=== PATIENT | female | born 1980 | race Caucasian/White ===

== ENCOUNTER 2020-11-27 14:56 | Outpatient (REF) | payer BC, SELFPAY ==
--- NOTE | 2020-11-27 15:00 | MM_ITS ---
EXAMINATION: MM SCREENING DIGITAL BREAST TOMOSYNTHESIS, BILATERAL CLINICAL INFORMATION: Screening. Asymptomatic. No prior breast imaging. Age 40. No known family history breast cancer. The lifetime risk of breast cancer based on the Tyrer-Cuzick Model is 7%. COMPARISON: None (current study represents initial baseline exam). TECHNIQUE: Digital breast tomosynthesis is performed in both the craniocaudal and mediolateral oblique views along with computer-aided detection (CAD). Synthesized 2D images are generated from the tomosynthesis. FINDINGS: The breasts are heterogeneously dense, which may obscure small masses (ACR BI-RADS breast composition Category c). Breast tissue composition borders on average fibroglandular. There is a dermal lesion overlying the mid 11:00 left breast. There are no significant masses, abnormal calcifications, or other abnormalities. The axilla are unremarkable. MM/MM tomosynthesis screening BI IMPRESSION: No mammographic evidence of malignancy. ASSESSMENT: BI-RADS 2: Benign RECOMMENDATION: Routine annual mammography screening. This patient's information was entered into a reminder system with a target due date for their next mammogram.
== END 2020-11-27 14:57 | disposition home or self-care (01) ==
LOC: HO.MAMMO 14:56
PROVIDERS: PCP Internal Medicine; Visit Provider Internal Medicine
DX: Z12.31 Encounter for screening mammogram for malignant neoplasm of breast (principal)
CPT/HCPCS: 77063; 77067

== ENCOUNTER 2021-09-21 08:08 | Outpatient (REF) | payer BC, SELFPAY ==
[2021-09-21 11:25] LABS: MANUAL DIFF FLAG NO
[2021-09-21 11:33] LABS: Basophils Percent Auto 0.5 % (0-2); Eosinophils Absolute Auto 0.1 X10*3/uL (0.0-0.4); Eosinophils Percent Auto 1.9 % (0-4); Hematocrit 40.1 % (37.0-47.0); Hemoglobin 13.5 g/dl (12.0-16.0); Imm Gran Abs Auto 0.02 X10*3/uL (0.00-0.03); Imm Gran Pct Auto 0.3 % (0.0-0.4); Lymphocytes Absolute Auto 2.4 X10*3/uL (1.2-4.9); Lymphocytes Percent Auto 36.7 % (20-40); Mean Corpuscular HGB Conc 33.7 g/dl (31.0-35.0); Mean Corpuscular Hemoglobin 29.5 pg (27.0-33.0); Mean Corpuscular Volume 87.6 fL (80.0-98.0); Mean Platelet Volume 12.2 fL (9.4-12.3); Monocytes Absolute Auto 0.5 X10*3/uL (0.1-1.2); Neutrophils Absolute Auto 3.37 x10*3/uL (2.0-8.3); Neutrophils Percent Auto 52.6 % (45-73); Platelet Count 212 X10*3/uL (160-400); Red Blood Count 4.58 X10*6/uL (4.20-5.50); Red Cell Distribution Width 12.3 % (11.0-16.0); White Blood Count 6.4 X10*3/uL (4.8-10.8)
[2021-09-21 11:52] LABS: Ethanol < 10 mg/dL
[2021-09-21 12:08] LABS: Alanine Aminotransferase 28 U/L (0-31); Albumin Level 4.3 g/dL (3.5-5.0); Alkaline Phosphatase 47 U/L (39-117); Anion Gap 11 (12-20); Aspartate Amino Transferase 18 U/L (5-31); Bilirubin Total 0.5 mg/dL (0.0-1.0); Blood Urea Nitrogen 11 mg/dL (9-16); Carbon Dioxide 25 mmol/L (22-29); Chloride 104 mmol/L (96-108); Cholesterol 195 mg/dL; Estimated Glomerular Filt Rate > 60; Glucose Fasting 114 mg/dL (60-99); HDL Cholesterol 44 mg/dL; LDL Cholesterol Calculated 102 mg/dl; Potassium 4.3 mmol/L (3.3-5.1); Sodium 136 mmol/L (135-145); Total Protein 6.8 g/dL (6.5-8.0); Triglycerides 249 mg/dL
== END 2021-09-21 08:09 | disposition home or self-care (01) ==
LOC: HO.HMGCLDS 08:08
PROVIDERS: PCP Internal Medicine; Visit Provider Internal Medicine
DX: Z00.01 Encounter for general adult medical examination with abnormal findings (principal); E66.3 Overweight; K21.9 Gastro-esophageal reflux disease without esophagitis; F10.20 Alcohol dependence, uncomplicated
CPT/HCPCS: 36415; 80053; 80061; 82077; 85025

== ENCOUNTER 2021-11-15 10:29 | Outpatient (REF) | payer BC, SELFPAY | END 2021-11-15 10:30 | disposition home or self-care (01) | LOC: HO.HMGCLDS 10:29 | PROVIDERS: Visit Provider Internal Medicine | DX: Z20.822 Contact with and (suspected) exposure to COVID-19 (principal) | CPT/HCPCS: C9803; U0003; U0005 ==

== ENCOUNTER 2022-01-18 21:38 | Inpatient (IN) | payer BC, SELFPAY ==
--- NOTE | ~2022-01-18 | CT_ITS ---
EXAMINATION: CT ABDOMEN AND PELVIS WITH CONTRAST CLINICAL INFORMATION: Post perforated diverticulitis. Question abscess. COMPARISON: Previous CT scan of the abdomen and pelvis earlier this month TECHNIQUE: Multidetector volumetric images were obtained from the superior aspect of the liver through the pubic symphysis following administration 85 mL of Omnipaque 350 intravenous contrast. Sagittal and coronal reformatted images were obtained on the technologist's workstation. Oral contrast: No This CT examination was performed using dose optimization techniques as appropriate, variously including the following: *Automated exposure control *Adjustment of mA and/or kV according to patient size (this includes techniques or standardized protocols for targeted exams where dose is matched to indication/reason for exam; i.e. extremities or head) *Use of iterative reconstruction technique DLP: 435 mGy-cm FINDINGS: LUNG BASES: There are small bilateral pleural effusions and bilateral lower lobe atelectasis. LIVER, GALLBLADDER, AND BILIARY TREE: The liver is normal in size, shape, and attenuation. No focal hepatic lesion or biliary ductal dilatation is present. The gallbladder is unremarkable with no evidence of radiopaque gallstones, gallbladder wall thickening, or obvious pericholecystic inflammatory changes. PANCREAS: Unremarkable. SPLEEN: Unremarkable. ADRENAL GLANDS: Unremarkable. KIDNEYS AND URETERS: The kidneys are normal in size, shape, and attenuation. No hydronephrosis, hydroureter, or calculi seen. No perinephric stranding. BLADDER: Unremarkable. GASTROINTESTINAL TRACT: There are new postsurgical changes to the left colon with left lower quadrant colostomy. There is still wall thickening and edema of the cecum questionable for colitis. The appendix has been removed. Small and large bowel is otherwise unremarkable. No free air is seen. There is a small amount of extraperitoneal air seen in the pelvis. There is trace ascites, greatest in the left lower quadrant. ABDOMINAL WALL: There are postoperative changes to the midline abdominal wall. There is a left lower quadrant colostomy. There is a small amount of air seen in the subcutaneous fat surrounding the colostomy. LYMPH NODES: Normal. VASCULAR: Unremarkable. PELVIC VISCERA: There is an IUD in the uterus satisfactory position. There is a 3 cm enhancing lesion in the posterior uterine body probably representing a fibroid. There is a 2 cm left ovarian cyst. May be a small 1 cm right ovarian cyst. OSSEOUS STRUCTURES: Unremarkable. CT/CT abdomen pelvis w con IMPRESSION: New postsurgical changes to the colon and left lower quadrant colostomy. Persistent mild wall thickening and edema of the cecum questionable for colitis. The appendix has been removed. Trace ascites, greatest in the left lower quadrant. No abscess. Small amount of extraperitoneal air in the pelvis. IUD in the uterus and satisfactory lesion. 2 cm left ovarian cyst. Fleischner guidelines were followed.
--- NOTE | ~2022-01-18 | CT_ITS ---
EXAMINATION: CT ABDOMEN AND PELVIS WITH CONTRAST CLINICAL INFORMATION: Left lower quadrant pain COMPARISON: Ultrasound abdomen 08/20/2012 TECHNIQUE: Multidetector volumetric images were obtained from the superior aspect of the liver through the pubic symphysis following administration 85 mL of Omnipaque 350 intravenous contrast. Sagittal and coronal reformatted images were obtained on the technologist's workstation. Oral contrast: No This CT examination was performed using dose optimization techniques as appropriate, variously including the following: *Automated exposure control *Adjustment of mA and/or kV according to patient size (this includes techniques or standardized protocols for targeted exams where dose is matched to indication/reason for exam; i.e. extremities or head) *Use of iterative reconstruction technique DLP: 585 mGy-cm FINDINGS: LUNG BASES: The visualized lung bases are unremarkable. Some minimal basilar atelectasis is seen. LIVER, GALLBLADDER, AND BILIARY TREE: The liver is normal in size, shape, and attenuation. No focal hepatic lesion or biliary ductal dilatation is present. The gallbladder is unremarkable with no evidence of radiopaque gallstones, gallbladder wall thickening, or obvious pericholecystic inflammatory changes. PANCREAS: Unremarkable. SPLEEN: Unremarkable. ADRENAL GLANDS: Unremarkable. KIDNEYS AND URETERS: The kidneys are normal in size, shape, and attenuation. No hydronephrosis, hydroureter, or calculi seen. No perinephric stranding. BLADDER: Unremarkable. GASTROINTESTINAL TRACT: Free intraperitoneal air is present with multiple tiny air bubbles seen in the mesentery. There are number of abnormalities seen including an inflammatory process in the region of the cecum as well as in the region of the sigmoid both of which are quite close to one another. Differential diagnosis would include a ruptured cecal diverticulum with diverticulitis or possibly sigmoid diverticulum although the sigmoid changes may be secondary inflammation. Some secondary inflammation is also seen in some small bowel loops with some associated tethering. No drainable abscess is seen. No portal venous gas is present. No large volume ascites is seen. ABDOMINAL WALL: No significant hernia is appreciated. LYMPH NODES: Normal. VASCULAR: Unremarkable aside from dilated refluxing left ovarian vein with only a small number of pelvic varices.. PELVIC VISCERA: An anteverted uterus is present which contains an IUD in good position. Uterine fibroids may be present. An abnormal adnexal mass is not seen. A small amount of free intraperitoneal fluid is present.. OSSEOUS STRUCTURES: Unremarkable. CT/CT abdomen pelvis w con IMPRESSION: There is a ruptured viscus with free intraperitoneal air. The culprit probably is the cecum with a ruptured diverticulum. The appendix is normal. Inflammatory changes are also present around the sigmoid, but this could be secondarily involved. Some mild inflammatory changes also seen in some small bowel loops with some mild tethering. No focal drainable collection is seen. Incidental note made of probable uterine fibroids which could be confirmed with elective pelvic ultrasound when patient is stable. This critical result was discussed with Kellie ARSHAD at 12:20 AM on 01/19/2022 and it was ascertained that the content and urgency of the report was understood at the time of direct communication. Fleischner guidelines were followed.
--- NOTE | ~2022-01-18 | XR_ITS ---
EXAMINATION: XR CHEST CLINICAL INFORMATION: Right chest pain COMPARISON: 03/22/2016 TECHNIQUE: AP portable view of the chest was obtained. FINDINGS: Low lung volumes. There are increased markings at both lung bases. This could represent acute airspace disease. Blunting of both costophrenic angles suggest associated effusions. Pneumonia is a concern. No pneumothorax. The heart and mediastinum are grossly normal; low volumes distorts mediastinal structures. Pulmonary vasculature is normal in caliber without edema. Normal gas pattern. No acute osseous finding. XR/XR chest 1V IMPRESSION: Patchy airspace opacities at both lung bases with blunting of the costophrenic angles suggests acute airspace disease and small effusions.
--- NOTE | ~2022-01-18 | CT_ITS ---
EXAMINATION: CT ABDOMEN AND PELVIS WITHOUT CONTRAST CLINICAL INFORMATION: Follow-up perforated bowel. COMPARISON: None. TECHNIQUE: Multidetector volumetric imaging was performed from the superior aspect of the liver through the pubic symphysis. Sagittal and coronal reformatted images were obtained on the technologist's workstation. This CT examination was performed using dose optimization techniques as appropriate, variously including the following: *Automated exposure control *Adjustment of mA and/or kV according to patient size (this includes techniques or standardized protocols for targeted exams where dose is matched to indication/reason for exam; i.e. extremities or head) *Use of iterative reconstruction technique DLP: 486 mGy-cm FINDINGS: LUNG BASES: Heart size normal. There is bilateral posterior pleural reaction seen. LIVER, GALLBLADDER, AND BILIARY TREE: The liver is normal in size, shape, and attenuation. No focal hepatic lesion or biliary ductal dilatation is present. The gallbladder is unremarkable with no evidence of radiopaque gallstones, gallbladder wall thickening, or obvious pericholecystic inflammatory changes. PANCREAS: Unremarkable. SPLEEN: Unremarkable. ADRENAL GLANDS: Unremarkable. KIDNEYS AND URETERS: The kidneys are normal in size, shape, and attenuation. No hydronephrosis, hydroureter, or calculi seen. No perinephric stranding. BLADDER: Unremarkable. GASTROINTESTINAL TRACT: There is free intraperitoneal air, slightly less than previous exam. However, there is likely an abscess with air-fluid level in the right lower quadrant adjacent and inferior to the cecum. Even though the appendix is visualized in the mid and distal segment, the base is not visualized on the previous exam or on the present exam. Differential diagnosis includes perforation of the base of cecum, appendix or a cecal diverticulum. There is significant inflammation with secondary mural thickening and fat stranding involving the terminal ileum and the redundant sigmoid colon. ABDOMINAL WALL: No significant hernia is appreciated. LYMPH NODES: Small shotty mesenteric lymph nodes are seen. The finding nodule right mesenteric lymph node on image 51/3. VASCULAR: Unremarkable. PELVIC VISCERA: The uterus is anteverted with an IUD well located within the endometrial canal. There is no free fluid. OSSEOUS STRUCTURES: No aggressive lytic or sclerotic process seen. CT/CT abdomen pelvis wo con IMPRESSION: Known ruptured viscus with intraperitoneal free air slightly decreased in size compared to earliest study from 01/18/2022. Complex inflammatory changes in the right lower quadrant inferior to the cecum. Differential diagnosis includes ruptured cecal diverticulum, ruptured base of appendix or ruptured cecal/appendix mass. There are reactionary mural thickening involving the redundant sigmoid colon, terminal ileum with adjacent fat stranding. There is bilateral dependent posterior pleural thickening similar to previous study. Results were discussed with Dr. Jorge Marrero at 1:10 PM in person. Fleischner guidelines were followed.
[2022-01-18 21:49] VITALS: BP 121/94; PULSE 117; RESP 16; TEMP 38.8; O2SAT 94; BMI 27.4
[2022-01-18 22:15] LABS: Basophils Percent Auto 0.2 % (0-2); Eosinophils Percent Auto 0.1 % (0-4); Hematocrit 36.4 % (37.0-47.0); Hemoglobin 12.1 g/dl (12.0-16.0); Imm Gran Abs Auto 0.05 X10*3/uL (0.00-0.03); Imm Gran Pct Auto 0.4 % (0.0-0.4); Lymphocytes Absolute Auto 0.9 X10*3/uL (1.2-4.9); Lymphocytes Percent Auto 6.5 % (20-40); MANUAL DIFF FLAG SCAN; Mean Corpuscular HGB Conc 33.2 g/dl (31.0-35.0); Mean Corpuscular Hemoglobin 29.7 pg (27.0-33.0); Mean Corpuscular Volume 89.2 fL (80.0-98.0); Monocytes Absolute Auto 0.4 X10*3/uL (0.1-1.2); Monocytes Percent Auto 2.7 % (2-11); Neutrophils Absolute Auto 12.2 x10*3/uL (2.0-8.3); Neutrophils Percent Auto 90.1 % (45-73); Platelet Count 219 X10*3/uL (160-400); Red Blood Count 4.08 X10*6/uL (4.20-5.50); Red Cell Distribution Width 12.5 % (11.0-16.0); SCAN SMEAR FLAG 1; White Blood Count 13.5 X10*3/uL (4.8-10.8)
[2022-01-18 22:27] VITALS: BP 148/93; PULSE 121; RESP 18; TEMP 38.6; O2SAT 96
[2022-01-18 22:31] LABS: Anion Gap 15 (12-20); Blood Urea Nitrogen 9 mg/dL (9-16); Carbon Dioxide 23 mmol/L (22-29); Chloride 100 mmol/L (96-108); Creatinine Clr Calc Pharmacy 101.9; Estimated Glomerular Filt Rate > 60; Glucose Random 111 mg/dL (60-115); Potassium 3.7 mmol/L (3.3-5.1); Sodium 134 mmol/L (135-145)
[2022-01-18 22:35] LABS: SLIDE REVIEW VERIFIED
--- NOTE | 2022-01-18 22:52 | ED_ITS ---
HPI - Abdominal Pain General Chief Complaint: Abdominal Pain Stated Complaint: lower abd pain Time Seen by Provider: 01/18/22 22:40 Source: patient Mode of arrival: ambulatory Limitations: no limitations History of Present Illness HPI narrative: This is a 41-year-old female past medical history significant for alcoholism presenting to the emergency department with complaints of severe left lower quadrant and lower abdominal pain severe x1 day. Patient tells me that recently she was diagnosed with diverticulitis, she was seen at [facility] yesterday discharged home on oxycodone for pain. At this time patient tells me that her pain became severe, and on manageable even with p.o. oxycodone. Patient tells me that everything hurts, bumps on the road, touching it. She rates it a 10/10 pain she tells me it is worse in the left lower quadrant however it is all over her lower abdomen at this time. She also reports a fever of 102 at home. Here she is febrile. She appears to be very uncomfortable. She denies nausea, vomiting, chest pain, shortness of breath, diarrhea, constipation. MD elicited complaint: abdominal pain Pertinent past history: diverticulitis Onset (ago): day(s) (1) Pain Consistency: constant Location: none Severity: severe Pain scale (0-10): 10 Quality: stabbing and sharp Radiation: none Migration to: no migration Exacerbating factors: movement Relieving factors: nothing Associated symptoms: denies other symptoms Related Data Previous Rx's Medication Instructions Recorded lorazepam 0.5 mg tablet 0.5 mg PO DAILY PRN 2 Days #2 tab 09/27/21 pantoprazole 40 mg tablet,delayed 40 mg PO DAILY #90 tab 11/18/21 release Allergies Allergy/AdvReac Type Severity Reaction Status Date / Time No Known Allergies Allergy Unverified 09/17/21 12:04 [No Known Allergies*] Review of Systems Review of Systems Constitutional : No Weight loss, No Fever, No Chills ENT/Mouth :? No sore throat, No Rhinorrhea Eyes: No Swelling, No Redness Cardiovascular : No Chest Pain, No SOB, NoEdema Respiratory : No Cough, No Sputum, No Wheezing Gastrointestinal : No Nausea, No Vomiting, No Diarrhea, positive abdominal Pain, No Hematochezia, No Melena Genitourinary : No Dysuria, No Urinary Frequency, No Hematuria, No Urgency Musculoskeletal : No joint pain, No Myalgias, No Joint Swelling Skin : No Skin Lesions, No rash Neuro : No Weakness, No Numbness, No Dizziness, No Headache Psych : No Anxiety/Panic, No Depression All other systems reviewed and are negative. Yes all other systems are reviewed and are negative [facility] Past Medical History Attestation statement: The following information was validated with the patient. Source: old records reviewed and nursing notes reviewed Medical History Diverticulitis Surgical History No pertinent past surgical history Family History Family History Father HTN (hypertension) History of CVA (cerebrovascular accident) Mother No problems noted. Maternal Grandfather Myocardial infarction Paternal Grandfather Myocardial infarction Brother No problems noted. Sister No problems noted. Daughter No problems noted. Daughter No problems noted. Social History Social History Housing: House Patient Tobacco Use Status: Current everyday Tobacco user Cigarettes Per Day: 1 Advance Directives: No Patient : No Current occupational status: employed Physical Exam ED Vital Signs: Vital Signs - 24 hr 01/18/22 21:49 01/18/22 22:27 Temperature 101.8 F H 101.5 F H Pulse Rate 117 H 121 H Respiratory Rate 16 18 Blood Pressure 121/94 H 148/93 H Pulse Oximetry 94 96 BMI result Body Mass Index 27.4 Patient is noted to be febrile, tachycardic. Appearance: Alert.? Oriented X3.? No acute distress.? Patient appears very uncomfortable. Pain to abdomen when I kick stretcher. Head: Normocephalic, atraumatic, no step-offs or deformities Eyes: Pupils equal, round and reactive to light.? ENT: Pharynx normal.? Neck: Normal inspection.? Neck supple.? CVS: Rapid rate regular rhythm, likely sinus tachycardia. Pulses normal.? Respiratory: No respiratory distress.? Breath sounds normal.? Abdomen: Soft and + severe abdominal pain with palpation to left lower quadrant, and lower abdomen. Patient reports pain when I kick the stretcher concerning for peritonitis/acute abdomen Skin: Skin warm and dry.? Normal skin color.? Normal skin turgor.? Extremities: No lower extremity edema.? No calf ttp. 5/5 strength to bilateral upper and lower extremities Back: No midline tenderness, no C-spine tenderness, full range of motion, no CVA tenderness bilaterally. Neuro: Oriented X 3.? No motor deficit.? No sensory deficit. CN 2-12 intact Course Reevaluation(s) Reevaluation #1: Patient noted to have leukocytosis. No acute electrolyte abnormalities. UA pending. COVID pending. Time: 22:57 Reevaluation #2: Received a critical call from [facility]- CT abdomen free air in abdomen could be cecum/sigmoid likely cecum. Time: 00:25 Reevaluation #3: Spoke to Dr. Millan who will admit patient to surgery. Time: 00:38 MDM - Abdominal Pain MDM Narrative Medical decision making narrative: 1030 41 yo f presents w/ severe lower abdominal pain, has been present for we cover pain worse this morning. Was evaluated yesterday at [place] where she was told she had acute diverticulitis. Today she presents with fevers as well. Upon physical examination patient very uncomfortable, grimacing. She reports pain when acute the stretcher concerning for acute abdomen/peritonitis. Pain with palpation to left lower quadrant. An to all lower abdomen. Normoactive bowel sounds. Id rapid rate regular rhythm consistent with sinus tachycardia. Lungs clear. Patient noted to be febrile. And tachycardic. At this time sections suspected fluids, and antibiotics will be ordered prophylactically as well as blood cultures and a lactic. Plan is lab work, CT of the abdomen to rule out perforated diverticulum. Medical Records Attestation: I reviewed the patient's medical records. Lab Data Attestation: I reviewed the patient's lab results. Result diagrams: 01/18/22 22:00 01/18/22 22:00 Labs: Lab Results 01/18/22 01/18/22 01/18/22 Range/Units 22:00 22:00 22:43 WBC 13.5 H (4.8-10.8) X10*3/uL RBC 4.08 L (4.20-5.50) X10*6/uL Hgb 12.1 (12.0-16.0) g/dl Hct 36.4 L (37.0-47.0) % MCV 89.2 (80.0-98.0) fL MCH 29.7 (27.0-33.0) pg MCHC 33.2 (31.0-35.0) g/dl RDW 12.5 (11.0-16.0) % Plt Count 219 (160-400) X10*3/uL MPV 11.0 (9.4-12.3) fL Immature Gran % (Auto) 0.4 (0.0-0.4) % Neut % (Auto) 90.1 H (45-73) % Lymph % (Auto) 6.5 L (20-40) % [place] % (Auto) 2.7 (2-11) % Eos % (Auto) 0.1 (0-4) % Baso % (Auto) 0.2 (0-2) % Lymph # (Auto) 0.9 L (1.2-4.9) X10*3/uL [place] # (Auto) 0.4 (0.1-1.2) X10*3/uL Eos # (Auto) 0.0 (0.0-0.4) X10*3/uL Baso # (Auto) 0.0 (0.0-0.2) X10*3/uL Abs Immat Gran (auto) 0.05 H (0.00-0.03) X10*3/uL Absolute Neuts (auto) 12.2 H (2.0-8.3) x10*3/uL Absolute Nucleated RBC 0.000 (0.0-0.012) X10*3/uL Nucleated RBC % (auto) 0.0 (0.0-0.2) /100WBC Smear Tech's Comments VERIFIED Sodium 134 L (135-145) mmol/L Potassium 3.7 (3.3-5.1) mmol/L Chloride 100 (96-108) mmol/L Carbon Dioxide 23 (22-29) mmol/L Anion Gap 15 (12-20) BUN 9 (9-16) mg/dL Creatinine 0.65 (0.5-1.4) mg/dL Estim Creat Clear Calc 101.9 Estimated GFR > 60 Random Glucose 111 (60-115) mg/dL Lactic Acid (0.5-2.0) mmol/L Calcium 9.0 (8.4-10.2) mg/dL Lipase 9 (8-78) U/L Urine Color DK YELLOW Urine Appearance HAZY Urine pH 6.0 (5.0-8.0) Ur Specific [place] >= 1.030 H (1.005-1.025) Urine Protein 2+ H (NEG-TRACE) MG/DL Urine Glucose (UA) NEG (NEG) MG/DL Urine Ketones >=80 (NEG) MG/DL Urine Blood TRACE (NEG) Urine Nitrite NEG (NEG) Ur Leukocyte Esterase NEG (NEG) Urine RBC 10-14 H (0) /HPF Urine WBC 0 (0-4) /HPF Ur Squamous Epith Cells 3+ /LPF Urine Bacteria NONE /LPF Granular Casts 1-4 /LPF Urine Mucus 4+ /LPF Urine Test (NEGATIVE) COVID-19 ([facility]) (Negative) COVID-19 Clin Com 01/18/22 01/18/22 01/19/22 Range/Units 22:43 22:57 00:12 WBC (4.8-10.8) X10*3/uL RBC (4.20-5.50) X10*6/uL Hgb (12.0-16.0) g/dl Hct (37.0-47.0) % MCV (80.0-98.0) fL MCH (27.0-33.0) pg MCHC (31.0-35.0) g/dl RDW (11.0-16.0) % Plt Count (160-400) X10*3/uL MPV (9.4-12.3) fL Immature Gran % (Auto) (0.0-0.4) % Neut % (Auto) (45-73) % Lymph % (Auto) (20-40) % [place] % (Auto) (2-11) % Eos % (Auto) (0-4) % Baso % (Auto) (0-2) % Lymph # (Auto) (1.2-4.9) X10*3/uL [place] # (Auto) (0.1-1.2) X10*3/uL Eos # (Auto) (0.0-0.4) X10*3/uL Baso # (Auto) (0.0-0.2) X10*3/uL Abs Immat Gran (auto) (0.00-0.03) X10*3/uL Absolute Neuts (auto) (2.0-8.3) x10*3/uL Absolute Nucleated RBC (0.0-0.012) X10*3/uL Nucleated RBC % (auto) (0.0-0.2) /100WBC Smear Tech's Comments Sodium (135-145) mmol/L Potassium (3.3-5.1) mmol/L Chloride (96-108) mmol/L Carbon Dioxide (22-29) mmol/L Anion Gap (12-20) BUN (9-16) mg/dL Creatinine (0.5-1.4) mg/dL Estim Creat Clear Calc Estimated GFR Random Glucose (60-115) mg/dL Lactic Acid 1.0 (0.5-2.0) mmol/L Calcium (8.4-10.2) mg/dL Lipase (8-78) U/L Urine Color Urine Appearance Urine pH (5.0-8.0) Ur Specific [place] (1.005-1.025) Urine Protein (NEG-TRACE) MG/DL Urine Glucose (UA) (NEG) MG/DL Urine Ketones (NEG) MG/DL Urine Blood (NEG) Urine Nitrite (NEG) Ur Leukocyte Esterase (NEG) Urine RBC (0) /HPF Urine WBC (0-4) /HPF Ur Squamous Epith Cells /LPF Urine Bacteria /LPF Granular Casts /LPF Urine Mucus /LPF Urine Test NEGATIVE (NEGATIVE) COVID-19 ([facility]) Negative (Negative) COVID-19 Clin Com See Note Critical Care Time Critical Care Time Critical Care Time: Yes Total Critical Care Time: 35 Attestation: I attest to this time spent taking care of the patient obtaining history, physical exam reviewing labs, imaging speaking to surgery. Discharge Plan Discharge Clinical Impression: Acute abdomen Patient Disposition: Admitted As Inpatient Prescriptions: No Action lorazepam 0.5 mg tablet 0.5 mg PO DAILY PRN (Reason: anxiety) 2 Days Qty: 2 0RF pantoprazole 40 mg tablet,delayed release (DR/EC) 40 mg PO DAILY Qty: 90 0RF
[2022-01-18] MEDS: 0.9 % Sodium Chloride 1,000 ML 999 ML IV ×2 (22:54→23:45)
[2022-01-18] MEDS: Acetaminophen 325 MG TABLET 975 MG PO (23:01)
[2022-01-18] MEDS: ondansetron HCL 4 MG/2 ML VIAL IVPUSH (23:02)
[2022-01-18] MEDS: Morphine Sulfate 4 MG/ML CARTRIDGE IVPUSH (23:02)
[2022-01-18] MEDS: Piperacillin Sodium/Tazobactam 3.375 GM in 0.9 % Sodium Chloride 50 ML IV (23:02)
[2022-01-18 23:09] LABS: Appearance Urine HAZY; Color Urine DK YELLOW; Glucose Urine UA NEG (NEG); Leukocyte Esterase Urine NEG (NEG); Nitrite Urine NEG (NEG); Specific Gravity - Urine >= 1.030 (1.005-1.025); UACC Culture Trigger NO; Urine Blood TRACE (NEG); Urine Ketones >=80 MG/DL (NEG); Urine Protein 2+ MG/DL (NEG-TRACE)
[2022-01-18 23:11] LABS: UPreg QC Valid YES; Urine Pregnancy NEGATIVE (NEGATIVE)
[2022-01-18 23:14] LABS: Squamous Epithelial Cell Urine 3+ /LPF; WBC Urine 0 /HPF (0-4)
[2022-01-18 23:15] LABS: Mucus Urine 4+ /LPF
[2022-01-18 23:18] LABS: Lipase 9 U/L (8-78)
[2022-01-18] MEDS: LORazepam 2 MG/ML VIAL 1 MG IVPUSH (23:20)
[2022-01-18] MEDS: iohexoL 350 MG/ML 100 ML INFUS..BTL 85 ML IV (23:35)
[2022-01-19] VITALS (17 sets, daily range): BP systolic 106–176; BP diastolic 62–103; PULSE 82–100; RESP 14–18; TEMP 36.3–37.4; O2SAT 94–100; BMI 27.3
[2022-01-19 00:30] LABS: COVID-19 Test Negative (Negative)
--- NOTE | 2022-01-19 00:51 | PM.HPGS ---
History of Present Illness History of Present Illness Date of Service: 01/19/22 Chief complaint: Diverticulitis with microperforation Narrative: Abby Whatley is a 41 year old female presenting with complaints of severe abdominal pain in the left lower quadrant. She was previously evaluated at [facility] and diagnosed with diverticulitis, and discharged to home on pain meds. She presented today with increased abdominal pain mainly in the lower abdomen. Pain was associated with nausea without vomiting visible was loose stool. She also was febrile with chills. She denies a similar pain. She denies previous abdominal surgery. She has a history of acid reflux. In the emergency department, she was found to be tender throughout her abdomen, especially on the left lower quadrant. WBC was elevated and CT revealed bubbles of intraperitoneal air suggestive of a perforated colon, perhaps the cecum or sigmoid colon. She is admitted to the surgical service for further management. Review of Systems Constitutional: Constitutional: Reports chills, Reports fever(s), Denies headache(s) and Reports poor appetite ENT: Denies dizziness and Denies headache(s) Cardiovascular: Cardiovascular: Denies chest pain, Denies rapid heart rate, Denies palpitations and Denies slow heart rate Respiratory: Respiratory: Denies chest congestion, Denies cough, Denies pain on inspiration and Denies wheezing Gastrointestinal: Gastrointestinal: Reports abdominal pain, Reports bloating, Denies change in stool character, Denies constipation, Denies diarrhea, Denies nausea, Denies vomiting and Denies hematemesis Musculoskeletal: Musculoskeletal: Denies back pain, Denies arthralgias, Denies joint swelling and Denies numbness Integumentary/Breasts: Skin/Breast: Denies change in pigmentation, Denies erythema and Denies rash Neurologic: Denies dizziness, Denies headache(s) and Denies numbness Psychiatric: Psychiatric: Denies anxiety and Denies depression Endocrine: Endocrine: Denies palpitations Hematologic/Lymphatic: Hematologic/Lymphatic: Denies easy bleeding, Denies easy bruising and Denies lymphadenopathy Allergic/Immunologic: Allergic/Immunologic: Denies wheezing PMFSH Past Medical History Medical History (Updated 01/19/22 @ 14:26 by Jorge Marrero MD) Diverticulitis GERD (gastroesophageal reflux disease) Family History Family History Father HTN (hypertension) History of CVA (cerebrovascular accident) Mother No problems noted. Maternal Grandfather Myocardial infarction Paternal Grandfather Myocardial infarction Brother No problems noted. Sister No problems noted. Daughter No problems noted. Daughter No problems noted. Surgical History Surgical History No pertinent past surgical history Social History Social History Housing: House Patient Tobacco Use Status: Current everyday Tobacco user Tobacco use type: Cigarette Cigarettes Per Day: 6 Use of substances other than those prescribed or required for medical reasons: No Are you DNR?: No Advance Directives: No Patient : No Current occupational status: employed Meds Allergies Allergy/AdvReac Type Severity Reaction Status Date / Time No Known Allergies Allergy Verified 01/19/22 14:17 [No Known Allergies*] Active Medications: Current Medications Dextrose/Lactated Ringer's (D5lr) 1,000 mls @ 125 mls/hr IVCONT .Q8H KAVON Acetaminophen (Ofirmev) 1,000 mg in 100 mls @ 400 mls/hr IV Q6H KAVON Stop: 01/19/22 18:59 Piperacillin Sod/Tazobactam (Sod 3.375 gm/ Sodium Chloride) 50 mls @ 100 mls/hr IV Q6H KAVON Morphine Sulfate (Morphine Sulfate 4 Mg/Ml Cartridge) 4 mg IVPUSH Q2H PRN; Protocol PRN Reason: Pain, Severe (Pain Scale 7-10) Ondansetron HCl (Ondansetron Hcl 4 Mg/2 Ml Vial) 4 mg IVPUSH QID PRN PRN Reason: Nausea Pharmacy Consult (Consult Rx Perform Med Rec) 1 each MISCELLANE ONCE PRN PRN Reason: Consult order Zolpidem Tartrate (Zolpidem Tartrate 5 Mg Tablet) 5 mg PO BEDTIME PRN PRN Reason: Insomnia Physical Exam Vital Signs: Vital Signs: Last Vital Signs Temp 99.0 F 01/19/22 00:26 Pulse 100 01/19/22 00:26 Resp 16 01/19/22 00:26 BP 125/72 01/19/22 00:26 Pulse Ox 94 01/19/22 00:26 BMI result Body Mass Index 27.4 Const: General: cooperative and well developed Nutritional Appearance: well nourished Orientation/consciousness: patient oriented x3 HENMT: Head: Yes normocephalic and Yes atraumatic Ears: hearing grossly normal bilaterally Eyes: Sclerae: sclerae normal EOM: EOMs intact bilaterally Neck: Neck: Yes normal visual inspection Resp: Effort & Inspection: normal respiratory effort, no cough, no respiratory distress and no stridor Auscultation: clear to auscultation bilaterally Cardio: Jugular venous distension: no JVD GI: Palpation (GI): Soft to palpation, Tenderness to palpation present (GI) in the LLQ and in the RLQ, no guarding and not rigid Auscultation: normal bowel sounds Rectal Exam - Female: deferred Skin: General skin exam: no rashes or lesions noted and dry skin Rashes: no rashes Neuro: General: patient oriented x3 and no focal motor deficits Extrem: General: Yes full ROM and Yes no clubbing, cyanosis or edema Psych: Appearance: grossly normal Results Results Labs: Short CBC 01/18/22 Range/Units 22:00 WBC 13.5 H (4.8-10.8) X10*3/uL Hgb 12.1 (12.0-16.0) g/dl Hct 36.4 L (37.0-47.0) % Plt Count 219 (160-400) X10*3/uL BMP 01/18/22 22:00 Sodium 134 L Potassium 3.7 Chloride 100 Carbon Dioxide 23 BUN 9 Creatinine 0.65 Calcium 9.0 Urine 01/18/22 01/18/22 Range/Units 22:43 22:43 Urine Color DK YELLOW Urine Appearance HAZY Urine pH 6.0 (5.0-8.0) Ur Specific [place] >= 1.030 H (1.005-1.025) Urine Protein 2+ H (NEG-TRACE) MG/DL Urine Glucose (UA) NEG (NEG) MG/DL Urine Test NEGATIVE (NEGATIVE) Assessment and Plan (1) Acute appendicitis with appendiceal abscess: Status: Acute (2) Acute abdomen: Status: Acute Plan 41 year old female with possible perforation of the colon, ? sigmoid diverticulum verses cecum with bubbles of free intraperitoneal air. Patient admitted for IV antibiotics, IV hydration, Bowel rest. WBC this morning is improved with IV antibiotics but patient continues to have abdominal pain. A repeat CT of the abdomen and pelvis without contrast was performed this afternoon and findings are more suggestive of acute appendicitis rather than diverticulitis, probable perforated appendicitis. The findings on CT were reviewed with the patient. I recommended a laparoscopic or possible open appendectomy. After a discussion of the procedure, alternatives and risks, she consents to the procedure. She will be added on to the OR schedule for today. Quality Stroke Does the patient have a stroke diagnosis?: No VTE Prior VTE?: No VTE Risk Level:: Surgical - moderate VTE Device Contraindication: N/A - Device Ordered VTE Drug Contraindication: Treatment Not Indicated Procedures Date of Service Date of Service: 01/19/22
[2022-01-19 01:00] LABS: INTERNATIONAL NORM RATIO 1.4 (0.9-1.1); Prothrombin Time 15.7 SEC (9.9-13.0)
[2022-01-19] MEDS: Dextrose 5 % and Lactated Ring 1,000 ML 125 ML IVCONT ×3 (01:50→19:57)
[2022-01-19] MEDS: Morphine Sulfate 4 MG/ML CARTRIDGE IVPUSH ×4 (02:55→23:21)
--- NOTE | 2022-01-19 03:32 | PC.NURSE ---
Assumed care of pt Pt ambulatory from stretcher to bathroom and to hospital bed. Gait even and steady. Pt tolerated well Pt made aware of plan: NPO and surgery in AM. Pt and daughter verbalized understanding. Daughter (Garima Abad) would like to be called prior to surgery: [phone] Hubert took pt's belongings home Will continue to monitor
[2022-01-19] MEDS: Piperacillin Sodium/Tazobactam 3.375 GM in 0.9 % Sodium Chloride 50 ML IV ×3 (05:17→21:57)
[2022-01-19 07:11] LABS: MANUAL DIFF FLAG NO
[2022-01-19 07:20] LABS: Basophils Percent Auto 0.3 % (0-2); Eosinophils Percent Auto 0.3 % (0-4); Hematocrit 31.9 % (37.0-47.0); Hemoglobin 10.4 g/dl (12.0-16.0); Imm Gran Abs Auto 0.05 X10*3/uL (0.00-0.03); Imm Gran Pct Auto 0.5 % (0.0-0.4); Lymphocytes Absolute Auto 0.8 X10*3/uL (1.2-4.9); Lymphocytes Percent Auto 7.7 % (20-40); Mean Corpuscular HGB Conc 32.6 g/dl (31.0-35.0); Mean Corpuscular Hemoglobin 29.1 pg (27.0-33.0); Mean Corpuscular Volume 89.4 fL (80.0-98.0); Monocytes Absolute Auto 0.5 X10*3/uL (0.1-1.2); Monocytes Percent Auto 4.3 % (2-11); Neutrophils Absolute Auto 9.1 x10*3/uL (2.0-8.3); Neutrophils Percent Auto 86.9 % (45-73); Platelet Count 191 X10*3/uL (160-400); Red Blood Count 3.57 X10*6/uL (4.20-5.50); Red Cell Distribution Width 12.6 % (11.0-16.0); White Blood Count 10.5 X10*3/uL (4.8-10.8)
--- NOTE | 2022-01-19 07:29 | PHA.MEDREC ---
Pharmacy Consult ? Medication Reconciliation Pharmacy has completed the medication reconciliation. There are no remarkable issues for provider's attention. Eunice Mcdonnell, DeisyD
--- NOTE | 2022-01-19 07:36 | ECG_ITS ---
Test Reason : PRE OP Blood Pressure : / mmHG Vent. Rate : 100 BPM Atrial Rate : 100 BPM P-R Int : 166 ms QRS Dur : 088 ms QT Int : 342 ms P-R-T Axes : 054 -04 031 degrees QTc Int : 441 ms Normal sinus rhythm Normal ECG When compared with ECG of 22-MAY-2007 12:13, Questionable change in QRS axis Referred By: Manuel Jacobs Electronically Signed By:Rolando Zee
[2022-01-19 07:59] LABS: Anion Gap 10 (12-20); Blood Urea Nitrogen 6 mg/dL (9-16); Calcium 7.8 mg/dL (8.4-10.2); Carbon Dioxide 25 mmol/L (22-29); Chloride 105 mmol/L (96-108); Creatinine Clr Calc Pharmacy 105.1; Estimated Glomerular Filt Rate > 60; Glucose Random 124 mg/dL (60-115); Potassium 3.5 mmol/L (3.3-5.1); Sodium 136 mmol/L (135-145)
--- NOTE | 2022-01-19 08:07 | P.CDIC_ITS ---
CDI Concurrent Query Documentation Clarification: PHYSICIAN'S DOCUMENTATION REQUEST Date of Query: 01/19/22 0807 Patient Name: Abby Whatley Admit Date: 01/19/22 Dear Doctor, A review of the medical record indicates additional documentation may be needed. Please review below and update the documentation accordingly. Clinical Indicators: Risk Factors/Clinical Indicators/Treatments WBC 13.5 Temperature 101.8 HR 117 LA 1.0 On Piperacillin for Diverticulitis Please clarify which, if any, of the following is the most likely etiology of th e above symptoms and treatment rendered: * Sepsis * Systemic manifestations of infection, with 2 or more SIRS criteria which include: - Fever > 100.4F or hypothermia < 96.8 F - Leukocytosis - WBC > 12,000 or leukopenia, WBC < 4,000 or > 10% bands - Tachycardia > 90 beats/minute - Tachypnea - RR > 20 breaths/minute or PaCO2 < 32mmHg (Source: Merck Manual 2013) * Indicate the known or suspected organism * Indicate the known or suspected underlying infection, such as UTI, pneumonia, or cellulitis * Indicate if a suspected bacterial infection of unknown source * Indicate if associated with an implanted device such as a F/C, PICC line, orthopedic hardware, etc. * Localized infection only, without systemic illness - indicate the site/source, such as UTI, pneumonia, etc. * Other (please specify) * Unable to determine Use of terms such as suspected, likely, concern for, or probable (associated with a specific diagnosis that is being evaluated, monitored, or treated as if it exists) are acceptable and can be coded in the inpatient setting, when documented at the time of discharge. Thank you, Roxann Villarreal RN Extension: [phone] Please use your independent medical judgment in providing your response. THIS QUERY IS PART OF THE PERMANENT MEDICAL RECORD Provider Response: Sepsis Other Diagnosis: Sepsis due to perforated appendicitis suspected.
--- NOTE | 2022-01-19 08:13 | P.CDIC_ITS ---
CDI Concurrent Query Documentation Clarification: PHYSICIAN'S DOCUMENTATION REQUEST Date of Query: 01/19/22 0814 Patient Name: Abby Whatley Admit Date: 01/19/22 Dear Doctor, A review of the medical record indicates additional documentation may be needed. Please review below and update the documentation accordingly. Risk Factors/Clinical Indicators/Treatments CT Abdomen: There is a ruptured viscus with free intraperitoneal air.? Per ED note: concern for peritonitis Per H&P: Diverticulitis Based on the above, could you clarify in the Progress Notes the appropriate diagnosis, if significant, that supports the above abnormalities and additional evaluation, monitoring, and/or treatment rendered: * Acute Diverticulitis with perforation and peritonitis * Acute Diverticulitis with perforation * Acute Diverticulits * Other (please specify) * Unable to determine Use of terms such as suspected, likely, concern for, or probable (associated with a specific diagnosis that is being evaluated, monitored, or treated as if it exists) are acceptable and can be coded in the inpatient setting, when documented at the time of discharge. Thank you, Roxann Villarreal RN Extension: [phone] Please use your independent medical judgment in providing your response. THIS QUERY IS PART OF THE PERMANENT MEDICAL RECORD Provider Response: Sepsis Other Diagnosis: Appendicitis with perforation, possible abscess suspected
[2022-01-19] MEDS: ondansetron HCL 4 MG/2 ML VIAL IVPUSH (09:06)
--- NOTE | 2022-01-19 09:39 | PC.NURSE ---
Pt resting in hospital bed. C/o LLQ abdominal pain and nausea. Medicated per PRN orders. IVFs continued this AM. Pt updated on plan of care. Family at bedside. Belongings and call gardner within reach.
--- NOTE | 2022-01-19 15:06 | MHC.CM.PN ---
Attempted to meet with patient in regards to discharge planning. Patient currently in OR. Will attempt to meet again. Continue to monitor for d/c needs.
--- NOTE | 2022-01-19 15:46 | P.CONAN_ITS ---
HPI - Anesthesia Eval Consult details Narrative: 41 Laproscopic appendectomy Allergy induced Asthma , GERD . No inhalers for years [facility] [place] Active Problems Active Problems: All Active Problems (Updated 01/19/22 @ 14:26 by Jorge Marrero MD) Acute appendicitis with appendiceal abscess (Acute) Blepharitis of eyelid of right eye (Acute) Conjunctivitis (Acute) Contact dermatitis (Acute) Chronic GERD (Acute) Overweight (BMI 25.0-29.9) (Acute) Encounter for general adult medical examination with abnormal findings (Acute) Alcoholism (Acute) Acute abdomen (Acute) Diverticulitis (Acute) Past Medical History Medical History (Updated 01/19/22 @ 14:26 by Jorge Marrero MD) Diverticulitis GERD (gastroesophageal reflux disease) Family History Family History Father HTN (hypertension) History of CVA (cerebrovascular accident) Mother No problems noted. Maternal Grandfather Myocardial infarction Paternal Grandfather Myocardial infarction Brother No problems noted. Sister No problems noted. Daughter No problems noted. Daughter No problems noted. Family history of problems with anesthesia: No Surgical History Surgical History No pertinent past surgical history History of Problems with Anesthesia: No Social History Social History Housing: House Patient Tobacco Use Status: Current everyday Tobacco user Tobacco use type: Cigarette Cigarettes Per Day: 6 Use of substances other than those prescribed or required for medical reasons: No Are you DNR?: No Advance Directives: No Patient : No Current occupational status: employed Meds Allergies Allergy/AdvReac Type Severity Reaction Status Date / Time No Known Allergies Allergy Verified 01/19/22 14:17 [No Known Allergies*] Active Medications: Current Medications Dextrose/Lactated Ringer's (D5lr) 1,000 mls @ 125 mls/hr IVCONT .Q8H KAVON Last Admin: 01/19/22 09:02 Dose: 125 mls/hr Documented by: Acetaminophen (Ofirmev) 1,000 mg in 100 mls @ 400 mls/hr IV Q6H KAVON Stop: 01/19/22 18:59 Last Infusion: 01/19/22 13:14 Dose: Infused Documented by: Piperacillin Sod/Tazobactam (Sod 3.375 gm/ Sodium Chloride) 50 mls @ 100 mls/hr IV Q6H KAVON Last Infusion: 01/19/22 11:38 Dose: Infused Documented by: Morphine Sulfate (Morphine Sulfate 4 Mg/Ml Cartridge) 4 mg IVPUSH Q2H PRN; Protocol PRN Reason: Pain, Severe (Pain Scale 7-10) Last Admin: 01/19/22 13:30 Dose: 4 mg Documented by: Ondansetron HCl (Ondansetron Hcl 4 Mg/2 Ml Vial) 4 mg IVPUSH QID PRN PRN Reason: Nausea Last Admin: 01/19/22 09:06 Dose: 4 mg Documented by: Pharmacy Consult (Consult Rx Perform Med Rec) 1 each MISCELLANE ONCE PRN PRN Reason: Consult order Zolpidem Tartrate (Zolpidem Tartrate 5 Mg Tablet) 5 mg PO BEDTIME PRN PRN Reason: Insomnia Exam Exam Date and Time: January 19, 2022 154 Height,Weight and Vital Signs: Height 5 ft 2 in Weight 68.039 kg Last Vital Signs Temp 98.4 F 01/19/22 14:12 Pulse 91 01/19/22 14:12 Resp 16 01/19/22 14:12 BP 146/96 H 01/19/22 14:12 Pulse Ox 94 01/19/22 14:12 Pertinent Lab Results Pertinent Lab Results: Laboratory Tests 01/18/22 01/18/22 01/18/22 22:00 22:00 22:43 WBC 13.5 H RBC 4.08 L Hgb 12.1 Hct 36.4 L MCV 89.2 MCH 29.7 MCHC 33.2 RDW 12.5 Plt Count 219 MPV 11.0 Immature Gran % (Auto) 0.4 Neut % (Auto) 90.1 H Lymph % (Auto) 6.5 L [place] % (Auto) 2.7 Eos % (Auto) 0.1 Baso % (Auto) 0.2 Lymph # (Auto) 0.9 L [place] # (Auto) 0.4 Eos # (Auto) 0.0 Baso # (Auto) 0.0 Abs Immat Gran (auto) 0.05 H Absolute Neuts (auto) 12.2 H Absolute Nucleated RBC 0.000 Nucleated RBC % (auto) 0.0 Smear Tech's Comments VERIFIED PT INR Sodium 134 L Potassium 3.7 Chloride 100 Carbon Dioxide 23 Anion Gap 15 BUN 9 Creatinine 0.65 Estim Creat Clear Calc 101.9 Estimated GFR > 60 Random Glucose 111 Lactic Acid Calcium 9.0 Lipase 9 Urine Color DK YELLOW Urine Appearance HAZY Urine pH 6.0 Ur Specific [place] >= 1.030 H Urine Protein 2+ H Urine Glucose (UA) NEG Urine Ketones >=80 Urine Blood TRACE Urine Nitrite NEG Ur Leukocyte Esterase NEG Urine RBC 10-14 H Urine WBC 0 Ur Squamous Epith Cells 3+ Urine Bacteria NONE Granular Casts 1-4 Urine Mucus 4+ Urine Test COVID-19 (JUANCHO) COVID-19 Domain Surgical Com Blood Type Antibody Screen 01/18/22 01/18/22 01/19/22 22:43 22:57 00:12 WBC RBC Hgb Hct MCV MCH MCHC RDW Plt Count MPV Immature Gran % (Auto) Neut % (Auto) Lymph % (Auto) [place] % (Auto) Eos % (Auto) Baso % (Auto) Lymph # (Auto) [place] # (Auto) Eos # (Auto) Baso # (Auto) Abs Immat Gran (auto) Absolute Neuts (auto) Absolute Nucleated RBC Nucleated RBC % (auto) Smear Tech's Comments PT INR Sodium Potassium Chloride Carbon Dioxide Anion Gap BUN Creatinine Estim Creat Clear Calc Estimated GFR Random Glucose Lactic Acid 1.0 Calcium Lipase Urine Color Urine Appearance Urine pH Ur Specific [place] Urine Protein Urine Glucose (UA) Urine Ketones Urine Blood Urine Nitrite Ur Leukocyte Esterase Urine RBC Urine WBC Ur Squamous Epith Cells Urine Bacteria Granular Casts Urine Mucus Urine Test NEGATIVE COVID-19 (JUANCHO) Negative COVID-19 Isai See Note Blood Type Antibody Screen 01/19/22 01/19/22 01/19/22 00:49 00:49 07:07 WBC 10.5 RBC 3.57 L Hgb 10.4 L Hct 31.9 L MCV 89.4 MCH 29.1 MCHC 32.6 RDW 12.6 Plt Count 191 MPV 11.0 Immature Gran % (Auto) 0.5 H Neut % (Auto) 86.9 H Lymph % (Auto) 7.7 L [place] % (Auto) 4.3 Eos % (Auto) 0.3 Baso % (Auto) 0.3 Lymph # (Auto) 0.8 L [place] # (Auto) 0.5 Eos # (Auto) 0.0 Baso # (Auto) 0.0 Abs Immat Gran (auto) 0.05 H Absolute Neuts (auto) 9.1 H Absolute Nucleated RBC 0.000 Nucleated RBC % (auto) 0.0 Smear Tech's Comments PT 15.7 H INR 1.4 H Sodium Potassium Chloride Carbon Dioxide Anion Gap BUN Creatinine Estim Creat Clear Calc Estimated GFR Random Glucose Lactic Acid Calcium Lipase Urine Color Urine Appearance Urine pH Ur Specific [place] Urine Protein Urine Glucose (UA) Urine Ketones Urine Blood Urine Nitrite Ur Leukocyte Esterase Urine RBC Urine WBC Ur Squamous Epith Cells Urine Bacteria Granular Casts Urine Mucus Urine Test COVID-19 ([facility]UANCHO) COVID-19 Domain Surgical Com Blood Type B Positive Antibody Screen NEGATIVE 01/19/22 07:07 WBC RBC Hgb Hct MCV MCH MCHC RDW Plt Count MPV Immature Gran % (Auto) Neut % (Auto) Lymph % (Auto) [place] % (Auto) Eos % (Auto) Baso % (Auto) Lymph # (Auto) [place] # (Auto) Eos # (Auto) Baso # (Auto) Abs Immat Gran (auto) Absolute Neuts (auto) Absolute Nucleated RBC Nucleated RBC % (auto) Smear Tech's Comments PT INR Sodium 136 Potassium 3.5 Chloride 105 Carbon Dioxide 25 Anion Gap 10 L BUN 6 L Creatinine 0.63 Estim Creat Clear Calc 105.1 Estimated GFR > 60 Random Glucose 124 H Lactic Acid Calcium 7.8 L D Lipase Urine Color Urine Appearance Urine pH Ur Specific [place] Urine Protein Urine Glucose (UA) Urine Ketones Urine Blood Urine Nitrite Ur Leukocyte Esterase Urine RBC Urine WBC Ur Squamous Epith Cells Urine Bacteria Granular Casts Urine Mucus Urine Test COVID-19 (JUANCHO) COVID-19 Domain Surgical Com Blood Type Antibody Screen Airway Mallampati Class: III TM Dist: >3cm Neck ROM: Full Loose/Missing/Broken Teeth: Yes Heart: rrr Lungs: bl breath sounds Assessment and Plan Assessment Anesthesia Assessment: Anesthesia Plan Discussed Final Anesthetic Review Family History of Problems with Anesthesia: No History of Problems with Anesthesia: No NPO: Yes ASA Class: II and Emergency Final Preanesthetic Review: Meds/Allgs Chart Reviewed, Consent Obtained/Reviewed and Anes Risks/Benef Reviewed Patient Risk: High Procedure Risk: High Anesthetic Plan Anesthetic Plan: GA Disposition: Inp. Admit - Sandy Bed
--- NOTE | 2022-01-19 18:21 | P.OP_ITS ---
Operative Note Operative Note Date of Service: 01/19/22 Narrative: Preoperative diagnosis:Acute perforated appendicitis with abscess Postoperative diagnosis: Perforated sigmoid diverticulitis with abscess Procedure: Laparoscopic appendectomy, Zafar's Procedure, Drainage of abdominal abscess Surgeon: Jorge Marrero MD Bobbin Inspector: Patrick Gale MD Anesthesia: General ET Indications for procedure: 41 year old female patient with a 4 day history of abdominal pain begining in the lower abdomen and increasing in severity, becoming more diffuse yesterday evening. She was previously diagnosed with diverticulitis at an outside hospital and started on oral antibiotics. On p resentation she was found to have an elevated WBC and with CT noting free air. A repeat CT today raised the suspicious of a perforated appendicitis. She presents for a laparoscopic or possible open appendectomy Operative findings: Large abdominal abscess with multiple interloop fluid collections and peritonitis. Normal appearing appendix. Evidence of a perforated sigmoid diverticulitis with leak of fecal material. Specimen: Appendix, sigmoid colon, peritoneal wound cultures Estimated blood loss: 25 mls Complications: none Procedure details:The patient was brought to the OR and placed in a supine position. After administering general anesthesia the patient's abdomen was prepped with ChloraPrep and draped in a sterile fashion. A surgical time-out was called and the consent confirmed. Patient received preoperative antibiotics and Venodyne boots were in place. Local anesthesia consisting of 0.5% Sensorcaine was infiltrated in a periumbilical location. A 5 mm incision was then made below the umbilicus. A Veress needle was then inserted while elevating the abdominal cavity with towel clips. After a positive drop test the abdomen was insufflated to a pressure of 15 mmHg. A 5 mm trocar was then inserted under direct vision in the abdomen explored. A 2nd 5 mm trocars placed in the lower midline. A 3rd 12 mm trocar was then placed in the left lower quadrant. The patient was then placed in a Trendelenburg position and rotated to the left. The cecum was identified with a significant amount of fluid, abscess, inflammatory peel and evidence of peritonitis. Multiple loops of small bowel were adherent to the cecum. These were freed with gentle dissection. The cecum was then rotated medially and the appendix identified along the right sidewall. This was mobilized using LigaSure. The mesoappendix was divided using the LigaSure. The appendix was then stapled using an Endo-MICHELA 30 mm purple reload. The appendix appeared normal without evidence of perforation or inflammation. The remainder abdomen was then explored using the endoscope. Multiple fluid collections were drained between loops of bowel. Adherent loops of bowel were freed throughout the abd omen. The descending colon sigmoid colon were then examined carefully. Increased inflammation was noted in a small segment of sigmoid colon adjacent to the uterus. These were freed from its adherence and a small perforation identified consistent with perforated sigmoid diverticulitis. Fecal material was noted adjacent to these loops of bowel. Decision was made to convert to an open procedure. A lower midline incision was then made with the scalpel carried down through subcutaneous tissue through linea alba into the peritoneum. A Bookwalter retractor was then placed in the abdomen explored. The sigmoid colon was examined further and obvious perforation identified. There was a segment of markedly inflamed sigmoid colon adjacent to this perforation. The decision was made to proceed to a Zana's procedure. The proximal sigmoid colon was divided using a a MICHELA stapler by Dr. Gale. I then used the LigaSure was then used to dissect the mesentery below the sigmoid colon to include the area of perforation. This was continued down to a more normal appearing distal sigmoid colon. A 2nd firing of the MICHELA stapler was then used to divide this loop of bowel again by Dr. Gale.. This was sent to pathology for further examination. A circular incision was then made in the left lower quadrant in preparation for colostomy. This was carried out through subcutaneous tissue down to fascia. A cruciate incision was then made in fascia in the peritoneum entered. The loop of proximal sigmoid colon was then mobilized along the white line of Toldt and some of the mesentery divided to improve flexibility. This was then brought up through the colostomy site using Reji retractor. The colostomy was then opened using electrocautery and matured using interrupted 2 0 Polysorb sutures. The abdomen was then thoroughly irrigated with saline solution a total of 2 L of saline solution was then used and suctioned clean. Fascia was then closed at the midline incision using a running 1 Maxon suture. Subcutaneous tissue and dermis were then reapproximated using interrupted 3-0 Polysorb sutures. Skin was then closed using skin nazia. Sterile dressings and ostomy appliance were then applied. The patient tolerated the procedure well. Sponge, instrument, and needle counts reported as correct. The patient was transferred to PACU in stable condition.
[2022-01-20] MEDS: Dextrose 5 % and Lactated Ring 1,000 ML 125 ML IVCONT ×3 (03:19→23:43)
[2022-01-20 04:00] VITALS: BP 155/98; PULSE 82; RESP 17; TEMP 36.3; O2SAT 95
[2022-01-20] MEDS: oxyCODONE HCl Immed Release 5 MG TABLET PO ×4 (04:42→21:01)
[2022-01-20] MEDS: Omeprazole 20 MG CAPSULE.DR PO (04:43)
[2022-01-20] MEDS: Piperacillin Sodium/Tazobactam 3.375 GM in 0.9 % Sodium Chloride 50 ML IV ×4 (04:43→23:39)
--- NOTE | 2022-01-20 06:40 | PC.NURSE ---
Midline incision note to be leaking and dripping serosang blood and saturated the dressing, changed it with sterile gauze dressing and no saturation noted after, also noted some bloody discharge into the colostomy in small amount, VS remain stable and pt denies any lightheadedness, abd is tender but not distended.
[2022-01-20 06:54] LABS: Anion Gap 11 (12-20); Blood Urea Nitrogen 5 mg/dL (9-16); Carbon Dioxide 28 mmol/L (22-29); Chloride 103 mmol/L (96-108); Creatinine Clr Calc Pharmacy 103.4; Estimated Glomerular Filt Rate > 60; Glucose Random 161 mg/dL (60-115); Potassium 3.8 mmol/L (3.3-5.1); Sodium 138 mmol/L (135-145)
[2022-01-20 07:15] LABS: Calcium 8.4 mg/dL (8.4-10.2)
--- NOTE | 2022-01-20 07:56 | PM.PNGS ---
Subjective Subjective Date of Service: 01/20/22 Interval history: Feels sore this morning- states she wants to try to avoid narcotics. Denies nausea, tolerating liquids. No flatus. Ambulating to bathroom without difficulty. Wondering about timeline and restrictions from surgery. Physical Exam Vital Signs: Vital Signs: Last Vital Signs Temp 97.3 F 01/20/22 04:00 Pulse 82 01/20/22 04:00 Resp 17 01/20/22 04:00 BP 155/98 H 01/20/22 04:00 Pulse Ox 95 01/20/22 04:00 BMI result Body Mass Index 27.3 Const: General: no acute distress and alert Orientation/consciousness: patient oriented x3 Resp: Effort & Inspection: normal respiratory effort GI: Other: ostomy beefy red, no output in appliance Inspection: No distended and Yes incision (dressing c/d/i) Palpation (GI): Soft to palpation, Tenderness to palpation present (GI) (incisional), no guarding and not rigid Skin: General skin exam: no rashes or lesions noted Neuro: General: patient oriented x3 Extrem: General: Yes no clubbing, cyanosis or edema Objective Data Active Medications Albuterol Sulfate (Albuterol Sulfate (0.083%) 2.5 Mg/3 Ml Vial.Neb) 2.5 mg INHALE ONCE PRN PRN Reason: Wheezing Fentanyl (Fentanyl Citrate/Pf 100 Mcg/2 Ml Vial) 25 mcg IVPUSH Q5M PRN; Protocol PRN Reason: Pain, Moderate (Pain Scale 4-6 Hydromorphone HCl (Hydromorphone Hcl 0.5 Mg/0.5 Ml Syringe) 0.25 mg IVPUSH Q5M PRN; Protocol PRN Reason: Pain, Severe (Pain Scale 7-10) Dextrose/Lactated Ringer's (D5lr) 1,000 mls @ 125 mls/hr IVCONT .Q8H [facility] Last Admin: 01/20/22 03:19 Dose: 125 mls/hr Documented by: DEMETRA Acetaminophen (Ofirmev) 1,000 mg in 100 mls @ 400 mls/hr IV Q6H [facility] Stop: 01/20/22 18:59 Last Infusion: 01/20/22 06:46 Dose: 0 mls/hr Documented by: DEMETRA Piperacillin Sod/Tazobactam (Sod 3.375 gm/ Sodium Chloride) 50 mls @ 100 mls/hr IV Q6H [facility] Last Infusion: 01/20/22 05:21 Dose: 0 mls/hr Documented by: DEMETRA Morphine Sulfate (Morphine Sulfate 4 Mg/Ml Cartridge) 4 mg IVPUSH Q2H PRN; Protocol PRN Reason: Pain, Severe (Pain Scale 7-10) Last Admin: 01/19/22 23:21 Dose: 4 mg Documented by: DEMETRA Omeprazole (Omeprazole 20 Mg Capsule.Dr) 20 mg PO DAILY@0630 [facility] Last Admin: 01/20/22 04:43 Dose: 20 mg Documented by: DEMETRA Ondansetron HCl (Ondansetron Hcl 4 Mg/2 Ml Vial) 4 mg IVPUSH QID PRN PRN Reason: Nausea Last Admin: 01/19/22 09:06 Dose: 4 mg Documented by: LISA Oxycodone HCl (Oxycodone Hcl Immed Release 5 Mg Tablet) 5 mg PO Q4H PRN PRN Reason: Pain, Moderate (Pain Scale 4-6 Last Admin: 01/20/22 04:42 Dose: 5 mg Documented by: DEMETRA Pharmacy Consult (Consult Rx Perform Med Rec) 1 each MISCELLANE ONCE PRN PRN Reason: Consult order Zolpidem Tartrate (Zolpidem Tartrate 5 Mg Tablet) 5 mg PO BEDTIME PRN PRN Reason: Insomnia Labs CBC & Chem 7: 01/19/22 07:07 01/20/22 06:07 Labs: Laboratory Results - last 24 hr 01/19/22 01/20/22 07:07 06:07 Anion Gap 10 L 11 L Estim Creat Clear Calc 105.1 103.4 Estimated GFR > 60 > 60 Random Glucose 124 H 161 H Calcium 7.8 L D 8.4 D Microbiology Microbiology Results: Microbiology 01/18/22 22:57 Blood Culture - Preliminary Blood - Venous No growth after 24 hours. 01/18/22 22:57 Blood Culture - Preliminary Blood - Venous No growth after 24 hours. Procedures Date of Service Date of Service: 01/20/22 Progress Note: A&P Assessment and plan (1) Diverticulitis of intestine with perforation and abscess: Status: Acute (2) Status post Ileana's procedure: Status: Acute Plan 41 year old female admitted with acute abdomen with concern for possible perforated appendicitis versus diverticulitis. POD #1 s/p ileana procedure, drainage of intraabdominal abscess, laparoscopic appendectomy. Found to have large abdominal abscess with multiple interloop fluid collections and peritonitis, normal appearing appendix, evidence of a perforated sigmoid diverticulitis with leak of fecal material.? Doing fairly well post op, comfortable and tolerating liquids. VSS. Abd exam benign with appropriate post op tenderness. Ostomy viable appearing. Cont IV zosyn for perforated diverticulitis with abscess. Cont clear liquids for now, gentle IVF. Await return GI function- may develop ileus given peritonitis. Begin colostomy education. Encouraged OOB/ambulation and IS use. Fall Risk Details Current Medications: Current Medications Albuterol Sulfate (Albuterol Sulfate (0.083%) 2.5 Mg/3 Ml Vial.Neb) 2.5 mg INHALE ONCE PRN PRN Reason: Wheezing Fentanyl (Fentanyl Citrate/Pf 100 Mcg/2 Ml Vial) 25 mcg IVPUSH Q5M PRN; Protocol PRN Reason: Pain, Moderate (Pain Scale 4-6 Hydromorphone HCl (Hydromorphone Hcl 0.5 Mg/0.5 Ml Syringe) 0.25 mg IVPUSH Q5M PRN; Protocol PRN Reason: Pain, Severe (Pain Scale 7-10) Dextrose/Lactated Ringer's (D5lr) 1,000 mls @ 125 mls/hr IVCONT .Q8H [facility] Last Admin: 01/20/22 03:19 Dose: 125 mls/hr Documented by: Acetaminophen (Ofirmev) 1,000 mg in 100 mls @ 400 mls/hr IV Q6H [facility] Stop: 01/20/22 18:59 Last Infusion: 01/20/22 06:46 Dose: Infused Documented by: Piperacillin Sod/Tazobactam (Sod 3.375 gm/ Sodium Chloride) 50 mls @ 100 mls/hr IV Q6H [facility] Last Infusion: 01/20/22 05:21 Dose: Infused Documented by: Morphine Sulfate (Morphine Sulfate 4 Mg/Ml Cartridge) 4 mg IVPUSH Q2H PRN; Protocol PRN Reason: Pain, Severe (Pain Scale 7-10) Last Admin: 01/19/22 23:21 Dose: 4 mg Documented by: Omeprazole (Omeprazole 20 Mg Capsule.Dr) 20 mg PO DAILY@0630 [facility] Last Admin: 01/20/22 04:43 Dose: 20 mg Documented by: Ondansetron HCl (Ondansetron Hcl 4 Mg/2 Ml Vial) 4 mg IVPUSH QID PRN PRN Reason: Nausea Last Admin: 01/19/22 09:06 Dose: 4 mg Documented by: Oxycodone HCl (Oxycodone Hcl Immed Release 5 Mg Tablet) 5 mg PO Q4H PRN PRN Reason: Pain, Moderate (Pain Scale 4-6 Last Admin: 01/20/22 04:42 Dose: 5 mg Documented by: Pharmacy Consult (Consult Rx Perform Med Rec) 1 each MISCELLANE ONCE PRN PRN Reason: Consult order Zolpidem Tartrate (Zolpidem Tartrate 5 Mg Tablet) 5 mg PO BEDTIME PRN PRN Reason: Insomnia Time Spent With Patient Time: Total time spent is greater than 50% in coordination of care (as documented) at patient's floor/unit and/or counseling patient: Time with patient: 15 - 24 minutes Quality Stroke Does the patient have a stroke diagnosis?: No VTE Prior VTE?: No VTE Risk Level:: Surgical - moderate VTE Device Contraindication: N/A - Device Ordered VTE Drug Contraindication: Treatment Not Indicated
[2022-01-20 08:00] VITALS: BP 149/91; PULSE 82; RESP 18; TEMP 36.7; O2SAT 94
--- NOTE | 2022-01-20 09:54 | MHC.CM.PN ---
PATIENT IS FULLY INDEPENDENT WITH ALL ADLS. NO DME OR VNA SERVICES. SHE HAS BEEN VACCINATED X 3WITH MODERNA SERIES FOR COVID-19 SHE IS UNABLE TO RECALL THE DATES. SHE REPORTS NOT WANTING ANY SERVICES AT TIME OF DISCHARGE. FRIEND (IN ROOM) WILL PROVIDE TRANSPORT HOME. CASE MANAGEMENT FOLLOWING
[2022-01-20] MEDS: Morphine Sulfate 4 MG/ML CARTRIDGE IVPUSH (11:55)
[2022-01-20 11:59] VITALS: BP 157/95; PULSE 85; RESP 18; TEMP 37; O2SAT 92
--- NOTE | 2022-01-20 12:28 | HO.POSTANES ---
Post Anesthesia Evaluation Post Anesthesia Evaluation Vital Signs: Vital Signs Temp Pulse Resp BP Pulse Ox 01/20/22 11:59 98.6 F 85 18 157/95 H 92 01/20/22 08:00 98.0 F 82 18 149/91 H 94 01/20/22 04:00 97.3 F 82 17 155/98 H 95 Anesthesia: General Endotracheal-GETA Mental Status: Awake Pain Control: Satisfactory (some mild pain) Nausea/Vomiting: None Hydration: Adequate Anesthesia-Related Issues: No Anes. Related Issues
[2022-01-20 15:33] VITALS: BP 166/90; PULSE 78; RESP 18; TEMP 36.8; O2SAT 92
[2022-01-20 18:21] VITALS: O2SAT 98
[2022-01-20 20:00] VITALS: BP 149/72; PULSE 82; RESP 18; TEMP 37.1; O2SAT 99
[2022-01-20] MEDS: Zolpidem Tartrate 5 MG TABLET PO (21:01)
[2022-01-21] VITALS: BP 160/80; PULSE 77; RESP 14; TEMP 36.6; O2SAT 95
[2022-01-21] MEDS: oxyCODONE HCl Immed Release 5 MG TABLET PO (02:19)
[2022-01-21 04:00] VITALS: BP 154/88; PULSE 76; RESP 14; TEMP 36.6; O2SAT 93
[2022-01-21] MEDS: Piperacillin Sodium/Tazobactam 3.375 GM in 0.9 % Sodium Chloride 50 ML IV ×4 (04:19→22:38)
[2022-01-21] MEDS: Omeprazole 20 MG CAPSULE.DR PO (06:07)
[2022-01-21] MEDS: Morphine Sulfate 4 MG/ML CARTRIDGE IVPUSH ×3 (06:09→19:49)
[2022-01-21 07:03] VITALS: BP 133/85; PULSE 90; RESP 18; TEMP 36.1; O2SAT 94
--- NOTE | 2022-01-21 07:50 | P.PNGS_ITS ---
Subjective Subjective Date of Service: 01/21/22 <Liliya Ortiz PA-C - Last Filed: 01/21/22 07:55> 01/21/22 <Jorge Marrero MD - Last Filed: 01/21/22 08:24> Interval history: Very uncomfortable overnight and this morning- c/o intermittent crampy RLQ pain, severe. Unrelieved by medication. No flatus or ostomy output. <Liilya Ortiz PA-C - Last Filed: 01/21/22 07:55> Physical Exam Vital Signs: Vital Signs: Last Vital Signs Temp 97 F 01/21/22 07:03 Pulse 90 01/21/22 07:03 Resp 18 01/21/22 07:03 BP 133/85 01/21/22 07:03 Pulse Ox 94 01/21/22 07:03 BMI result Body Mass Index 27.3 <Liliya Ortiz PA-C - Last Filed: 01/21/22 07:55> Const: General: alert and other (in pain, uncomfortable) <Liliya Ortiz PA-C - Last Filed: 01/21/22 07:55> Orientation/consciousness: patient oriented x3 <Liliya Ortiz PA-C - Last Filed: 01/21/22 07:55> Eyes: Sclerae: sclerae normal <Liliya Ortiz PA-C - Last Filed: 01/21/22 07:55> Resp: Effort & Inspection: normal respiratory effort <Liliya Ortiz PA-C - Last Filed: 01/21/22 07:55> GI: Other: ostomy pink, no flatus or output <Liliya Ortiz PA-C - Last Filed: 01/21/22 07:55> Inspection: Yes distended and Yes incision (clean) <KOLTON Alcala Last Filed: 01/21/22 07:55> Palpation (GI): Soft to palpation, Tenderness to palpation present (GI) (diffuse, RLQ>L side), no guarding and not rigid <KOLTON Alcala Last Filed: 01/21/22 07:55> Percussion: Yes tympanic to percussion <KOLTON Alcala Last Filed: 01/21/22 07:55> Auscultation: normal bowel sounds <KOLTON Alcala Last Filed: 01/21/22 07:55> Skin: General skin exam: no rashes or lesions noted <KOLTON Alcala Last Filed: 01/21/22 07:55> Neuro: General: patient oriented x3 <KOLTON Alcala Last Filed: 01/21/22 07:55> Extrem: General: Yes no clubbing, cyanosis or edema <KOLTON Alcala Last Filed: 01/21/22 07:55> Objective Data Active Medications Dextrose/Lactated Ringer's (D5lr) 1,000 mls @ 80 mls/hr IVCONT .[id number] [facility] Last Admin: 01/20/22 23:43 Dose: 125 mls/hr Documented by: LIANET Piperacillin Sod/Tazobactam (Sod 3.375 gm/ Sodium Chloride) 50 mls @ 100 mls/hr IV Q6H [facility] Last Infusion: 01/21/22 05:12 Dose: 0 mls/hr Documented by: LIANET Morphine Sulfate (Morphine Sulfate 4 Mg/Ml Cartridge) 4 mg IVPUSH Q2H PRN; Protocol PRN Reason: Pain, Severe (Pain Scale 7-10) Last Admin: 01/21/22 06:09 Dose: 4 mg Documented by: LIANET Omeprazole (Omeprazole 20 Mg Capsule.) 20 mg PO DAILY@0630 [facility] Last Admin: 01/21/22 06:07 Dose: 20 mg Documented by: LIANET Ondansetron HCl (Ondansetron Hcl 4 Mg/2 Ml Vial) 4 mg IVPUSH QID PRN PRN Reason: Nausea Last Admin: 01/19/22 09:06 Dose: 4 mg Documented by: LISA Oxycodone HCl (Oxycodone Hcl Immed Release 5 Mg Tablet) 5 mg PO Q4H PRN PRN Reason: Pain, Moderate (Pain Scale 4-6 Last Admin: 01/21/22 02:19 Dose: 5 mg Documented by: LIANET Pharmacy Consult (Consult Rx Perform Med Rec) 1 each MISCELLANE ONCE PRN PRN Reason: Consult order Zolpidem Tartrate (Zolpidem Tartrate 5 Mg Tablet) 5 mg PO BEDTIME PRN PRN Reason: Insomnia Last Admin: 01/20/22 21:01 Dose: 5 mg Documented by: LIANET <Liliya Ortiz PA-C - Last Filed: 01/21/22 07:55> Labs CBC & Chem 7: : 01/19/22 07:07 01/20/22 06:07 <Liliya Ortiz PA-C - Last Filed: 01/21/22 07:55> Microbiology Microbiology Results: Microbiology 01/18/22 22:57 Blood Culture - Preliminary Blood - Venous No growth after 48 hours. 01/18/22 22:57 Blood Culture - Preliminary Blood - Venous No growth after 48 hours. 01/19/22 Unknown Gram Stain - Final Peritoneal Fluid Routine Culture - Preliminary Culture in progress. <Liliya Ortiz PA-C - Last Filed: 01/21/22 07:55> Procedures Date of Service Date of Service: 01/21/22 <Liliya Ortiz PA-C - Last Filed: 01/21/22 07:55> Progress Note: A&P Assessment and plan (1) Status post Ileana's procedure: Status: Acute <Liliya Ortiz PA-C - Last Filed: 01/21/22 07:55> (2) Diverticulitis of intestine with perforation and abscess: Status: Acute <Liliya Ortiz PA-C - Last Filed: 01/21/22 07:55> Plan 41 year old female admitted with acute abdomen with concern for possible perforated appendicitis versus diverticulitis. POD #2 s/p ileana procedure, drainage of intraabdominal abscess, laparoscopic appendectomy. Found to have large abdominal abscess with multiple interloop fluid collections and peritonitis, normal appearing appendix, evidence of a perforated sigmoid diverticulitis with leak of fecal material. Having difficulty with pain this morning. Concern for recurrent abscess. Will obtain CT abd/pelvis with contrast. NPO. Cont IV, IV zosyn. Further plan dependent on results. Await return of GI fxn. <Liliya Ortiz PA-C - Last Filed: 01/21/22 07:55> 41 year old female admitted with acute abdomen with concern for possible perforated appendicitis versus diverticulitis. POD #2 s/p ileana procedure, drainage of intraabdominal abscess, laparoscopic appendectomy. Found to have large abdominal abscess with multiple interloop fluid collections and peritonitis, normal appearing appendix, evidence of a perforated sigmoid diverticulitis with leak of fecal material. Having difficulty with pain this morning. Concern for recurrent abscess. Will obtain CT abd/pelvis with contrast. NPO. Cont IV, IV zosyn. Further plan dependent on results. Await return of GI fxn. Patient looked great last night but this morning is reporting increased abdominal pain in the right lower quadrant. No flatus or BM yet. Afebrile, normal HR and BP. Wounds are clean and intact. No erythema. Agree with above: major concern is for a recurrent abscess after H[place]hey 3-[address] abdomen and pelvis requested. Patient expressed understanding and agrees with the plan. <Jorge Marrero MD - Last Filed: 01/21/22 08:24> Fall Risk Details Current Medications: Current Medications Dextrose/Lactated Ringer's (D5lr) 1,000 mls @ 80 mls/hr IVCONT .[id number] [facility] Last Admin: 01/20/22 23:43 Dose: 125 mls/hr Documented by: Piperacillin Sod/Tazobactam (Sod 3.375 gm/ Sodium Chloride) 50 mls @ 100 mls/hr IV Q6H [facility] Last Infusion: 01/21/22 05:12 Dose: Infused Documented by: Morphine Sulfate (Morphine Sulfate 4 Mg/Ml Cartridge) 4 mg IVPUSH Q2H PRN; Protocol PRN Reason: Pain, Severe (Pain Scale 7-10) Last Admin: 01/21/22 06:09 Dose: 4 mg Documented by: Omeprazole (Omeprazole 20 Mg Zayra.) 20 mg PO DAILY@0630 [facility] Last Admin: 01/21/22 06:07 Dose: 20 mg Documented by: Ondansetron HCl (Ondansetron Hcl 4 Mg/2 Ml Vial) 4 mg IVPUSH QID PRN PRN Reason: Nausea Last Admin: 01/19/22 09:06 Dose: 4 mg Documented by: Oxycodone HCl (Oxycodone Hcl Immed Release 5 Mg Tablet) 5 mg PO Q4H PRN PRN Reason: Pain, Moderate (Pain Scale 4-6 Last Admin: 01/21/22 02:19 Dose: 5 mg Documented by: Pharmacy Consult (Consult Rx Perform Med Rec) 1 each MISCELLANE ONCE PRN PRN Reason: Consult order Zolpidem Tartrate (Zolpidem Tartrate 5 Mg Tablet) 5 mg PO BEDTIME PRN PRN Reason: Insomnia Last Admin: 01/20/22 21:01 Dose: 5 mg Documented by: <Liliya Ortiz PA-C - Last Filed: 01/21/22 07:55> Time Spent With Patient Time: Total time spent is greater than 50% in coordination of care (as documented) at patient's floor/unit and/or counseling patient: <Liliya Ortiz PA-C - Last Filed: 01/21/22 07:55> Time with patient: 15 - 24 minutes <Liliya Ortiz PA-C - Last Filed: 01/21/22 07:55> Quality Stroke Does the patient have a stroke diagnosis?: No <Liliya Ortiz PA-C - Last Filed: 01/21/22 07:55> VTE Prior VTE?: No <Liliya Ortiz PA-C - Last Filed: 01/21/22 07:55> VTE Risk Level:: Surgical - moderate <KOLTON Alcala Last Filed: 01/21/22 07:55> VTE Device Contraindication: N/A - Device Ordered <Liliya Ortiz PA-C - Last Filed: 01/21/22 07:55> VTE Drug Contraindication: Treatment Not Indicated <Liliya Ortiz PA-C - Last Filed: 01/21/22 07:55>
[2022-01-21] MEDS: Dextrose 5 % and Lactated Ring 1,000 ML 125 ML IVCONT ×2 (08:59→20:40)
[2022-01-21 11:09] VITALS: BP 170/90; PULSE 79; RESP 19; TEMP 36.1; O2SAT 96
--- NOTE | 2022-01-21 14:12 | MHC.CM.PN ---
Addendum entered by Renetta Whitney 01/21/22 16:16: DISCHARGE PLn vna for nrusing new ostomy teaching , post op assessment and medication reconcilation iniated to [facility] jad carmichael and shelly gusmana )PATIENT HAS BLUE CROSS PPO ) Original Note: NURSE SENIOR ADMINISTRATOR SUPPORT NOTE ELECTRONIC MEDICAL RECORD REVIEWED ALONG WITH CASE DISCSUSSED WITH STAFF NURSE. PER DOCUMENTATION (S/./P HARTMANS PROCEDURE, DRAINAGE OF INTRABSOMINAL ABSCESS, LAPSAROSCOPIC APPENDECTOMY , FOUND TO HAVE LARGE ABD ABSCESS WITH ,ULTIPKLE LOOP FLUIDS COLLECTIONS NAD PERTITONITIS PEROFRATYED SIGMOID DIVERTICULTIS AND LEAKING OF FECAL MATERIAL). PLAN PRESENLTY NPO IV FLUIDS , IV ANALGEICS AND IV ABX PATIENT WILL NEED VNA AT DISCHARGE AND AWAIT RESULTS OF CULTURES CARE MABER TO CONTINUE TO FOLLOW
[2022-01-21] MEDS: Diatrizoate Meglumine, Sodium 120 ML SOLUTION PO (14:23)
[2022-01-21] MEDS: iohexoL 350 MG/ML 100 ML INFUS..BTL IV (14:24)
[2022-01-21 15:30] VITALS: BP 151/92; PULSE 80; RESP 18; TEMP 37.3; O2SAT 95
[2022-01-21 19:34] VITALS: BP 166/95; PULSE 72; RESP 18; TEMP 36.6; O2SAT 96
[2022-01-22] VITALS (7 sets, daily range): BP systolic 140–172; BP diastolic 81–95; PULSE 63–100; RESP 14–18; TEMP 36.1–37.1; O2SAT 95–99
[2022-01-22] MEDS: Piperacillin Sodium/Tazobactam 3.375 GM in 0.9 % Sodium Chloride 50 ML IV ×4 (04:30→22:13)
[2022-01-22] MEDS: Dextrose 5 % and Lactated Ring 1,000 ML 125 ML IVCONT ×2 (04:43→14:58)
[2022-01-22] MEDS: Omeprazole 20 MG CAPSULE.DR PO (05:21)
[2022-01-22 05:31] LABS: MANUAL DIFF FLAG NO
[2022-01-22 05:47] LABS: Basophils Percent Auto 0.4 % (0-2); Eosinophils Absolute Auto 0.2 X10*3/uL (0.0-0.4); Eosinophils Percent Auto 2.1 % (0-4); Hematocrit 32.9 % (37.0-47.0); Hemoglobin 10.8 g/dl (12.0-16.0); Imm Gran Abs Auto 0.06 X10*3/uL (0.00-0.03); Imm Gran Pct Auto 0.7 % (0.0-0.4); Lymphocytes Absolute Auto 1.4 X10*3/uL (1.2-4.9); Lymphocytes Percent Auto 16.9 % (20-40); Mean Corpuscular HGB Conc 32.8 g/dl (31.0-35.0); Mean Corpuscular Hemoglobin 29.1 pg (27.0-33.0); Mean Corpuscular Volume 88.7 fL (80.0-98.0); Mean Platelet Volume 10.4 fL (9.4-12.3); Monocytes Absolute Auto 0.7 X10*3/uL (0.1-1.2); Neutrophils Absolute Auto 6.1 x10*3/uL (2.0-8.3); Neutrophils Percent Auto 71.9 % (45-73); Platelet Count 296 X10*3/uL (160-400); Red Blood Count 3.71 X10*6/uL (4.20-5.50); Red Cell Distribution Width 12.4 % (11.0-16.0); White Blood Count 8.5 X10*3/uL (4.8-10.8)
[2022-01-22 06:01] LABS: Anion Gap 11 (12-20); Blood Urea Nitrogen 4 mg/dL (9-16); Calcium 8.6 mg/dL (8.4-10.2); Carbon Dioxide 31 mmol/L (22-29); Chloride 101 mmol/L (96-108); Creatinine Clr Calc Pharmacy 103.4; Estimated Glomerular Filt Rate > 60; Glucose Fasting 110 mg/dL (60-99); Potassium 3.5 mmol/L (3.3-5.1); Sodium 139 mmol/L (135-145)
--- NOTE | 2022-01-22 10:56 | P.PNGS_ITS ---
Subjective Subjective Date of Service: 01/22/22 Interval history: feels better today although still sore had episodes of SOB - says she uses Proair at home for this stoma has been functioning has been ambulating says she has not had oral intake because of repeat CT Physical Exam Vital Signs: Vital Signs: Last Vital Signs Temp 98.8 F 01/22/22 07:47 Pulse 63 01/22/22 07:47 Resp 18 01/22/22 07:47 BP 172/95 H 01/22/22 07:47 Pulse Ox 96 01/22/22 07:47 BMI result Body Mass Index 27.3 Const: General: comfortable and no acute distress Resp: Effort & Inspection: normal respiratory effort Cardio: Rate: regular rate GI: Other: soft, colostomy functioning well, viable, incision clean, not infected Objective Data Active Medications Albuterol Sulfate (Albuterol Sulfate 90 Mcg 8 Gm Inhaler) 2 puff INHALE Q6H PRN PRN Reason: Shortness of Breath Dextrose/Lactated Ringer's (D5lr) 1,000 mls @ 80 mls/hr IVCONT .[id number] [facility] Last Admin: 01/22/22 04:43 Dose: 125 mls/hr Documented by: DEREK Piperacillin Sod/Tazobactam (Sod 3.375 gm/ Sodium Chloride) 50 mls @ 100 mls/hr IV Q6H [facility] Last Infusion: 01/22/22 05:17 Dose: 0 mls/hr Documented by: DEREK Acetaminophen (Ofirmev) 1,000 mg in 100 mls @ 400 mls/hr IV Q6H [facility] Last Infusion: 01/22/22 09:36 Dose: 0 mls/hr Documented by: SELENE Morphine Sulfate (Morphine Sulfate 4 Mg/Ml Cartridge) 4 mg IVPUSH Q2H PRN; Protocol PRN Reason: Pain, Severe (Pain Scale 7-10) Last Admin: 01/21/22 19:49 Dose: 4 mg Documented by: DEREK Omeprazole (Omeprazole 20 Mg Capsule.) 20 mg PO DAILY@0630 [facility] Last Admin: 01/22/22 05:21 Dose: 20 mg Documented by: DEREK Ondansetron HCl (Ondansetron Hcl 4 Mg/2 Ml Vial) 4 mg IVPUSH QID PRN PRN Reason: Nausea Last Admin: 01/19/22 09:06 Dose: 4 mg Documented by: LISA Oxycodone HCl (Oxycodone Hcl Immed Release 5 Mg Tablet) 5 mg PO Q4H PRN PRN Reason: Pain, Moderate (Pain Scale 4-6 Last Admin: 01/21/22 02:19 Dose: 5 mg Documented by: LIANET Pharmacy Consult (Consult Rx Perform Med Rec) 1 each MISCELLANE ONCE PRN PRN Reason: Consult order Zolpidem Tartrate (Zolpidem Tartrate 5 Mg Tablet) 5 mg PO BEDTIME PRN PRN Reason: Insomnia Last Admin: 01/20/22 21:01 Dose: 5 mg Documented by: LIANET Labs CBC & Chem 7: 01/22/22 05:18 01/22/22 05:18 Labs: Laboratory Results - last 24 hr 01/22/22 01/22/22 05:18 05:18 MCV 88.7 MCH 29.1 MCHC 32.8 RDW 12.4 Plt Count 296 D MPV 10.4 Immature Gran % (Auto) 0.7 H Neut % (Auto) 71.9 Lymph % (Auto) 16.[address] [place] % (Auto) 8.0 Eos % (Auto) 2.1 Baso % (Auto) 0.4 Lymph # (Auto) 1.4 [place] # (Auto) 0.7 Eos # (Auto) 0.2 Baso # (Auto) 0.0 Abs Immat Gran (auto) 0.06 H Absolute Neuts (auto) 6.1 Absolute Nucleated RBC 0.000 Nucleated RBC % (auto) 0.0 Anion Gap 11 L Estim Creat Clear Calc 103.4 Estimated GFR > 60 Fasting Glucose 110 H Calcium 8.6 Microbiology Microbiology Results: Microbiology 01/19/22 Unknown Gram Stain - Final Peritoneal Fluid Routine Culture - Final Escherichia coli Procedures Date of Service Date of Service: 01/22/22 Progress Note: A&P Assessment and plan (1) Status post Zana's procedure: Status: Acute Assessment and Plan: repeat CT done yesterday - no abscess stoma functioning - will start on diet restart ProAir from home encouraged ambulation pain mgt labs ok this morning Fall Risk Details Current Medications: Current Medications Albuterol Sulfate (Albuterol Sulfate 90 Mcg 8 Gm Inhaler) 2 puff INHALE Q6H PRN PRN Reason: Shortness of Breath Dextrose/Lactated Ringer's (D5lr) 1,000 mls @ 80 mls/hr IVCONT .[id number] [facility] Last Admin: 01/22/22 04:43 Dose: 125 mls/hr Documented by: Piperacillin Sod/Tazobactam (Sod 3.375 gm/ Sodium Chloride) 50 mls @ 100 mls/hr IV Q6H [facility] Last Infusion: 01/22/22 05:17 Dose: Infused Documented by: Acetaminophen (Ofirmev) 1,000 mg in 100 mls @ 400 mls/hr IV Q6H [facility] Last Infusion: 01/22/22 09:36 Dose: Infused Documented by: Morphine Sulfate (Morphine Sulfate 4 Mg/Ml Cartridge) 4 mg IVPUSH Q2H PRN; Protocol PRN Reason: Pain, Severe (Pain Scale 7-10) Last Admin: 01/21/22 19:49 Dose: 4 mg Documented by: Omeprazole (Omeprazole 20 Mg Capsule.) 20 mg PO DAILY@0630 [facility] Last Admin: 01/22/22 05:21 Dose: 20 mg Documented by: Ondansetron HCl (Ondansetron Hcl 4 Mg/2 Ml Vial) 4 mg IVPUSH QID PRN PRN Reason: Nausea Last Admin: 01/19/22 09:06 Dose: 4 mg Documented by: Oxycodone HCl (Oxycodone Hcl Immed Release 5 Mg Tablet) 5 mg PO Q4H PRN PRN Reason: Pain, Moderate (Pain Scale 4-6 Last Admin: 01/21/22 02:19 Dose: 5 mg Documented by: Pharmacy Consult (Consult Rx Perform Med Rec) 1 each MISCELLANE ONCE PRN PRN Reason: Consult order Zolpidem Tartrate (Zolpidem Tartrate 5 Mg Tablet) 5 mg PO BEDTIME PRN PRN Reason: Insomnia Last Admin: 01/20/22 21:01 Dose: 5 mg Documented by: Time Spent With Patient Time: Total time spent is greater than 50% in coordination of care (as documented) at patient's floor/unit and/or counseling patient: Time with patient: 15 - 24 minutes Quality Stroke Does the patient have a stroke diagnosis?: No VTE Prior VTE?: No VTE Risk Level:: Surgical - moderate VTE Device Contraindication: N/A - Device Ordered VTE Drug Contraindication: Treatment Not Indicated
[2022-01-22] MEDS: Albuterol Sulfate 90 MCG 8 GM INHALER 2 PUFF INHALE (11:51)
[2022-01-22] MEDS: Morphine Sulfate 4 MG/ML CARTRIDGE IVPUSH (15:16)
[2022-01-22] MEDS: Zolpidem Tartrate 5 MG TABLET PO (22:19)
[2022-01-23] VITALS: BP 135/60; PULSE 65; RESP 18; TEMP 36.2; O2SAT 96
[2022-01-23] MEDS: Morphine Sulfate 4 MG/ML CARTRIDGE IVPUSH ×3 (02:15→21:23)
--- NOTE | 2022-01-23 02:30 | PC.NURSE ---
pt c/0 7/10 right upper back/side pain with deep breathing.[id number]% on RA.lungs are dim.states started 1/2 hr ago.medicated with morphine 4mg. notified.
[2022-01-23 04:00] VITALS: BP 140/55; PULSE 65; RESP 18; TEMP 36.2; O2SAT 95
[2022-01-23] MEDS: Piperacillin Sodium/Tazobactam 3.375 GM in 0.9 % Sodium Chloride 50 ML IV ×4 (05:05→21:20)
[2022-01-23] MEDS: Omeprazole 20 MG CAPSULE.DR PO (05:05)
[2022-01-23] MEDS: Dextrose 5 % and Lactated Ring 1,000 ML 125 ML IVCONT (05:06)
[2022-01-23 08:00] VITALS: BP 172/94; PULSE 64; RESP 18; TEMP 36.6; O2SAT 95
--- NOTE | 2022-01-23 09:34 | P.PNGS_ITS ---
Subjective Subjective Date of Service: 01/23/22 Interval history: c/o sharp pain on posterior right chest with deep inspiration says she is unable to be in a comfortable position with this good PO intake stoma functioning no fever Physical Exam Vital Signs: Vital Signs: Last Vital Signs Temp 97.9 F 01/23/22 08:00 Pulse 64 01/23/22 08:00 Resp 18 01/23/22 08:00 BP 172/94 H 01/23/22 08:00 Pulse Ox 95 01/23/22 08:00 BMI result Body Mass Index 27.3 Const: General: comfortable and no acute distress Resp: Auscultation: clear to auscultation bilaterally Cardio: Rate: regular rate Rhythm: regular rhythm GI: Other: incisions healing well, dry, nazia intact, stoma looks health, good output Palpation (GI): Soft to palpation, not firm and no guarding Objective Data Active Medications Albuterol Sulfate (Albuterol Sulfate 90 Mcg 8 Gm Inhaler) 2 puff INHALE Q6H PRN PRN Reason: Shortness of Breath Last Admin: 01/22/22 11:51 Dose: 2 puff Documented by: LISA Dextrose/Lactated Ringer's (D5lr) 1,000 mls @ 80 mls/hr IVCONT .[id number] [facility] Last Admin: 01/23/22 05:06 Dose: 125 mls/hr Documented by: DEREK Piperacillin Sod/Tazobactam (Sod 3.375 gm/ Sodium Chloride) 50 mls @ 100 mls/hr IV Q6H [facility] Last Infusion: 01/23/22 05:54 Dose: 0 mls/hr Documented by: DEREK Acetaminophen (Ofirmev) 1,000 mg in 100 mls @ 400 mls/hr IV Q6H [facility] Last Infusion: 01/23/22 09:01 Dose: 0 mls/hr Documented by: SELENE Morphine Sulfate (Morphine Sulfate 4 Mg/Ml Cartridge) 4 mg IVPUSH Q2H PRN; Protocol PRN Reason: Pain, Severe (Pain Scale 7-10) Last Admin: 01/23/22 05:50 Dose: 4 mg Documented by: DEREK Omeprazole (Omeprazole 20 Mg Zayra.) 20 mg PO DAILY@0630 [facility] Last Admin: 01/23/22 05:05 Dose: 20 mg Documented by: DEREK Ondansetron HCl (Ondansetron Hcl 4 Mg/2 Ml Vial) 4 mg IVPUSH QID PRN PRN Reason: Nausea Last Admin: 01/19/22 09:06 Dose: 4 mg Documented by: LISA Oxycodone HCl (Oxycodone Hcl Immed Release 5 Mg Tablet) 5 mg PO Q4H PRN PRN Reason: Pain, Moderate (Pain Scale 4-6 Last Admin: 01/21/22 02:19 Dose: 5 mg Documented by: LIANET Pharmacy Consult (Consult Rx Perform Med Rec) 1 each MISCELLANE ONCE PRN PRN Reason: Consult order Zolpidem Tartrate (Zolpidem Tartrate 5 Mg Tablet) 5 mg PO BEDTIME PRN PRN Reason: Insomnia Last Admin: 01/22/22 22:19 Dose: 5 mg Documented by: DEREK Labs CBC & Chem 7: 01/22/22 05:18 01/22/22 05:18 Microbiology Microbiology Results: Microbiology 01/19/22 Unknown Gram Stain - Final Peritoneal Fluid Routine Culture - Final Escherichia coli Procedures Date of Service Date of Service: 01/23/22 Progress Note: A&P Assessment and plan (1) Status post Zana's procedure: Status: Acute Assessment and Plan: her only complaint now is pain on right side of posterior chest sounds more of pleuritic pain - CXR ordered says morphine not helping much with posterior chest pain - Toradol added otherwise seems to have good GI function dc IVF encouraged to ambulate more incentive spirometry clinically looks well Fall Risk Details Current Medications: Current Medications Albuterol Sulfate (Albuterol Sulfate 90 Mcg 8 Gm Inhaler) 2 puff INHALE Q6H PRN PRN Reason: Shortness of Breath Last Admin: 01/22/22 11:51 Dose: 2 puff Documented by: Dextrose/Lactated Ringer's (D5lr) 1,000 mls @ 80 mls/hr IVCONT .[id number] [facility] Last Admin: 01/23/22 05:06 Dose: 125 mls/hr Documented by: Piperacillin Sod/Tazobactam (Sod 3.375 gm/ Sodium Chloride) 50 mls @ 100 mls/hr IV Q6H [facility] Last Infusion: 01/23/22 05:54 Dose: Infused Documented by: Acetaminophen (Ofirmev) 1,000 mg in 100 mls @ 400 mls/hr IV Q6H [facility] Last Infusion: 01/23/22 09:01 Dose: Infused Documented by: Morphine Sulfate (Morphine Sulfate 4 Mg/Ml Cartridge) 4 mg IVPUSH Q2H PRN; Protocol PRN Reason: Pain, Severe (Pain Scale 7-10) Last Admin: 01/23/22 05:50 Dose: 4 mg Documented by: Omeprazole (Omeprazole 20 Mg Capsule.Dr) 20 mg PO DAILY@0630 [facility] Last Admin: 01/23/22 05:05 Dose: 20 mg Documented by: Ondansetron HCl (Ondansetron Hcl 4 Mg/2 Ml Vial) 4 mg IVPUSH QID PRN PRN Reason: Nausea Last Admin: 01/19/22 09:06 Dose: 4 mg Documented by: Oxycodone HCl (Oxycodone Hcl Immed Release 5 Mg Tablet) 5 mg PO Q4H PRN PRN Reason: Pain, Moderate (Pain Scale 4-6 Last Admin: 01/21/22 02:19 Dose: 5 mg Documented by: Pharmacy Consult (Consult Rx Perform Med Rec) 1 each MISCELLANE ONCE PRN PRN Reason: Consult order Zolpidem Tartrate (Zolpidem Tartrate 5 Mg Tablet) 5 mg PO BEDTIME PRN PRN Reason: Insomnia Last Admin: 01/22/22 22:19 Dose: 5 mg Documented by: Time Spent With Patient Time: Total time spent is greater than 50% in coordination of care (as documented) at patient's floor/unit and/or counseling patient: Time with patient: 15 - 24 minutes Quality Stroke Does the patient have a stroke diagnosis?: No VTE Prior VTE?: No VTE Risk Level:: Surgical - moderate VTE Device Contraindication: N/A - Device Ordered VTE Drug Contraindication: Treatment Not Indicated
[2022-01-23 11:51] VITALS: BP 132/67; PULSE 58; RESP 18; TEMP 36.8; O2SAT 95
--- NOTE | 2022-01-23 15:04 | MHC.CM.PN ---
Addendum entered by Renetta Whitney 01/24/22 09:38: clinically acce[ptd by [facility] for nrusing , they requested that at time of dischagre patient be sent home with 4-5 ostomy bags and related supplies (as with her speccifc ins contracts t will take a little trino sunshine for ordering and delivery of them ) this information was relayed to the staff nurse assighned to patient , if she for any reason should run out to also as back up call the [facility] office Addendum entered by Arianna Swain 01/23/22 15:07: VNA REFERRALS UPDATED Original Note: NO PLAN FOR DISCHARGE TODAY. CHEST XRAY ORDERED. POSSIBLE RETURN HOME MONDAY CURRENTLY STILL WITH RIGHT SIDED POSTERIOR PAIN
[2022-01-23 16:00] VITALS: BP 141/67; PULSE 64; RESP 18; TEMP 36.3; O2SAT 95
[2022-01-23 20:00] VITALS: BP 185/89; PULSE 74; RESP 18; TEMP 36.4; O2SAT 98
[2022-01-23] MEDS: Zolpidem Tartrate 5 MG TABLET PO (21:23)
[2022-01-24] VITALS: BP 141/81; PULSE 65; RESP 17; TEMP 37.2; O2SAT 95
[2022-01-24] MEDS: Ketorolac Tromethamine 30 MG/ML VIAL IVPUSH (01:48)
[2022-01-24 03:56] VITALS: BP 152/77; PULSE 68; RESP 17; TEMP 36.3; O2SAT 96
[2022-01-24] MEDS: Piperacillin Sodium/Tazobactam 3.375 GM in 0.9 % Sodium Chloride 50 ML IV (05:11)
[2022-01-24] MEDS: Omeprazole 20 MG CAPSULE.DR PO (05:12)
[2022-01-24 07:02] VITALS: BP 170/80; PULSE 67; RESP 18; TEMP 36.1; O2SAT 96
--- NOTE | 2022-01-24 07:23 | W.MHC.F2F ---
Service Date Service Date: 01/24/22 Encounter Date of encounter: 01/24/22 Encounter: Abdominal wound check Reasons for Services Signs and symptoms assessed: Wound/ostomy care following colostomy Reason for retirement: wound care Homebound: Leaving the home is medically contraindicated at this time without the asist of a device and/or another person due th the listed conditions above and below. 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 The patient is under my care, and I have initiated the establishment of the plan of care. The patient will be followed by a physician who will periodically review the plan of care.
[2022-01-24 07:45] VITALS: BP 148/90
--- NOTE | 2022-01-24 08:32 | PM.PNGS ---
Subjective Subjective Date of Service: 01/24/22 Interval history: Feels great this morning. Wants to go home. Emptying ostomy appliance on own. Tolerating solid diet. OOB and ambulating. Pain is minimal and well controlled. Physical Exam Vital Signs: Vital Signs: Last Vital Signs Temp 97 F 01/24/22 07:02 Pulse 67 01/24/22 07:02 Resp 18 01/24/22 07:02 BP 148/90 H 01/24/22 07:45 Pulse Ox 96 01/24/22 07:02 BMI result Body Mass Index 27.3 Const: General: comfortable, no acute distress and alert Orientation/consciousness: patient oriented x3 Resp: Effort & Inspection: normal respiratory effort GI: Other: ostomy pink, liquid stool in appliance Inspection: Yes incision (clean) Palpation (GI): Soft to palpation, Tenderness to palpation present (GI) (minimal, incisional), no guarding and not rigid Skin: General skin exam: no rashes or lesions noted Neuro: General: patient oriented x3 Extrem: General: Yes no clubbing, cyanosis or edema Objective Data Active Medications Albuterol Sulfate (Albuterol Sulfate 90 Mcg 8 Gm Inhaler) 2 puff INHALE Q6H PRN PRN Reason: Shortness of Breath Last Admin: 01/22/22 11:51 Dose: 2 puff Documented by: LISA Piperacillin Sod/Tazobactam (Sod 3.375 gm/ Sodium Chloride) 50 mls @ 100 mls/hr IV Q6H [facility] Last Infusion: 01/24/22 05:49 Dose: 0 mls/hr Documented by: TRAVIS Acetaminophen ([facility]) 1,000 mg in 100 mls @ 400 mls/hr IV Q6H [facility] Last Admin: 01/24/22 07:48 Dose: Not Given Documented by: COTEMA Non-Admin Reason: patient refused, no pain Ketorolac Tromethamine (Ketorolac Tromethamine 30 Mg/Ml Vial) 30 mg IVPUSH Q6H PRN PRN Reason: Pain, Severe (Pain Scale 7-10) Last Admin: 01/24/22 01:48 Dose: 30 mg Documented by: TRAVIS Omeprazole (Omeprazole 20 Mg Capsule.) 20 mg PO DAILY@0630 [facility] Last Admin: 01/24/22 05:12 Dose: 20 mg Documented by: TRAVIS Ondansetron HCl (Ondansetron Hcl 4 Mg/2 Ml Vial) 4 mg IVPUSH QID PRN PRN Reason: Nausea Last Admin: 01/19/22 09:06 Dose: 4 mg Documented by: LISA Oxycodone HCl (Oxycodone Hcl Immed Release 5 Mg Tablet) 5 mg PO Q4H PRN PRN Reason: Pain, Moderate (Pain Scale 4-6 Last Admin: 01/21/22 02:19 Dose: 5 mg Documented by: LIANET Pharmacy Consult (Consult Rx Perform Med Rec) 1 each MISCELLANE ONCE PRN PRN Reason: Consult order Labs CBC & Chem 7: 01/22/22 05:18 01/22/22 05:18 Microbiology Microbiology Results: Microbiology 01/18/22 22:57 Blood Culture - Final Blood - Venous No growth after 5 days. 01/18/22 22:57 Blood Culture - Final Blood - Venous No growth after 5 days. Procedures Date of Service Date of Service: 01/24/22 Progress Note: A&P Assessment and plan (1) Status post Ileana's procedure: Status: Acute (2) Diverticulitis of intestine with perforation and abscess: Status: Acute Plan 41 year old female s/p ileana procedure for perforated diverticulitis. Doing well post op. Tolerating solid diet, pain well controlled. Ostomy functioning well and patient participating in care. VSS. Abd exam benign- soft, minimal tenderness, incision clean and ostomy viable appearing. She feels ready for discharge. D/c to home today with VNA services and on PO course of abx. F/u in 1 week in office. Fall Risk Details Current Medications: Current Medications Albuterol Sulfate (Albuterol Sulfate 90 Mcg 8 Gm Inhaler) 2 puff INHALE Q6H PRN PRN Reason: Shortness of Breath Last Admin: 01/22/22 11:51 Dose: 2 puff Documented by: Piperacillin Sod/Tazobactam (Sod 3.375 gm/ Sodium Chloride) 50 mls @ 100 mls/hr IV Q6H [facility] Last Infusion: 01/24/22 05:49 Dose: Infused Documented by: Acetaminophen (Ofirmev) 1,000 mg in 100 mls @ 400 mls/hr IV Q6H [facility] Last Admin: 01/24/22 07:48 Dose: Not Given Documented by: Ketorolac Tromethamine (Ketorolac Tromethamine 30 Mg/Ml Vial) 30 mg IVPUSH Q6H PRN PRN Reason: Pain, Severe (Pain Scale 7-10) Last Admin: 01/24/22 01:48 Dose: 30 mg Documented by: Omeprazole (Omeprazole 20 Mg Capsule.Dr) 20 mg PO DAILY@0630 [facility] Last Admin: 01/24/22 05:12 Dose: 20 mg Documented by: Ondansetron HCl (Ondansetron Hcl 4 Mg/2 Ml Vial) 4 mg IVPUSH QID PRN PRN Reason: Nausea Last Admin: 01/19/22 09:06 Dose: 4 mg Documented by: Oxycodone HCl (Oxycodone Hcl Immed Release 5 Mg Tablet) 5 mg PO Q4H PRN PRN Reason: Pain, Moderate (Pain Scale 4-6 Last Admin: 01/21/22 02:19 Dose: 5 mg Documented by: Pharmacy Consult (Consult Rx Perform Med Rec) 1 each MISCELLANE ONCE PRN PRN Reason: Consult order Time Spent With Patient Time: Total time spent is greater than 50% in coordination of care (as documented) at patient's floor/unit and/or counseling patient: Time with patient: 15 - 24 minutes Quality Stroke Does the patient have a stroke diagnosis?: No VTE Prior VTE?: No VTE Risk Level:: Surgical - moderate VTE Device Contraindication: N/A - Device Ordered VTE Drug Contraindication: Treatment Not Indicated
--- NOTE | 2022-01-24 12:01 | P.DS_ITS ---
DS: Providers Provider Date of Service: 01/24/22 Date of admission: 01/19/22 00:45 Primary care physician: Kate Ramos MD Attending physician on admission: Jorge Marrero DS: Diagnosis Discharge Diagnosis (1) Status post Ileana's procedure: Status: Acute (2) Diverticulitis of intestine with perforation and abscess: Status: Acute DS: Summary Hospital Course Hospital Course: BRIEF HPI: Abby Whatley is a 41 year old female presenting with complaints of severe abdominal pain in the left lower quadrant. She was previously evaluated at [facility] and diagnosed with diverticulitis, and discharged to home on pain meds. She presented today with increased abdominal pain mainly in the lower abdomen. Pain was associated with nausea without vomiting visible was loose stool. She also was febrile with chills. She denies a similar pain. She denies previous abdominal surgery. She has a history of acid reflux. In the emergency department, she was found to be tender throughout her abdomen, especially on the left lower quadrant. WBC was elevated and CT revealed bubbles of intraperitoneal air suggestive of a perforated colon, perhaps the cecum or sigmoid colon. HOSPITAL COURSE: She was admitted to the surgical service for further management including IV antibiotics, IV hydration, bowel rest. Her repeat leukocytosis actually improved with IV antibiotics but she continued to have abdominal pain. A repeat CT of the abdomen and pelvis without contrast was performed which was suggestive of acute appendicitis, possible perforated appendicitis. The findings on CT were reviewed with the patient. I recommended a laparoscopic or possible open appendectomy. After a discussion of the procedure, alternatives and risks, she consents to the procedure. She was added on to the OR schedule for that day. On 01/19/2022, a laparoscopic appendectomy, ileana's procedure, drainage of intraabdominal abscess was performed by Dr. Marrero without complication. A large abdominal abscess with multiple interloop fluid collections and peritonitis, a normal appearing appendix, and evidence of a perforated sigmoid diverticulitis with leak of fecal material was found intraoperatively. The patient tolerated the procedure well and was admitted for observation. The patient had a slow but uncomplicated recovery course and remained inpatient for a prolonged course of IV zosyn given the intraabdominal abscess / perforated diverticulitis. She was doing fairly well on POD #1. Her zarate catheter was removed. She was tolerating clear liquids and this was continued as she had no evidence of GI function yet. Her pain was adequately controlled. She developed sharp, intermittent RLQ pain the following day and there was concern for recurrent abscess. CT scan was obtained which revealed post operative changes but no evidence of abscess. She felt improved the following day. Her colostomy began to have flatus and stool output. She was advanced to a solid diet. She did develop SOB post op which improved some what with her pro air but she then developed upper back pain. CXR was obtained which showed no acute pathology. The pain/SOB improved with ambulation and IS use. On the day of discharge, the patient was tolerating a solid diet, her pain was controlled with PO analgesics and her ostomy was functioning well and she had a clean incision. Colostomy education was performed. She completed a 6 day course of IV zosyn. She was discharged to home on 01/24/22 in stable condition on a PO course of augmentin with VNA services for colostomy care. She is to follow up in the office with Dr. Marrero in 1 week. Status at Discharge Functional status at discharge: independent ambulation Overall status at discharge: patient is progressing back to baseline Time Spent with Patient Time attestation: Total time spent providing and/or coordinating discharge services: Discharge coordination time: Greater than 30 minutes Quality: Stroke Does the patient have a stroke diagnosis?: No Physical Exam Vital Signs: Vital Signs: Last Vital Signs Temp 97 F 01/24/22 07:02 Pulse 67 01/24/22 07:02 Resp 18 01/24/22 07:02 BP 148/90 H 01/24/22 07:45 Pulse Ox 96 01/24/22 07:02 BMI result Body Mass Index 27.3 Const: General: comfortable, no acute distress and alert Orientation/consciousness: patient oriented x3 Resp: Effort & Inspection: normal respiratory effort GI: Other: ostomy pink, stool in appliance Inspection: No distended and Yes incision (clean) Palpation (GI): Soft to palpation, Tenderness to palpation present (GI) (mild, incisional), no guarding and not rigid Percussion: Yes normal to percussion Skin: General skin exam: no rashes or lesions noted Neuro: General: patient oriented x3 Extrem: General: Yes no clubbing, cyanosis or edema DS: Data Data Completed and Pending Completed studies during hospitalization [Text1]: 01/19/22 16:36 Surgical [PTH] Routine A. Vermiform appendix, appendectomy: Acute appendicitis. B. Colon, sigmoid, segmental resection: Diverticular-associated segmental colitis with abscess formation; serosal fibrinopurulent material/adhesions. Discharge Plan Discharge Patient Disposition: Home Health Service Discharge Diagnosis: Perforated Sigmoid Diverticulitis, [place] 4 Referrals: Mary MADRID [Outside] - 1 Day (referral for the visiting nurses for post surgical assessment , pain assessment new ostomy teaching , and sign symptom management , medication reconclation pcp dr kate sy patient o call for post hospital discharge surgeron patient to follow up per dischagre instructions transportation patient to self arrange ) Kate Ramos MD [Primary Care Provider] - 1 Week Discharge Medications: New amoxicillin-pot clavulanate [Augmentin] 500-125 mg tablet 1 tab PO Q8H Qty: 21 0RF oxycodone-acetaminophen [Endocet] 5-325 mg tablet 1 tab PO Q6H PRN (Reason: pain (scale score 7-10)) Qty: 14 0RF Continued pantoprazole 40 mg tablet,delayed release (DR/EC) 40 mg PO DAILY Qty: 90 0RF Discharge Orders: Discharge Order (Routine); Ordered 01/24/22 Ordered By: Jorge Marrero Diet: advance to usual diet Activity on Discharge: No heavy lifting Stand Alone Forms: Patient Portal Discharge page, Work/School Release Activity Restrictions/Additional Instructions: If the incision area is tender, you may apply an ice pack for short intervals (No more than 20 minutes on, followed by at least 20 minutes off). Do not apply heat. Do not use creams, lotions, or topical antibiotics unless instructed to do so by your surgeon. These can cause infection or allergic reaction. Ok to shower. You have nazia closing your incision and these will be removed approximately 10-14 days after surgery. NO HEAVY LIFTING (>10lbs). Follow up in office. ([phone]) COLOPLAST #[id number] CHANGE Q3-4 DAYS AND PRN Call Your Doctor If: -Your temperature exceeds 101.5? F -You experience excessive pain or swelling -You have an unexpected reaction to medication -You have excessive bleeding -You experience continued vomiting/nausea -Your incision begins to separate -Your incision shows signs of infection such as increased redness, swelling, excessive pain, drainage (light blood or clear fluid is normal) or heat Care Plan Goals: Return to normal diet and activity, closure of colostomy Health Concerns: Perforated sigmoid diverticulitis with fecal peritonitis Plan of Treatment: s/p Zafar's procedure Assessment: Perforated sigmoid diiverticulitis with fecal peritonitis Discharge Date/Time: 01/24/22 10:45
== END 2022-01-24 10:45 | disposition home health service (06) | DRG 710 ==
LOC: HO.ED 01-19 00:41 → HO.EDOVER 01-19 01:01 → HO.S3 01-19 18:08
PROVIDERS: Physician Assistant; Physician Assistant Surgical; Admitting Provider Surgery; Emergency Provider Internal Medicine; PCP Internal Medicine; Visit Provider Surgery
PROC: 0DTJ4ZZ Resection of Appendix, Percutaneous Endoscopic Approach (ICD-10-PCS; CPT 44970; principal; 2022-01-19 14:00)
DX: A41.9 Sepsis, unspecified organism (principal); Z20.822 Contact with and (suspected) exposure to COVID-19; Z79.899 Other long term (current) drug therapy
CPT/HCPCS: 36415; 71045; 74176; 74177; 80048; 81001; 81025; 83605; 83690; 85025; 85610; 86850; 86900; 86901; 87040; 87071; 87077; 87186; 87205; 87635; 88304; 88307; 93005; 94640; 96361; 96365; 96375; 99024; 99284; 99291; J0131; J1170; J1885; J2060; J2250; J2270; J2405; J2543; J2550; J3010; Q9967

== ENCOUNTER → 2022-02-03 09:52 | Outpatient (BNVA) | payer BC, SELFPAY | PROVIDERS: PCP Internal Medicine; Referring Provider Internal Medicine; Visit Provider Surgery | DX: K57.80 Diverticulitis of intestine, part unspecified, with perforation and abscess without bleeding (principal); F17.210 Nicotine dependence, cigarettes, uncomplicated; Z93.3 Colostomy status; Z48.815 Encounter for surgical aftercare following surgery on the digestive system | CPT/HCPCS: 99212 ==

== ENCOUNTER 2022-03-21 06:07 | Inpatient (IN) | payer BC, SELFPAY ==
[2022-03-11 10:20] VITALS: BMI 27.2
--- NOTE | 2022-03-18 08:19 | HO.ANESPROP2 ---
Documented by User: Patria Bauer NP 03/18/22 08:20 HPI - Anesthesia Eval Consult details Narrative: 41yo F for Colostomy Closure s/p ostomy 01/2022 (perforated divertic) with GA-ETT 7 PMFSH Active Problems Active Problems: All Active Problems (Updated 03/11/22 @ 09:47 by Renetta Hassan, RN) Blepharitis of eyelid of right eye (Acute) Conjunctivitis (Acute) Contact dermatitis (Acute) Chronic GERD (Acute) Overweight (BMI 25.0-29.9) (Acute) Encounter for general adult medical examination with abnormal findings (Acute) Alcoholism (Acute) Diverticulitis of intestine with perforation and abscess (Acute) Status post Zana's procedure (Acute) Diverticulitis (Acute) Past Medical History Medical History (Updated 03/11/22 @ 09:47 by Renetta Hassan RN) Acute abdomen Allergy-induced asthma Diverticulitis GERD (gastroesophageal reflux disease) Family History Family History Father HTN (hypertension) History of CVA (cerebrovascular accident) Mother No problems noted. Maternal Grandfather Myocardial infarction Paternal Grandfather Myocardial infarction Brother No problems noted. Sister No problems noted. Daughter No problems noted. Daughter No problems noted. Family history of problems with anesthesia: No Surgical History Surgical History (Updated 03/11/22 @ 09:39 by Renetta Hassan RN) History of appendectomy Hx of esophagogastroduodenoscopy History of Problems with Anesthesia: No Social History Social History Household Members: Spouse and Family Household Members Other:: Mother and children Housing: House Are you a primary out of school hours care worker to a significant other at home: No Do you presently have visiting nurse or other home services: Yes (Mary WALKERA- since Sx 01/2022) Patient Tobacco Use Status: Former Tobacco user Quit Date: 01/19/22 Tobacco use type: Cigarette Cigarette Packs Per Day: 0.25 Cigarettes Per Day: 5.0 Years Smoked: 25 Smoked in Last 30 Days: No Patient Interested in Nicotine Replacement: No Use of substances other than those prescribed or required for medical reasons: No Have you been hit, kicked, punched, or otherwise hurt by someone within the past year? If so, by whom?: No Are you DNR?: No Advance Directives: No Advance Directives Information Provided: Yes (Mailed w/ pre-op instructions) Advance Directives on File: No Recently lost weight without trying: No Eating poorly because of decreased appetite: No Nutrition Risks: No Nutritional Risk Patient : No FDLMP: 02/19/22 : No service: No Current occupational status: employed Meds Allergies Allergy/AdvReac Type Severity Reaction Status Date / Time No Known Allergies Allergy Verified 03/11/22 09:39 [No Known Allergies*] Home Medications Medication Instructions Recorded Confirmed Last Taken Type albuterol sulfate 90 mcg/actuation 2 puff INHALATION Q6H PRN 03/11/22 03/11/22 Unknown History aerosol inhaler (ProAir HFA) Exam Exam Date and Time: March 18, 202219 Height,Weight and Vital Signs: Height 5 ft 2 in Weight 67.585 kg Pertinent Lab Results Pertinent Lab Results: Laboratory Tests 01/22/22 01/22/22 05:18 05:18 WBC 8.5 Hgb 10.8 L Hct 32.9 L Plt Count 296 D Sodium 139 Potassium 3.5 Chloride 101 Carbon Dioxide 31 H BUN 4 L Creatinine 0.64 Narrative Narrative: EKG 01/2022 Vent. Rate : 100 BPM ? ? Atrial Rate : 100 BPM ?? P-R Int : 166 ms? QRS Dur : 088 ms ? ? QT Int : 342 ms ? ? ? P-R-T Axes : 054 -04 031 degrees ?? QTc Int : 441 ms ? Normal sinus rhythm Normal ECG When compared with ECG of 22-MAY-2007 12:13, Questionable change in QRS axis Assessment and Plan Assessment Anesthesia Assessment: Chart Reviewed Final Anesthetic Review Family History of Problems with Anesthesia: No History of Problems with Anesthesia: No Documented by User: Rush Hines MD 03/21/22 06:53 [facility] Past Medical History Medical History (Updated 03/11/22 @ 09:47 by Renetta Hassan RN) Acute abdomen Allergy-induced asthma Diverticulitis GERD (gastroesophageal reflux disease) Family History Family History Father HTN (hypertension) History of CVA (cerebrovascular accident) Mother No problems noted. Maternal Grandfather Myocardial infarction Paternal Grandfather Myocardial infarction Brother No problems noted. Sister No problems noted. Daughter No problems noted. Daughter No problems noted. Surgical History Surgical History (Updated 03/11/22 @ 09:39 by Renetta Hassan RN) History of appendectomy Hx of esophagogastroduodenoscopy Social History Social History Household Members: Spouse and Family Household Members Other:: Mother and children Housing: House Are you a primary out of school hours care worker to a significant other at home: No Do you presently have visiting nurse or other home services: Yes (Mary MADRID- since Sx 01/2022) Patient Tobacco Use Status: Former Tobacco user Quit Date: 01/19/22 Tobacco use type: Cigarette Cigarette Packs Per Day: 0.25 Cigarettes Per Day: 5.0 Years Smoked: 25 Smoked in Last 30 Days: No Patient Interested in Nicotine Replacement: No Use of substances other than those prescribed or required for medical reasons: No Have you been hit, kicked, punched, or otherwise hurt by someone within the past year? If so, by whom?: No Are you DNR?: No Advance Directives: No Advance Directives Information Provided: Yes (Mailed w/ pre-op instructions) Advance Directives on File: No Recently lost weight without trying: No Eating poorly because of decreased appetite: No Nutrition Risks: No Nutritional Risk Patient : No FDLMP: 02/19/22 : No service: No Current occupational status: employed Meds Allergies Allergy/AdvReac Type Severity Reaction Status Date / Time No Known Allergies Allergy Verified 03/11/22 09:39 [No Known Allergies*] Home Medications Medication Instructions Recorded Confirmed Last Taken Type albuterol sulfate 90 mcg/actuation 2 puff INHALATION Q6H PRN 03/11/22 03/11/22 Unknown History aerosol inhaler (ProAir HFA) Exam Airway Mallampati Class: II TM Dist: >3cm Neck ROM: Full Loose/Missing/Broken Teeth: No Heart: rrr+[id number] Lungs: cta b/l Assessment and Plan Assessment Anesthesia Assessment: Anesthesia Plan Discussed Final Anesthetic Review NPO: Yes ASA Class: II Final Preanesthetic Review: No Changes in Pt Med Stat, Meds/Allgs Chart Reviewed, Consent Obtained/Reviewed and Anes Risks/Benef Reviewed Patient Risk: Intermediate Procedure Risk: Intermediate Assessment/Block/Sedation in SS: Assess/Block/Sedation-SS Anesthetic Plan Anesthetic Plan: GA and Agree w/ Assess. and Plan Disposition: Standard PACU
[2022-03-21] VITALS (18 sets, daily range): BP systolic 120–173; BP diastolic 60–103; PULSE 65–100; RESP 12–18; TEMP 36.1–36.9; O2SAT 95–100
[2022-03-21 06:32] LABS: UPreg QC Valid YES; Urine Pregnancy NEGATIVE (NEGATIVE)
[2022-03-21] MEDS: Lactated Ringers 1,000 ML 100 ML IVCONT (06:39)
[2022-03-21 06:48] LABS: COVID-19 Test Negative (Negative)
--- NOTE | 2022-03-21 07:25 | MHC.SHP ---
Pre-Procedural Eval Section A Date of Service: 03/21/22 The patient is an INPATIENT: No Changes since office visit: Yes Patient answered all questions; No Cold of Flu in the past 2 weeks, No New Medical Problems and No Changes in Medication The History & Physical has been completed within 30 days and I have reviewed it.: No Section B Chief Complaint: Closure of colostomy, diverticulitis Details of Present Illness: Perforated sigmoid diverticulitis, s/p Zafar's procedure, returning for closure of colostomy Relevant Family History (Specify if Yes): No Relevant Social History: None Present Medications: see Short Stay Collaborative assessment Medical History: Significant History (diverticulitis) History of Previous Operations: Relevant previous surgery/procedure and date(s) (02/03/2022 Zafar's ) Allergies: Allergies Allergy/AdvReac Type Severity Reaction Status Date / Time No Known Allergies Allergy Verified 03/11/22 09:39 [No Known Allergies*] Review of Systems Sugical H&P ROS: Negative: Constitution, Cardiovascular, Respiratory, Neurological, Psychiatric, Hem-Onc, Allergic/Immunologic, Gastrointestinal, Genitourinary, Musculoskeletal, Integumentary, Endocrine and Eyes/Ears/Nose/Throat Exam Surgical H&P Exam: Normal: HEENT, Normal: Heart, Normal: Lungs, Normal: Extremities, Normal: Abdomen, Normal: Skin and Normal: Neurological Plan Diagnosis/Plan: Unchanged I have reviewed the history and physical and performed a pertinent physical examination on my patient. No changes have occurred unless specified.
--- NOTE | 2022-03-21 10:24 | W.PM.OPN ---
Operative Note Operative Note Date of Service: 03/21/22 Narrative: Preoperative diagnosis: Perforated sigmoid diverticulitis, Zana's procedure Postoperative diagnosis: Same Procedure: Reversal of colostomy Surgeon: Jorge Marrero MD Access Services Assistant: Liliya Ortiz PA-C Anesthesia: General endotracheal Indications for procedure: 41-year-old female patient with a previous history of perforated sigmoid diverticulitis status post sigmoid resection and Zana procedure returning today for reversal of colostomy. Operative findings: Descending colostomy in the left lower quadrant. No evidence of abscess or ongoing diverticulitis. Specimen: Colostomy, rectal stump, EEA donuts Estimated blood loss: 20 mL Complications: None Procedure details: Patient was brought in the OR and placed in a supine position. After administering general anesthesia she was placed in a lithotomy position. The abdomen was prepped with ChloraPrep and perineum prepped with Betadine. Sterile drapes were then applied. A surgical time-out was called and consent confirmed. Patient received preoperative antibiotics and Venodyne boots were in place. Local anesthesia consisting of 0.25% Sensorcaine was infiltrated in the midline over her previous lower midline incision. This was carried out through subcutaneous tissue through linea alba into the peritoneum. Some minor adhesions were taken down with Metzenbaum scissors wall inventory control assistant elevated the abdominal cavity retractors. Attention was then directed to colostomy. An elliptical incision was made around the colostomy. She noted a colostomy was previously closed using a running locked Prolene suture. Incision was carried out through subcutaneous tissue and around the descending colon into the peritoneum. When entire colostomy but was mobilized past peritoneum was brought into abdominal cavity and brought out through the midline incision. Attention was then directed to the rectal stump which was identified by the previously marked Prolene sutures. This was then mobilized circumferentially down to the peritoneal reflection. A curved MICHELA stapler was then used to divide the rectal stump at the peritoneal reflection. Descending colon was then dissected of its mesentery below the colostomy bud. A pursestring clamp was then applied and a pursestring of prolene suture with a Riaz needle applied. Descending colon was then dilated the EEA sizers. A 28 mm EEA stapler was then obtained. The anvil was placed in the descending colon and the pursestring tied. Attention was then directed to the rectum. EEA sizers were then used to dilate the anal sphincter. A 28 mm stapler was then inserted and directed to the rectal stump. The spike was then passed posteriorly into the rectal wall. The anvil was then connected and the stapler fired. Interrupted 3-0 Surgilon sutures were then applied to reinforce the anastomosis. This was done in a Lembert fashion. The fired stapler was then removed and 2 complete donuts identified. The anastomosis was then tested by filling the pelvis with saline solution and air insufflated into the rectum. No leak could be identified. Abdomen was then thoroughly irrigated with saline solution and suctioned dry. The colostomy incision was also irrigated and suctioned dry. Fascia was closed in the midline using a 0 looped PDS suture. Subcutaneous tissue and dermis were then reapproximated using interrupted 3-0 Polysorb sutures. Skin was closed using skin nazia. The colostomy incision was then closed using interrupted 0 Polysorb suture in the rectus muscle followed by a running 0 Polysorb suture in the anterior rectus sheath. Subcutaneous tissue and dermis were then reapproximated using interrupted 3-0 Polysorb sutures. Skin was closed using skin nazia. Sterile dressings were then applied to both incisions. The patient tolerated the procedure well. Sponge, instrument, and needle counts reported as correct. The patient was transferred to PACU in stable condition.
[2022-03-21] MEDS: ondansetron HCL 4 MG/2 ML VIAL IVPUSH (10:43)
[2022-03-21] MEDS: HYDROmorphone HCl 0.5 MG/0.5 ML SYRINGE IVPUSH ×3 (10:43→13:20)
[2022-03-21] MEDS: Dextrose 5 % and Lactated Ring 1,000 ML 125 ML IVCONT (14:59)
[2022-03-21] MEDS: 0.9 % Sodium Chloride Flush 3 ML SYRINGE IVFLUSH ×2 (15:01→21:47)
[2022-03-21] MEDS: oxyCODONE HCl Immed Release 5 MG TABLET PO (20:04)
[2022-03-22 03:18] VITALS: BP 138/65; PULSE 67; RESP 16; TEMP 36.6; O2SAT 96
[2022-03-22] MEDS: Dextrose 5 % and Lactated Ring 1,000 ML 125 ML IVCONT ×2 (05:41→14:05)
[2022-03-22 06:20] LABS: MANUAL DIFF FLAG NO
[2022-03-22 06:29] LABS: Basophils Percent Auto 0.3 % (0-2); Eosinophils Percent Auto 0.2 % (0-4); Hematocrit 35.5 % (37.0-47.0); Hemoglobin 11.9 g/dl (12.0-16.0); Imm Gran Abs Auto 0.03 X10*3/uL (0.00-0.03); Imm Gran Pct Auto 0.3 % (0.0-0.4); Lymphocytes Absolute Auto 2.1 X10*3/uL (1.2-4.9); Mean Corpuscular HGB Conc 33.5 g/dl (31.0-35.0); Mean Corpuscular Hemoglobin 28.8 pg (27.0-33.0); Mean Platelet Volume 11.5 fL (9.4-12.3); Monocytes Absolute Auto 0.8 X10*3/uL (0.1-1.2); Monocytes Percent Auto 7.3 % (2-11); Neutrophils Absolute Auto 8.5 x10*3/uL (2.0-8.3); Neutrophils Percent Auto 73.9 % (45-73); Platelet Count 283 X10*3/uL (160-400); Red Blood Count 4.13 X10*6/uL (4.20-5.50); Red Cell Distribution Width 13.2 % (11.0-16.0); White Blood Count 11.5 X10*3/uL (4.8-10.8)
[2022-03-22 06:52] LABS: Anion Gap 11 (12-20); Blood Urea Nitrogen 6 mg/dL (9-16); Calcium 8.5 mg/dL (8.4-10.2); Carbon Dioxide 25 mmol/L (22-29); Chloride 104 mmol/L (96-108); Creatinine Clr Calc Pharmacy 101.6; Estimated Glomerular Filt Rate > 60; Glucose Random 118 mg/dL (60-115); Potassium 4.1 mmol/L (3.3-5.1); Sodium 136 mmol/L (135-145)
[2022-03-22 07:31] VITALS: BP 157/90; PULSE 84; RESP 18; TEMP 37.3; O2SAT 98
--- NOTE | 2022-03-22 07:52 | P.PNGS_ITS ---
Subjective Subjective Date of Service: 03/22/22 Patient reports: no new complaints, pain is less, tolerating liquids well, no flatus and no bowel movement Physical Exam Vital Signs: Vital Signs: Last Vital Signs Temp 99.2 F 03/22/22 07:31 Pulse 84 03/22/22 07:31 Resp 18 03/22/22 07:31 BP 157/90 H 03/22/22 07:31 Pulse Ox 98 03/22/22 07:31 BMI result Body Mass Index 27.2 Const: General: cooperative, comfortable and no acute distress Nutritional Appearance: well nourished Orientation/consciousness: patient oriented x3 Limitations: no limitations Resp: Effort & Inspection: normal respiratory effort and no audible wheezes GI: Inspection: Yes normal to inspection Palpation (GI): Soft to palpation, nontender, no guarding and not rigid Percussion: Yes normal to percussion Skin: Other: Warm, dry, no rash Neuro: General: patient oriented x3 Extrem: Other: No pedal edema Objective Data Active Medications Albuterol Sulfate (Albuterol Sulfate 90 Mcg 8 Gm Inhaler) 2 puff INHALE Q6H PRN PRN Reason: Wheezing Enoxaparin Sodium (Enoxaparin Sodium 40 Mg/0.4 Ml Syringe) 40 mg SUBCUT Q24H [facility] Acetaminophen (Ofirmev) 1,000 mg in 100 mls @ 400 mls/hr IV Q6H [facility] Last Infusion: 03/22/22 05:45 Dose: 0 mls/hr Documented by: LIANET Dextrose/Lactated Ringer's ([id number]) 1,000 mls @ 125 mls/hr IVCONT .Q8H [facility] Last Admin: 03/22/22 05:41 Dose: 125 mls/hr Documented by: LIANET Morphine Sulfate (Morphine Sulfate 2 Mg/Ml Cartridge) 4 mg IVPUSH Q3H PRN; Protocol PRN Reason: Pain, Severe (Pain Scale 7-10) Omeprazole (Omeprazole 20 Mg Capsule.Dr) 20 mg PO DAILY [facility] Ondansetron HCl (Ondansetron Hcl 4 Mg/2 Ml Vial) 4 mg IVPUSH Q8H PRN PRN Reason: Nausea Oxycodone HCl (Oxycodone Hcl Immed Release 5 Mg Tablet) 5 mg PO Q4H PRN PRN Reason: Pain, Moderate (Pain Scale 4-6 Last Admin: 03/21/22 20:04 Dose: 5 mg Documented by: LIANET Pharmacy Consult (Consult Rx Perform Med Rec) 1 each MISCELLANE ONCE PRN PRN Reason: Consult order Sodium Chloride (0.9 % Sodium Chloride Flush 3 Ml Syringe) 3 ml IVFLUSH QSHIFT KAVON Last Admin: 03/22/22 07:00 Dose: Not Given Documented by: COTEMA Non-Admin Reason: IV Running Zolpidem Tartrate (Zolpidem Tartrate 5 Mg Tablet) 5 mg PO BEDTIME PRN PRN Reason: Insomnia Labs CBC & Chem 7: 03/22/22 05:23 03/22/22 05:23 Labs: Laboratory Results - last 24 hr 03/22/22 03/22/22 05:23 05:23 MCV 86.0 MCH 28.8 MCHC 33.5 RDW 13.2 Plt Count 283 MPV 11.5 Immature Gran % (Auto) 0.3 Neut % (Auto) 73.9 H Lymph % (Auto) 18.0 L Thurston % (Auto) 7.3 Eos % (Auto) 0.2 Baso % (Auto) 0.3 Lymph # (Auto) 2.1 Thurston # (Auto) 0.8 Eos # (Auto) 0.0 Baso # (Auto) 0.0 Abs Immat Gran (auto) 0.03 Absolute Neuts (auto) 8.5 H Absolute Nucleated RBC 0.000 Nucleated RBC % (auto) 0.0 Anion Gap 11 L Estim Creat Clear Calc 101.6 Estimated GFR > 60 Random Glucose 118 H Calcium 8.5 Procedures Date of Service Date of Service: 03/22/22 Progress Note: A&P Assessment and plan (1) Diverticulitis of intestine with perforation and abscess: Status: Acute (2) Status post Zana's procedure: Status: Acute (3) History of colostomy reversal: Status: Acute Plan Pod 1 following reversal colostomy. Patient remains hemodynamically stable and wounds are clean and dry. Drew will be removed and she will ambulate in the hallway today. She was encouraged to perform deep breathing exercises/incentive spirometry. She tolerated clear liquids therefore will advance to a regular low-fiber diet. Await return of bowel function. Time Spent With Patient Time: Total time spent is greater than 50% in coordination of care (as documented) at patient's floor/unit and/or counseling patient: No Severe Sepsis: No Severe Sepsis Quality Stroke Does the patient have a stroke diagnosis?: No VTE Prior VTE?: No VTE Risk Level:: Surgical - moderate VTE Device Contraindication: N/A - Device Ordered VTE Drug Contraindication: N/A - Med Ordered
--- NOTE | 2022-03-22 08:08 | PC.NURSE ---
Patient zarate removed at 0800. Tolerated well. Patient due to void at 1400. Will continue to monitor.
--- NOTE | 2022-03-22 08:25 | HO.POSTANES ---
Post Anesthesia Evaluation Post Anesthesia Evaluation Vital Signs: Vital Signs Temp Pulse Resp BP Pulse Ox 03/22/22 07:31 99.2 F 84 18 157/90 H 98 03/22/22 03:18 98 F 67 16 138/65 96 03/21/22 23:41 97.2 F 71 16 120/60 96 Anesthesia: General Endotracheal-GETA Mental Status: Awake Pain Control: Satisfactory Nausea/Vomiting: None Hydration: Adequate Anesthesia-Related Issues: No Anes. Related Issues
[2022-03-22] MEDS: Omeprazole 20 MG CAPSULE.DR PO (08:52)
[2022-03-22] MEDS: oxyCODONE HCl Immed Release 5 MG TABLET PO ×2 (08:54→18:41)
[2022-03-22] MEDS: Enoxaparin Sodium 40 MG/0.4 ML SYRINGE SUBCUT (10:25)
[2022-03-22 11:54] VITALS: BP 160/80; PULSE 76; RESP 18; TEMP 36.9; O2SAT 98
--- NOTE | 2022-03-22 14:24 | MHC.CM.PN ---
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 she was active [facility] since her initial surgery for perforated diverticulitis and colostomy and now with reverrsale of colostomy. she reported she feels much better than her after her first surgery and does not feel she will need the [facility] back and declined for me to make any referrals at this time . confirmed pcp and covid vacinations x3 pfzier. educated about the importance of completing hcp on this admission, discharge plan home 1-2 days with family transportation family pcp dr loni thornton patient instructed to call for appointment to be seen for post op assessment surgical follow up per d/c instructions
[2022-03-22 15:38] VITALS: BP 157/90; PULSE 73; RESP 18; TEMP 36.7; O2SAT 97
--- NOTE | 2022-03-22 16:07 | PC.NURSE ---
Patient reports that she has voided multiple times in the bathroom, is passing gas and had a BM this afternoon.
[2022-03-22 19:22] VITALS: BP 172/95; PULSE 64; RESP 18; TEMP 36.8; O2SAT 97
[2022-03-22] MEDS: Zolpidem Tartrate 5 MG TABLET PO (21:49)
[2022-03-22] MEDS: 0.9 % Sodium Chloride Flush 3 ML SYRINGE IVFLUSH (21:51)
[2022-03-22 23:23] VITALS: BP 134/67; PULSE 68; RESP 16; TEMP 36.4; O2SAT 97
[2022-03-23 03:12] VITALS: BP 142/72; PULSE 67; RESP 16; TEMP 36.3; O2SAT 97
[2022-03-23] MEDS: Dextrose 5 % and Lactated Ring 1,000 ML 125 ML IVCONT (04:21)
[2022-03-23 08:00] VITALS: BP 181/98; PULSE 81; RESP 18; TEMP 36.8; O2SAT 98
[2022-03-23] MEDS: Omeprazole 20 MG CAPSULE.DR PO (09:30)
[2022-03-23] MEDS: oxyCODONE HCl Immed Release 5 MG TABLET PO (09:38)
--- NOTE | 2022-03-23 09:40 | PM.PNGS ---
Subjective Subjective Date of Service: 03/23/22 Interval history: Patient feels well, reports a BM yesterday. She tolerated the regular diet without nausea or vomiting. Denies significant abdominal pain. She feels ready for discharge. Physical Exam Vital Signs: Vital Signs: Last Vital Signs Temp 98.3 F 03/23/22 08:00 Pulse 81 03/23/22 08:00 Resp 18 03/23/22 08:00 BP 181/98 H 03/23/22 08:00 Pulse Ox 98 03/23/22 08:00 BMI result Body Mass Index 27.2 Const: General: comfortable and no acute distress Nutritional Appearance: well nourished Orientation/consciousness: patient oriented x3 Limitations: no limitations Resp: Effort & Inspection: normal respiratory effort and no respiratory distress GI: Other: incision is clean, dry and intact Inspection: Yes normal to inspection Palpation (GI): Soft to palpation, nontender, no guarding and not rigid Skin: General skin exam: no rashes or lesions noted Neuro: General: patient oriented x3 Extrem: General: No edema Objective Data Active Medications Albuterol Sulfate (Albuterol Sulfate 90 Mcg 8 Gm Inhaler) 2 puff INHALE Q6H PRN PRN Reason: Wheezing Enoxaparin Sodium (Enoxaparin Sodium 40 Mg/0.4 Ml Syringe) 40 mg SUBCUT Q24H [facility] Last Admin: 03/23/22 09:30 Dose: Not Given Documented by: COTEMA Non-Admin Reason: Patient Refused Acetaminophen (Ofirmev) 1,000 mg in 100 mls @ 400 mls/hr IV Q6H [facility] Last Admin: 03/23/22 09:30 Dose: 400 mls/hr Documented by: COTEMA Dextrose/Lactated Ringer's ([id number]) 1,000 mls @ 125 mls/hr IVCONT .Q8H [facility] Last Admin: 03/23/22 09:08 Dose: Not Given Documented by: COTEMA Non-Admin Reason: IV Running Morphine Sulfate (Morphine Sulfate 2 Mg/Ml Cartridge) 4 mg IVPUSH Q3H PRN; Protocol PRN Reason: Pain, Severe (Pain Scale 7-10) Omeprazole (Omeprazole 20 Mg Capsule.Dr) 20 mg PO DAILY [facility] Last Admin: 03/23/22 09:30 Dose: 20 mg Documented by: HO.COTEMA Ondansetron HCl (Ondansetron Hcl 4 Mg/2 Ml Vial) 4 mg IVPUSH Q8H PRN PRN Reason: Nausea Oxycodone HCl (Oxycodone Hcl Immed Release 5 Mg Tablet) 5 mg PO Q4H PRN PRN Reason: Pain, Moderate (Pain Scale 4-6 Last Admin: 03/23/22 09:38 Dose: 5 mg Documented by: COTEMA Pharmacy Consult (Consult Rx Perform Med Rec) 1 each MISCELLANE ONCE PRN PRN Reason: Consult order Sodium Chloride (0.9 % Sodium Chloride Flush 3 Ml Syringe) 3 ml IVFLUSH QSHIFT [facility] Last Admin: 03/23/22 07:22 Dose: Not Given Documented by: COTEMA Non-Admin Reason: IV Running Zolpidem Tartrate (Zolpidem Tartrate 5 Mg Tablet) 5 mg PO BEDTIME PRN PRN Reason: Insomnia Last Admin: 03/22/22 21:49 Dose: 5 mg Documented by: LIANET Labs CBC & Chem 7: 03/22/22 05:23 03/22/22 05:23 Procedures Date of Service Date of Service: 03/23/22 Progress Note: A&P Assessment and plan (1) History of colostomy reversal: Status: Acute Plan POD #2, tolerating a regular diet, +BM yesterday, wounds clean and intact. She is ambulating independently. Will discharge to home with follow up in office in one week. She should call for nausea, vomiting, fever, chills, constipation, bleeding or other concerns. Time Spent With Patient Time: Total time spent is greater than 50% in coordination of care (as documented) at patient's floor/unit and/or counseling patient: Quality Stroke Does the patient have a stroke diagnosis?: No VTE Prior VTE?: No VTE Risk Level:: Surgical - moderate VTE Device Contraindication: N/A - Device Ordered VTE Drug Contraindication: N/A - Med Ordered
--- NOTE | 2022-03-23 13:45 | PM.DS ---
DS: Providers Provider Date of Service: 03/23/22 Date of admission: 03/21/22 06:07 Primary care physician: Kate Ramos MD Attending physician on admission: Jorge Marrero Attending physician on discharge: Jorge Marrero DS: Diagnosis Discharge Diagnosis (1) History of colostomy reversal: Status: Acute DS: Summary Hospital Course Hospital Course: BRIEF HPI: 41-year-old female patient with a previous history of perforated sigmoid diverticulitis status post sigmoid resection and Ileana procedure returning today for reversal of colostomy. HOSPITAL COURSE: On 03/21/22 a reversal of colostomy was performed by Dr. Marrero without complication. The patient tolerated the procedure well, completed recovery in PACU and was admitted to the med/surgical floor for observation. The patient had an uncomplicated recovery course. On POD #1, she was tolerating clear liquid diet without nausea or vomiting. Her pain was well controlled. She was ambulating. Her abdomen was benign with appropriate post op tenderness. She was advanced to a low residue diet. On POD #2, she was passing flatus and had a nonbloody bowel movement. She was tolerating the solid diet without worsening abd pain, nausea or vomiting. She was comfortable with good pain control on PO analgesics. Her abdomen remained benign with clean incision. She felt ready for discharge. She was discharged to home on 03/23/22 in stable condition. She is to follow up with Dr. Marrero in office in 1 week. Status at Discharge Functional status at discharge: independent ambulation Overall status at discharge: patient is progressing back to baseline Time Spent with Patient Time attestation: Total time spent providing and/or coordinating discharge services: Discharge coordination time: Greater than 30 minutes Quality: Safe Use of Opioids Does Pt have an Active Cancer Diagnosis on the Problem List?: No Quality: Stroke Does the patient have a stroke diagnosis?: No Physical Exam Vital Signs: Vital Signs: Last Vital Signs Temp 98.3 F 03/23/22 08:00 Pulse 81 03/23/22 08:00 Resp 18 03/23/22 08:00 BP 181/98 H 03/23/22 08:00 Pulse Ox 98 03/23/22 08:00 BMI result Body Mass Index 27.2 Const: General: comfortable, no acute distress and alert Orientation/consciousness: patient oriented x3 Resp: Effort & Inspection: normal respiratory effort Cardio: Rate: regular rate GI: Inspection: No distended and Yes incision (clean) Palpation (GI): Soft to palpation, Tenderness to palpation present (GI) (incisional), no guarding and not rigid Percussion: Yes normal to percussion Skin: General skin exam: no rashes or lesions noted Neuro: General: patient oriented x3 Extrem: General: Yes no clubbing, cyanosis or edema DS: Data Data Completed and Pending Completed studies during hospitalization [Text1]: 03/21/22 09:37 Surgical [PTH] Routine A.? Colostomy, reversal:? Enterocutaneous tissue with chronic inflammation consistent with colostomy. B.? Rectum, excision:? Rectum within normal limits. C.? Colon, EEA ring, excision:? Colon within normal limits. Procedures Bypass Sigmoid Colon to Cutaneous, Percutaneous Endoscopic Approach (01/19/22) Drainage of Peritoneal Cavity, Percutaneous Endoscopic Approach (01/19/22) Excision of Sigmoid Colon, Percutaneous Endoscopic Approach (01/19/22) Resection of Appendix, Percutaneous Endoscopic Approach (01/19/22) Discharge Plan Discharge Patient Disposition: Home, Self-Care Discharge Diagnosis: s/p closure of colostomy Referrals: Kate Ramos MD [Primary Care Provider] - 1 Week Jorge Marrero MD [Physician] - 1 Week Discharge Medications: New oxycodone 5 mg Tablet 5 mg PO Q4H PRN (Reason: Pain, Moderate (Pain Scale 4-6) Qty: 15 0RF acetaminophen [Tylenol Extra Strength] 500 mg tablet 500 mg PO Q6H PRN (Reason: pain, fever) Qty: 30 0RF Continued pantoprazole 40 mg tablet,delayed release (DR/EC) 40 mg PO DAILY Qty: 90 0RF albuterol sulfate [ProAir HFA] 90 mcg/actuation Hfa Aerosol Inhaler 2 puff INHALATION Q6H PRN (Reason: Wheezing) 0RF Discharge Orders: Discharge Order (Routine); Ordered 03/23/22 Ordered By: Jorge Marrero Diet: advance to usual diet Activity on Discharge: No heavy lifting Stand Alone Forms: Patient Portal Discharge page, Work/School Release Care Plan Goals: return to normal diet and activity Health Concerns: perforated diverticulitis Plan of Treatment: closure of colostomy Assessment: perforated diverticulitis, s/p ileana's procedure Discharge Date/Time: 03/23/22 11:16
--- NOTE | 2022-03-23 13:47 | MHC.CM.PN ---
Addendum entered by Keren Dong RN 03/23/22 13:49: PT DECLINED NEED FOR VNA. Original Note: PT MEDICALLY CLEARED FOR D/C HOME SELF-CARE, PT ARRANGED TRANSPORT.
== END 2022-03-23 11:16 | disposition home or self-care (01) | DRG 223 ==
LOC: HO.SSSA 10:28 → HO.S3 12:39
PROVIDERS: Nurse Practitioner; Admitting Provider Surgery; PCP Internal Medicine; Visit Provider Surgery
PROC: 0DSM0ZZ Reposition Descending Colon, Open Approach (ICD-10-PCS; CPT 44620; principal; 2022-03-21 07:30)
DX: Z43.3 Encounter for attention to colostomy (principal); J45.909 Unspecified asthma, uncomplicated; K21.9 Gastro-esophageal reflux disease without esophagitis; Z20.822 Contact with and (suspected) exposure to COVID-19; Z79.899 Other long term (current) drug therapy
CPT/HCPCS: 36415; 80048; 81025; 85025; 87635; 88304; 88305; 88307; 99024; C1758; J0131; J1100; J1170; J1650; J2250; J2405; J2550; J3010

== ENCOUNTER → 2022-04-01 09:15 | Outpatient (BNVA) | payer BC, SELFPAY | PROVIDERS: PCP Internal Medicine; Referring Provider Internal Medicine; Visit Provider Surgery | DX: K57.92 Diverticulitis of intestine, part unspecified, without perforation or abscess without bleeding (principal) ==

== ENCOUNTER 2022-05-04 08:40 | Outpatient (REF) | payer BC, SELFPAY ==
--- NOTE | ~2022-05-04 | MM_ITS ---
EXAMINATION: MM SCREENING DIGITAL BREAST TOMOSYNTHESIS, BILATERAL CLINICAL INFORMATION: Screening. Asymptomatic. The lifetime risk of breast cancer based on the Tyrer-Cuzick Model is 7%. COMPARISON: Mammography: 11/27/2020 (baseline) TECHNIQUE: Digital breast tomosynthesis is performed in both the craniocaudal and mediolateral oblique views along with computer-aided detection (CAD). Synthesized 2D images are generated from the tomosynthesis. FINDINGS: The breasts are heterogeneously dense, which may obscure small masses (ACR BI-RADS breast composition Category c). No significant changes from baseline exam. There are no significant masses, abnormal calcifications, or other abnormalities. The axilla and skin contours are unremarkable. MM/MM tomosynthesis screening BI IMPRESSION: No mammographic evidence of malignancy. ASSESSMENT: BI-RADS 1: Negative RECOMMENDATION: Routine annual mammography screening. This patient's information was entered into a reminder system with a target due date for their next mammogram.
== END 2022-05-04 08:41 | disposition home or self-care (01) ==
LOC: HO.MAMMO 08:40
PROVIDERS: Visit Provider Psychiatry & Neurology Neurology
DX: Z12.31 Encounter for screening mammogram for malignant neoplasm of breast (principal)
CPT/HCPCS: 77063; 77067

== ENCOUNTER 2022-09-16 15:43 | Outpatient (REF) | payer BC, SELFPAY ==
[2022-09-16 16:13] LABS: Hematocrit 40.7 % (37.0-47.0); Hemoglobin 13.3 g/dl (12.0-16.0); Mean Corpuscular HGB Conc 32.7 g/dl (31.0-35.0); Mean Corpuscular Hemoglobin 28.9 pg (27.0-33.0); Mean Corpuscular Volume 88.3 fL (80.0-98.0); Mean Platelet Volume 11.5 fL (9.4-12.3); Platelet Count 285 X10*3/uL (160-400); Red Blood Count 4.61 X10*6/uL (4.20-5.50); Red Cell Distribution Width 12.5 % (11.0-16.0); White Blood Count 6.2 X10*3/uL (4.8-10.8)
[2022-09-16 16:36] LABS: Iron 53 mcg/dL (30-160); Percent Iron Saturation 13 % (15-50); Total Iron Binding Capacity 399 mcg/dL (228-428); Unsaturated Iron Binding 346 ug/dL
[2022-09-16 16:56] LABS: Ferritin 35 ng/mL (10-250)
== END 2022-09-16 15:44 | disposition home or self-care (01) ==
LOC: HO.LAB 15:43
PROVIDERS: PCP Internal Medicine; Visit Provider Internal Medicine
DX: K62.5 Hemorrhage of anus and rectum (principal)
CPT/HCPCS: 36415; 82728; 83540; 85027

== ENCOUNTER 2022-09-21 10:02 | Day surgery (SDC) | payer BC, SELFPAY ==
--- NOTE | 2022-09-20 12:08 | P.CONAN_ITS ---
HPI - Anesthesia Eval Consult details Narrative: 42yo F for Colonoscopy s/p colostomy closure 03/2022 [facility] Active Problems Active Problems: All Active Problems (Updated 09/20/22 @ 11:56 by Kate Ramos MD) Depression with anxiety (Acute) Ear disorder (Acute) Rectal bleeding (Acute) Blepharitis of eyelid of right eye (Acute) Conjunctivitis (Acute) Contact dermatitis (Acute) Chronic GERD (Acute) Overweight (BMI 25.0-29.9) (Acute) Encounter for general adult medical examination with abnormal findings (Acute) Alcoholism (Acute) Diverticulitis (Acute) Past Medical History Medical History Acute abdomen Allergy-induced asthma Diverticulitis Diverticulitis of intestine with perforation and abscess GERD (gastroesophageal reflux disease) Family History Family History Father HTN (hypertension) History of CVA (cerebrovascular accident) Mother No problems noted. Maternal Grandfather Myocardial infarction Paternal Grandfather Myocardial infarction Brother No problems noted. Sister No problems noted. Daughter No problems noted. Daughter No problems noted. Family history of problems with anesthesia: No Surgical History Surgical History History of appendectomy (02/03/22) History of colostomy reversal (03/21/22) Hx of colonoscopy Hx of esophagogastroduodenoscopy Status post Zana's procedure History of Problems with Anesthesia: No Social History Social History Household Members: Spouse and Family Household Members Other:: Mother and children Housing: House Are you a primary health care law specialist to a significant other at home: No Do you presently have visiting nurse or other home services: Yes (Mary WALKERA- since Sx 01/2022) Patient Tobacco Use Status: Former Tobacco user Quit Date: 01/2022 Tobacco use type: Cigarette Cigarette Packs Per Day: 0.25 Cigarettes Per Day: 5.0 Years Smoked: 25 e-Cigarette/Vaping Use: Never Used service: No Current occupational status: employed Cognitive needs: No Hearing needs: No Vision needs: No Meds Allergies Allergy/AdvReac Type Severity Reaction Status Date / Time No Known Allergies Allergy Verified 09/30/22 14:01 [No Known Allergies*] Exam Exam Date and Time: September 20, 2022 1208 Pertinent Lab Results Pertinent Lab Results: Laboratory Tests 03/22/22 09/16/22 05:23 15:54 WBC 6.2 Hgb 13.3 Hct 40.7 Plt Count 285 Sodium 136 Potassium 4.1 Chloride 104 Carbon Dioxide 25 BUN 6 L Creatinine 0.65 Assessment and Plan Assessment Anesthesia Assessment: Chart Reviewed Final Anesthetic Review Family History of Problems with Anesthesia: No History of Problems with Anesthesia: No
[2022-09-21 10:23] VITALS: BMI 28.7
[2022-09-21 10:38] VITALS: BP 166/94; PULSE 71; RESP 15; TEMP 37; O2SAT 97
[2022-09-21 10:44] LABS: UPreg QC Valid YES; Urine Pregnancy NEGATIVE (NEGATIVE)
[2022-09-21] MEDS: Lactated Ringers 1,000 ML 100 ML IVCONT (10:49)
--- NOTE | 2022-09-21 11:36 | MHC.SHP ---
Pre-Procedural Eval Section A Date of Service: 09/21/22 The patient is an INPATIENT: No The History & Physical has been completed within 30 days and I have reviewed it.: Yes Section B Chief Complaint: rectal bleeding Allergies: Allergies Allergy/AdvReac Type Severity Reaction Status Date / Time No Known Allergies Allergy Verified 09/20/22 11:34 [No Known Allergies*] Plan Diagnosis/Plan: Unchanged I have reviewed the history and physical and performed a pertinent physical examination on my patient. No changes have occurred unless specified.
--- NOTE | 2022-09-21 11:36 | P.OP_ITS ---
Operative Note Operative Note Date of Service: 09/21/22 Narrative: Procedure: Colonoscopy Indication: Lower GI bleeding Endoscopist: Abril Vickers MD Anesthesia Provider: Dr Arnold Martel Anesthesia type: MAC Instrument: Olympus CF-[id number] Consent: Indication, risks vs benefits, and alternatives were discussed with the patient who gave written informed consent to proceed. EKG, pulse, pulse oximetry and blood pressure were monitored throughout the procedure. Please see anesthesia flowsheet. Procedure: The patient was brought to the procedure room and placed in the left lateral decubitus position. IV medications were administered by the anesthesia provider in attendance. A digital rectal exam was performed which was abnormal due to finding of hemorrhoids. The colonoscope was then inserted through the anus and advanced through the colon to the cecum at 70 cm. Mucosa was carefully examined under high definition white light as the instrument was slowly withdrawn in a retrograde panoramic fashion. Retroflexion was performed in ascending colon and rectum. The procedure was not difficult. There were no immediate obvious complications. The quality of the prep was BBPS: 3+3+3 = excellent Withdrawal time 12 minutes. Limitations: No limitations. Findings: Mucosa: Normal to cecum. Evidence of previous surgery in rectosigmoid colon with side to end anastomosis. Some suture material was visible around the anastomosis. Protruding lesions * Large internal and external hemorrhoids with stigmata of recent bleeding. Impression: 1. Normal colon mucosa. Surgical anastomosis. 2. Large hemorrhoids with stigmata of recent bleeding Recommendations: - Bleeding likely from hemorrhoids. Recommend sitz baths, increase fiber intake, anusol suppositories. - Repeat colonoscopy in 10 years for colorectal screening.
[2022-09-21 12:16] VITALS: BP 120/80; PULSE 76; RESP 15; TEMP 36.9; O2SAT 97
[2022-09-21 12:40] VITALS: BP 144/90; PULSE 63; RESP 16; TEMP 36.9; O2SAT 98
== END 2022-09-21 13:05 | disposition home or self-care (01) ==
PROVIDERS: Nurse Practitioner; PCP Internal Medicine; Visit Provider Internal Medicine
PROC: 0DJD8ZZ Inspection of Lower Intestinal Tract, Via Natural or Artificial Opening Endoscopic (ICD-10-PCS; CPT 45378; principal; 2022-09-21 11:00)
DX: K62.5 Hemorrhage of anus and rectum (principal); Z87.19 Personal history of other diseases of the digestive system; Z90.49 Acquired absence of other specified parts of digestive tract; Z98.0 Intestinal bypass and anastomosis status; K64.8 Other hemorrhoids; K64.4 Residual hemorrhoidal skin tags; K21.9 Gastro-esophageal reflux disease without esophagitis; J45.909 Unspecified asthma, uncomplicated; Z79.899 Other long term (current) drug therapy; Z87.891 Personal history of nicotine dependence
CPT/HCPCS: 45378; 81025

== ENCOUNTER 2023-09-06 14:17 | Outpatient (AMB) | payer BC, SELFPAY ==
[2023-09-06 14:22] VITALS: BP 132/82; PULSE 87; O2SAT 98; BMI 29.5
--- NOTE | 2023-09-06 14:22 | MHC.PC.OV ---
Vital Signs 09/06/23 14:22 Height 5 ft 2 in Weight 161 lb 2 oz BMI 29.5 BP 132/82 Blood Pressure Location Rt brachial Position Sitting Pulse 87 Pulse Source Pulse Oximeter Pulse Oximetry (%) 98 Oxygen Delivery Method Room Air Intake Visit Reasons: Headaches/ SOB/ Bp Allergies No Known Allergies [No Known Allergies*] Allergy (Verified 09/06/23 14:24) Medication List - Last Reconciled 09/06/23 by Kate Ramos MD lorazepam 0.5 mg PO DAILY 2 days omeprazole 20 mg PO DAILY Tobacco use date assessed: 09/06/23 Dental Screening Dental Screen Date: 09/06/23 Did you have a dental visit in the last 12 months?: Yes Did you have a dental problem in the last 6 months where you did not have access to dental care?: No Was dental information given to patient?: Patient has dentist HPI Headaches/ SOB/ Bp HPI Details Patient is 43-year-old female who was last seen March of this year came in with a chief complaint of fluctuating blood pressure Patient has been under lot of stress due to her dog being very sick Patient says that her blood pressure has been shooting up to 160s systolic And she feels headache in throbbing when that happens. She also has been having some shortness of breath and felt chest discomfort EKG done today shows heart rate of 65 beats per minute normal sinus rhythm There is are are better in need to but no acute ST-T abnormality I have ordered echocardiogram for the patient I am also starting her on atenolol 25 mg I see that her blood pressure has been elevated couple of times in office as well in the past She admit that she is feeling depressed as well. Patient is requesting 2 tablets of lorazepam for flying next month, she is terrified of planes. She will return September 26 for physical examination Meanwhile I have ordered labs for patient to be done fasting. She does not have any chest pain at this time Complaining of itching in her eyes and burning sensation for past few days Patient does have allergies as well. There is no blurring of vision or discharge from the eye [facility] Medical History Allergy-induced asthma Diverticulitis of intestine with perforation and abscess GERD (gastroesophageal reflux disease) Acute abdomen Diverticulitis Surgical History Hx of colonoscopy History of colostomy reversal (03/21/22) Hx of esophagogastroduodenoscopy History of appendectomy (02/03/22) Status post Zana's procedure Family History Father HTN (hypertension) History of CVA (cerebrovascular accident) Mother No problems noted. Maternal Grandfather Myocardial infarction Paternal Grandfather Myocardial infarction Brother No problems noted. Sister No problems noted. Daughter No problems noted. Daughter No problems noted. Social History Household Members: Spouse and Family Household Members Other:: Mother and children Housing: House Are you a primary healthcare insurance sales agent to a significant other at home: No Do you presently have visiting nurse or other home services: Yes ([facility]- since Sx 01/2022) Patient Tobacco Use Status: Former Tobacco user Quit Date: 01/2022 Tobacco use type: Cigarette Cigarette Packs Per Day: 0.25 Cigarettes Per Day: 5.0 Years Smoked: 25 Packs Per Year: 6 Packs per year/per ci.25 e-Cigarette/Vaping Use: Never Used service: No Current occupational status: employed Cognitive needs: No Hearing needs: No Vision needs: No Questionnaire PHQ-9 Over the last 2 weeks, how often have you been bothered by any of the following problems? 1. Little interest or pleasure in doing things: several days 2. Feeling down, depressed, or hopeless: several days 3. Trouble falling or staying asleep, or sleeping too much: several days 4. Feeling tired or having little energy: several days 5. Poor appetite or overeating: several days 6. Feeling bad about yourself - or that you are a failure or have let yourself or your family down: several days 7. Trouble concentrating on things, such as reading the newspaper or watching television: not at all 8. Moving or speaking so slowly that other people could have noticed. Or the opposite - being so fidgety or restless that you have been moving around a lot more than usual: not at all 9. Thoughts that you would be better off or of hurting yourself in some way: not at all Total score: 6 Depression Screening Interpretation: Negative Depression Screening Done: Yes 22736 - PHQ-9 Billing: Yes Source: Developed by Drs. Louis Gonzalez, Rex Carpio and colleagues, with an educational easton from [employer]. Thrive Questionnaire Date Thrive assessed: 09/20/22 AUDIT C Alcohol Use Questionnaire (AUDIT-C) 1. How often do you have a drink containing alcohol?: Monthly or less 2. How many drinks containing alcohol do you have on a typical day when you are drinking?: 1 or 2 3. How often do you have six or more drinks on one occasion?: Never Total Score: 1 Score Reviewed/Action Taken: No MICAELA-7 AMB Questionnaire MICAELA-7 Date MICAELA - 7 assessed: 09/20/22 Source: Developed by Drs. Louis Gonzalez, Rex Carpio and colleagues, with an educational easton from [employer]. Review of Systems Const Denies chills, Denies excessive sweating, Denies fever(s) and Denies poor appetite Eyes Denies eye pain ENT Denies disequilibrium, Denies sore throat, Denies throat swelling and Denies tongue swelling Card Denies radiating jaw, neck or arm pain and Denies paroxysmal nocturnal dyspnea Resp Denies cough and Denies hemoptysis GI Denies melena, Denies change in stool character, Denies coffee ground emesis and Denies vomiting Musc Reports as per HPI Skin/Breast Reports as per HPI Neuro Denies tremor(s) and Denies disequilibrium Endo Denies cold intolerance and Denies excessive sweating Aller/Immun Denies throat swelling and Denies tongue swelling Physical exam (Primary Care) Vital Signs: Last Vital Signs Pulse 87 09/06/23 14:22 BP 132/82 09/06/23 14:22 Pulse Ox 98 09/06/23 14:22 Oxygen Delivery Method Room Air 09/06/23 14:22 BMI result Body Mass Index 29.5 Tobacco/Smoking Status: Tobacco use Status Tobacco use date assessed 09/06/23 09/06/23 14:25 Patient Tobacco Use Status Former Tobacco user 09/06/23 14:23 Tobacco use type Cigarette 09/06/23 14:23 e-Cigarette/Vaping Use Never Used 09/06/23 14:23 PHQ-9: PHQ-9 Score PHQ-9: Total score 6 09/06/23 14:50 Depression Screening Interpretation: Negative Thrive Assessment: Date of Thrive Assessment Date Thrive assessed 09/20/22 09/06/23 14:23 Const General: cooperative, comfortable and no acute distress Orientation/consciousness: patient oriented x3 HENMT Head: Yes normocephalic and Yes atraumatic Ears: hearing grossly normal bilaterally Eyes Other: Both eyes conjunctiva slightly injected without any discharge, no photophobia no pain with palpation General: appearance normal, both eyes and all related structures Neck Neck: Yes no lymphadenopathy and No tracheal deviation Resp Effort & Inspection: normal respiratory effort, able to speak in complete sentences and no audible wheezes Cardio Rhythm: regular rhythm Heart sounds: S1 normal heart sound present and S2 normal heart sound present GI Palpation (GI): Soft to palpation and nontender Auscultation: normal bowel sounds Skin General skin exam: turgor normal Neuro General: patient oriented x3 and moves all extremities Gait exam (Neuro): Normal gait present Extrem Right lower extremity: no edema Left lower extremity: no edema Psych Affect: normal affect Attitude: cooperative Office Procedures EKG [id number], Complete Assessment and Plan Assessment & Plan (1) Chest pain: Code(s): R07.9 - Chest pain, unspecified Qualifiers: Chest pain type: precordial pain Qualified Code(s): R07.2 - Precordial pain (2) Abnormal EKG: Code(s): R94.31 - Abnormal electrocardiogram [ECG] [EKG] (3) Major depression, recurrent: Code(s): F33.9 - Major depressive disorder, recurrent, unspecified Qualifiers: Active/Remission status: currently active Major depression episode severity: moderate Qualified Code(s): F33.1 - Major depressive disorder, recurrent, moderate (4) Hypertension, essential: Code(s): I10 - Essential (primary) hypertension (5) Tired: Code(s): R53.83 - Other fatigue (6) Shortness of breath: Code(s): R06.02 - Shortness of breath (7) Sleeping difficulty: Code(s): G47.9 - Sleep disorder, unspecified (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 She also has been having some shortness of breath and felt chest discomfort EKG done today shows heart rate of 65 beats per minute normal sinus rhythm There is are are better in need to but no acute ST-T abnormality I have ordered echocardiogram for the patient I am also starting her on atenolol 25 mg I see that her blood pressure has been elevated couple of times in office as well in the past She admit that she is feeling depressed as well. Patient is requesting 2 tablets of lorazepam for flying next month, she is terrified of planes. She will return September 26 for physical examination Meanwhile I have ordered labs for patient to be done fasting. She does not have any chest pain at this time Complaining of itching in her eyes and burning sensation for past few days Patient does have allergies as well. There is no blurring of vision or discharge from the eye Orders: Orders Complete Blood Count Auto Diff Today F33.9 - Major depressive disorder, recurrent, unspecified, I10 - Essential (primary) hypertension, R53.83 - Other fatigue Lipid Panel Today F33.9 - Major depressive disorder, recurrent, unspecified, I10 - Essential (primary) hypertension, R53.83 - Other fatigue Vitamin B12 Today F33.9 - Major depressive disorder, recurrent, unspecified, I10 - Essential (primary) hypertension, R53.83 - Other fatigue TSH reflex Free T4 Today F33.9 - Major depressive disorder, recurrent, unspecified, I10 - Essential (primary) hypertension, R53.83 - Other fatigue CA echo transthoracic complete Today I10 - Essential (primary) hypertension, R94.31 - Abnormal electrocardiogram [ECG] [EKG] AMB EKG-In Office Today R07.9 - Chest pain, unspecified Comprehensive [place]. Panel Fast Today F33.9 - Major depressive disorder, recurrent, unspecified, I10 - Essential (primary) hypertension, R53.83 - Other fatigue Vitamin D 25-OH (D2 and D3) Today F33.9 - Major depressive disorder, recurrent, unspecified, I10 - Essential (primary) hypertension, R53.83 - Other fatigue Medications: New naphazoline-pheniramine 0.025-0.3 % (Naphcon-A) 1 drp ophthalmic (eye) BID-QID PRN 15 mL 0RF Itchy eyes 30 days atenolol 25 mg PO DAILY 30 tabs 0RF Refilled lorazepam 0.5 mg PO DAILY 2 tabs 0RF anxiety 2 days Coding Level of Care Code Est Pt Level 5 (97394) Diagnoses Precordial pain R07.2 Chest pain type: precordial pain Abnormal EKG R94.31 Moderate episode of recurrent major depressive disorder F33.1 Active/Remission status: currently active Major depression episode severity: moderate Hypertension, essential I10 Tired R53.83 Shortness of breath R06.02 Sleeping difficulty G47.9 Flying phobia F40.243 Allergic conjunctivitis of both eyes H10.13 Laterality: bilateral CPT Codes EKG - CPT: 99931-[id number], Complete ([id number]) Time Spent (min) 45 Comment 5 prep, 30 patient, 10 charting coordination of care
== END 2023-09-06 14:48 | disposition home or self-care (01) ==
PROVIDERS: PCP Internal Medicine; Visit Provider Internal Medicine
DX: R07.2 Precordial pain (principal); R94.31 Abnormal electrocardiogram [ECG] [EKG]; F33.1 Major depressive disorder, recurrent, moderate; I10 Essential (primary) hypertension; R53.83 Other fatigue; R06.02 Shortness of breath; G47.9 Sleep disorder, unspecified; F40.243 Fear of flying; H10.13 Acute atopic conjunctivitis, bilateral
CPT/HCPCS: 93000; 99215

== ENCOUNTER 2023-09-07 10:12 | Outpatient (REF) | payer BC, SELFPAY ==
[2023-09-07 13:17] LABS: MANUAL DIFF FLAG NO
[2023-09-07 13:37] LABS: Basophils Absolute Auto 0.1 X10*3/uL (0.0-0.2); Basophils Percent Auto 0.8 % (0-2); Eosinophils Absolute Auto 0.1 X10*3/uL (0.0-0.4); Eosinophils Percent Auto 1.4 % (0-4); Hematocrit 41.6 % (37.0-47.0); Hemoglobin 13.9 g/dl (12.0-16.0); Imm Gran Abs Auto 0.02 X10*3/uL (0.00-0.03); Imm Gran Pct Auto 0.3 % (0.0-0.4); Lymphocytes Absolute Auto 2.3 X10*3/uL (1.2-4.9); Lymphocytes Percent Auto 35.9 % (20-40); Mean Corpuscular HGB Conc 33.4 g/dl (31.0-35.0); Mean Corpuscular Hemoglobin 28.7 pg (27.0-33.0); Mean Platelet Volume 11.5 fL (9.4-12.3); Monocytes Absolute Auto 0.4 X10*3/uL (0.1-1.2); Monocytes Percent Auto 6.5 % (2-11); Neutrophils Absolute Auto 3.6 x10*3/uL (2.0-8.3); Neutrophils Percent Auto 55.1 % (45-73); Platelet Count 267 X10*3/uL (160-400); Red Blood Count 4.84 X10*6/uL (4.20-5.50); Red Cell Distribution Width 12.2 % (11.0-16.0); White Blood Count 6.5 X10*3/uL (4.8-10.8)
[2023-09-07 14:15] LABS: Alanine Aminotransferase 25 U/L (0-31); Albumin Level 4.5 g/dL (3.5-5.0); Alkaline Phosphatase 60 U/L (39-117); Anion Gap 13 (12-20); Aspartate Amino Transferase 17 U/L (5-31); Bilirubin Total 0.4 mg/dL (0.0-1.0); Blood Urea Nitrogen 14 mg/dL (9-16); Calcium 9.8 mg/dL (8.4-10.2); Carbon Dioxide 26 mmol/L (22-29); Chloride 103 mmol/L (96-108); Cholesterol 221 mg/dL (<200); Estimated Glomerular Filt Rate > 60; Glucose Fasting 113 mg/dL (60-99); HDL Cholesterol 59 mg/dL (>40); LDL Cholesterol Calculated 139 mg/dL (<100); Sodium 138 mmol/L (135-145); TSH reflex Free T4 1.23 uIU/mL (0.32-4.0); Total Protein 7.5 g/dL (6.5-8.0); Triglycerides 119 mg/dL (<150)
[2023-09-07 14:16] LABS: Vitamin B12 558 pg/mL (200-900)
[2023-09-11 14:48] LABS: Vitamin D 25-OH, D2 <4 ng/mL; Vitamin D 25-OH, D3 22 ng/mL; Vitamin D 25-OH, Total 22 ng/mL (30-100)
== END 2023-09-07 10:13 | disposition home or self-care (01) ==
LOC: HO.HMGCLDS 10:12
PROVIDERS: PCP Internal Medicine; Visit Provider Internal Medicine
DX: F33.9 Major depressive disorder, recurrent, unspecified (principal); I10 Essential (primary) hypertension
CPT/HCPCS: 36415; 80053; 80061; 82306; 82607; 84443; 85025

== ENCOUNTER → 2023-10-04 10:48 | Outpatient (REF) | payer BC, SELFPAY ==
--- NOTE | 2023-10-04 10:50 | CA_ITS ---
Transthoracic Echocardiogram Patient (Last, First, Middle): Abby Whatley A Gender: Female Date of : 1980 Age: 43 Procedure Date: 10/04/2023 Procedure Type: Transthoracic Echocardiogram Location: OP Height: 157.48 cm Weight: 72.12 kg BSA: 1.73 m2 Heart Rate: bpm BP: 140 / 80 mmHg Satin Finisher: NOLVIA/JAK Referring MD: Kate Ramos MD Symptoms: I10 - Essential (primary) hypertension Study Quality: Adequate ECG Rhythm: Sinus Conclusions: - The left ventricular systolic function is normal. The calculated ejection fraction is 60% by biplane method. - No obvious valvular pathology seen on this study. Findings Left Ventricle Normal left ventricular cavity size. The left ventricular systolic function is normal. The calculated ejection fraction is 60% by biplane method. There is no evidence of regional wall motion abnormalities. Diastolic function is normal for age. There is mild septal asymmetric hypertrophy. LV peak GLS 20.5%. Right Ventricle Normal right ventricular cavity size and systolic function. Atria Both atria are normal in size. Aortic Valve There is a normal trileaflet aortic valve. There is no aortic valve stenosis. There is no aortic valve regurgitation. Mitral Valve The mitral valve appears normal. There is trace mitral valve regurgitation. There is no mitral valve stenosis. Pulmonic Valve The pulmonic valve is likely normal. Tricuspid Valve Normal tricuspid valve structure. There is trace tricuspid valve regurgitation. Tricuspid regurgitation envelope is inadequate for calculation of right ventricular systolic pressure. Great Vessels The asc aorta and aortic arch are normal in size. Venous The inferior vena cava is normal in size and collapses greater than 50% with inspiration. Pericardium/Pleural There is no evidence of pericardial effusion. Prior Study Comparison No prior study available for comparison. Recommendations, Care & Conclusions No obvious valvular pathology seen on this study. Measurements 2D Linear Measurements IVSd: 1.27 0.6-0.9/0.6-1.0 cm LVIDd: 4.51 3.9-5.3/4.2-5.9 cm LVIDd Index: 2.61 2.4-3.2/2.2-3.1 cm/m2 LVIDs: 3.33 2.0-3.6 cm LVPWd: 0.99 0.7-1.1 cm LA Diam: 3.80 2.7-3.8/3.0-4.0 cm LAIDs Index: 2.20 1.5-2.3 cm/m2 LV Mass: 227.44 67-162/88-224 g LV Mass Index: 131.47 43-95/49-115 g/m2 LVOT Diam: 2.00 3.0+(-)1.3 cm 2D Systolic Function EF 4C: 60.90 >55% EF 2C: 63.00 >55% EF BiP: 60.00 >55% Mitral Valve MV Pk E: 0.79 MV PK A: 0.60 MV Decel Time: 257.00 E/A: 1.30 E'Lateral: 8.16 E'Medial: 6.31 E/E' Med: 12.50 E/E' Lat: 9.70 PHT: 75.00 MVA PHT: 2.93 Decel [place]: 3.07 Aortic Valve AoV Pk Bladimir: 1.22 AoV Mn Bladimir: 0.86 AoV VTI: 0.33 AoV Pk Grad: 6.00 Aov Mn Grad: 3.00 CHAVO Cont.VTI: 2.35 LVOT LVOT Pk Bladimir: 0.95 LVOT Mn Bladimir: 0.71 LVOT VTI: 0.24 LVOT Pk Grad: 4.00 LVOT Mn Grad: 2.00 LVOT Diam: 2.00 LVOT Area: 3.14 Diastolic Function MV Pk E: 0.79 MV Pk A: 0.60 E/A: 1.30 E'Medial: 6.31 E/E' Med: 12.50 E' Laterial: 8.16 E/E' Lat: 9.70 Right Ventricle TAPSE (mm): 23.00 TVS' Bladimir: 11.30 Tricuspid Valve RA Press: 3.00 Great Vessels Aorta Sinus of Valsalva: 3.32 2.0-3.[address] [place]: 2.75 1.7-3.4 cm Ao Asc: 3.50 2.1-3.4 cm Ao Arch: 3.00 Updated in Other Vendor System with Status of Final Claudio Ramirez MD electronically signed on 10/06/2023 8:50:32 AM with status of Final
== END ==
LOC: HO.CARD 10:48
PROVIDERS: PCP Internal Medicine; Visit Provider Internal Medicine
DX: I10 Essential (primary) hypertension (principal); R94.31 Abnormal electrocardiogram [ECG] [EKG]
CPT/HCPCS: 93306; 93356

== ENCOUNTER → 2023-10-04 10:50 | Outpatient (BNV) | payer BC, SELFPAY | PROVIDERS: PCP Internal Medicine; Visit Provider Internal Medicine | DX: I10 Essential (primary) hypertension (principal); R94.31 Abnormal electrocardiogram [ECG] [EKG] | CPT/HCPCS: 93306 ==

== ENCOUNTER 2023-10-24 15:22 | Outpatient (AMB) | payer BC, SELFPAY ==
[2023-10-24 15:24] VITALS: BP 130/80; PULSE 70; TEMP 36.3; O2SAT 98; BMI 31.3
--- NOTE | 2023-10-24 15:24 | AM.OFFWIN_ITS ---
Intake Vital Signs 10/24/23 15:24 Height 5 ft 2 in Weight 77.564 kg BMI 31.3 BP 130/80 Blood Pressure Location Rt brachial Position Sitting Pulse 70 Pulse Source Pulse Oximeter Temp 97.4 F Temp Source Temporal Artery Scan Pulse Oximetry (%) 98 Oxygen Delivery Method Room Air Intake Visit Reasons: EP heavy cough chest congestion masked in lobby Intake Note: pt is here today for heavy cough chest congestion started last monday Patient Tobacco Use Status: Former Tobacco user Quit Date: 01/2022 Allergies No Known Allergies [No Known Allergies*] Allergy (Verified 10/24/23 15:25) Do you need a note to return to daycare/school/sports/work: Yes HPI HPI Comments History of Present Illness Details [id number] 43-year-old female presents with fatigue , malaise, dry cough, cough, myalgias ongoing for about 2 weeks not improving. Patient nothing seems to be making this better. Child at home is now starting to get sick. Reports chest discomfort with cough however no chest pain, shortness of breath, fevers, chills, nausea, vomiting, abdominal pain, fevers, chills, headache, dizziness at this time. Eating and drinking well. Physical examination benign. This is likely bronchitis due to length of symptoms, unlikely pneumonia, pulmonary embolism, acute respiratory distress, ACS. Unlikely acei induced cough. Plan at this time will prescribe doxycycline, prednisone, albuterol. Educated patient on diagnosis and treatment plan, answered all question, patient марина de leon understanding. At this time patient will be discharged home, advised to return with new or worsening symptoms. Educated on worrisome signs and symptoms and when to return. At this time I feel comfortable discharge home. [facility] Medical History Allergy-induced asthma Diverticulitis of intestine with perforation and abscess GERD (gastroesophageal reflux disease) Acute abdomen Diverticulitis Surgical History Hx of colonoscopy History of colostomy reversal (03/21/22) Hx of esophagogastroduodenoscopy History of appendectomy (02/03/22) Status post Zana's procedure Family History Father HTN (hypertension) History of CVA (cerebrovascular accident) Mother No problems noted. Maternal Grandfather Myocardial infarction Paternal Grandfather Myocardial infarction Brother No problems noted. Sister No problems noted. Daughter No problems noted. Daughter No problems noted. Social History Household Members: Spouse and Family Household Members Other:: Mother and children Housing: House Are you a primary resident care provider to a significant other at home: No Do you presently have visiting nurse or other home services: Yes ([facility]- since Sx 01/2022) Patient Tobacco Use Status: Former Tobacco user Quit Date: 01/2022 Tobacco use type: Cigarette Cigarette Packs Per Day: 0.25 Cigarettes Per Day: 5.0 Years Smoked: 25 e-Cigarette/Vaping Use: Never Used service: No Current occupational status: employed Cognitive needs: No Hearing needs: No Vision needs: No Review of Systems Const Details: Constitutional : No Weight loss, No Fever, No Chills, + Fatigue, + Malaise ENT/Mouth : No sore throat, No Rhinorrhea Eyes: No Eye Pain, No Swelling, No Redness Cardiovascular : No Chest Pain, No SOB, No Dyspnea on Exertion, No Orthopnea, No Edema, No Palpitations Respiratory : + Cough, No Sputum, No Wheezing Gastrointestinal : No Nausea, No Vomiting, No Diarrhea, No Constipation, No abdominal Pain, No Hematochezia, No Melena Genitourinary : No Dysuria, No Urinary Frequency, No Hematuria, Musculoskeletal : No joint pain, No Myalgias, No Joint Swelling Skin : No Skin Lesions, No rash Neuro : No Weakness, No Numbness, No Dizziness, No Headache Psych : No Anxiety/Panic, No Depression All other systems reviewed and are negative All systems reviewed & are unremarkable except as noted in HPI and below Physical Exam Vital Signs: Last Vital Signs Temp 97.4 F 10/24/23 15:24 Pulse 70 10/24/23 15:24 BP 130/80 10/24/23 15:24 Pulse Ox 98 10/24/23 15:24 Oxygen Delivery Method Room Air 10/24/23 15:24 BMI result Body Mass Index 31.3 vss Appearance: Alert.? Oriented X3.? No acute distress.? Head: Normocephalic, atraumatic, no step-offs or deformities Eyes: Pupils equal, round and reactive to light.? ENT: Pharynx normal.? Neck: Normal inspection.? Neck supple.? CVS: Normal heart rate and rhythm.? Pulses normal.? Respiratory: No respiratory distress.? Breath sounds normal.? Abdomen: Soft and nontender.? Skin: Skin warm and dry.? Normal skin color.? Normal skin turgor.? Extremities: No lower extremity edema.? No calf ttp. 5/5 strength to bilateral upper and lower extremities Back: No midline tenderness, no C-spine tenderness, full range of motion, no CVA tenderness bilaterally Neuro: Oriented X 3.? No motor deficit.? No sensory deficit. CN 2-12 intact Assessment & Plan Assessment & Plan (1) Bronchitis: Code(s): J40 - Bronchitis, not specified as acute or chronic Plan Take your medications as prescribed. If you were prescribed antibiotics today, it is important that you take your medication to their entirety, do not skip any doses, do not finish them early. Follow-up with your primary care provider this week. Return to the emergency department with new or worsening symptoms. Such as fevers, chills, chest pain, shortness of breath, nausea, vomiting, dizziness, headache, vision changes, lethargy In case of emergency call 911 Medications: New prednisone 40 mg (2 x 20 mg) PO DAILY 5 days 10 tabs 0RF albuterol sulfate 90 mcg/actuation 2 puffs inhalation Q6H PRN 6.7 grams 0RF shortness of breath or wheezing benzonatate 100 mg PO BID PRN 14 caps 0RF cough doxycycline hyclate 100 mg PO BID 7 days 14 caps 0RF Coding Level of Care Code Est Pt Level 3 (85691) Diagnoses Bronchitis J40
== END 2023-10-24 16:30 | disposition home or self-care (01) ==
PROVIDERS: PCP Internal Medicine; Visit Provider Physician Assistant
DX: J40 Bronchitis, not specified as acute or chronic (principal)
CPT/HCPCS: 99213

== ENCOUNTER 2023-11-22 13:58 | Outpatient (AMB) | payer BC, SELFPAY ==
[2023-11-22 14:00] VITALS: BP 128/80; PULSE 52; O2SAT 97; BMI 30.3
--- NOTE | 2023-11-22 14:00 | MHC.PC.OV ---
Vital Signs 11/22/23 14:00 Height 5 ft 2 in Weight 165 lb 8 oz BMI 30.3 BP 128/80 Blood Pressure Location Rt brachial Position Sitting Pulse 52 Pulse Source Pulse Oximeter Pulse Oximetry (%) 97 Oxygen Delivery Method Room Air Intake Visit Reasons: blood pressure running high Allergies No Known Allergies [No Known Allergies*] Allergy (Verified 11/22/23 14:00) Medication List - Last Reconciled 11/22/23 by Kate Ramos MD albuterol sulfate 90 mcg/actuation 2 puffs inhalation Q6H PRN atenolol 25 mg PO DAILY lorazepam 0.5 mg PO DAILY 2 days naphazoline-pheniramine 0.025-0.3 % (Naphcon-A) 1 drp ophthalmic (eye) BID-QID PRN 30 days omeprazole 20 mg PO DAILY Tobacco use date assessed: 11/22/23 Dental Screening Dental Screen Date: 11/22/23 Did you have a dental visit in the last 12 months?: Yes Did you have a dental problem in the last 6 months where you did not have access to dental care?: No Was dental information given to patient?: Patient has dentist HPI blood pressure running high HPI Details Patient is a 43-year-old female came in today for follow-up on hypertension Patient was started on atenolol 25 mg She said that she got this morning with systolic blood pressure above 200 so she took her mother's medication Patient does not know the name of this medication. Heart rate is 52, I am not increasing atenolol further I have added hydrochlorothiazide 12.5 mg, patient will continue to monitor her blood pressure at home Echocardiogram done was within normal limit no valvular pathology ejection fraction 65% Depression is stable Patient has cut down on alcohol consumption She will get back to me if there is any issues with hydrochlorothiazide otherwise continue medication Patient have physical exam appointment in February she will do fasting labs before visit. She is also complaining of dizziness off and on. Which is manageable BMI is elevated 30.3 need to lose weight PFSH Medical History Allergy-induced asthma Diverticulitis of intestine with perforation and abscess GERD (gastroesophageal reflux disease) Acute abdomen Diverticulitis Surgical History Hx of colonoscopy History of colostomy reversal (03/21/22) Hx of esophagogastroduodenoscopy History of appendectomy (02/03/22) Status post Zana's procedure Family History Father HTN (hypertension) History of CVA (cerebrovascular accident) Mother No problems noted. Maternal Grandfather Myocardial infarction Paternal Grandfather Myocardial infarction Brother No problems noted. Sister No problems noted. Daughter No problems noted. Daughter No problems noted. Social History Household Members: Spouse and Family Household Members Other:: Mother and children Housing: House Are you a primary resident care associate to a significant other at home: No Do you presently have visiting nurse or other home services: Yes (Mary MADRID- since Sx 01/2022) Patient Tobacco Use Status: Former Tobacco user Quit Date: 01/2022 Tobacco use type: Cigarette Cigarette Packs Per Day: 0.25 Cigarettes Per Day: 5.0 Years Smoked: 25 Packs Per Year: 6 Packs per year/per ci.25 e-Cigarette/Vaping Use: Never Used service: No Current occupational status: employed Cognitive needs: No Hearing needs: No Vision needs: No Questionnaire Thrive Questionnaire Date Thrive assessed: 09/20/22 AUDIT C Alcohol Use Questionnaire (AUDIT-C) 1. How often do you have a drink containing alcohol?: Monthly or less 2. How many drinks containing alcohol do you have on a typical day when you are drinking?: 1 or 2 3. How often do you have six or more drinks on one occasion?: Never Total Score: 1 Score Reviewed/Action Taken: Yes MICAELA-7 AMB Questionnaire MICAELA-7 Date MICAELA - 7 assessed: 09/20/22 Source: Developed by Drs. Louis Gonzalez, Vani Marrufo, Rex Sprague and colleagues, with an educational easton from [employer]. Review of Systems Const Denies chills and Denies fever(s) ENT Denies epistaxis and Denies nasal discharge Card Denies chest pain Resp Denies chest congestion, Denies cough and Denies hemoptysis GI Denies diarrhea and Denies nausea Skin/Breast Denies rash Neuro Reports no additional complaints Psych Reports no additional complaints Endo Reports no additional complaints Physical exam (Primary Care) Vital Signs: Last Vital Signs Pulse 52 11/22/23 14:00 BP 128/80 11/22/23 14:00 Pulse Ox 97 11/22/23 14:00 Oxygen Delivery Method Room Air 11/22/23 14:00 BMI result Body Mass Index 30.3 Tobacco/Smoking Status: Tobacco use Status Tobacco use date assessed 11/22/23 11/22/23 14:02 Patient Tobacco Use Status Former Tobacco user 11/22/23 14:02 Tobacco use type Cigarette 11/22/23 14:02 e-Cigarette/Vaping Use Never Used 11/22/23 14:02 Thrive Assessment: Date of Thrive Assessment Date Thrive assessed 09/20/22 11/22/23 14:02 Const General: cooperative, comfortable and no acute distress Orientation/consciousness: patient oriented x3 HENMT Head: Yes normocephalic Eyes General: appearance normal, both eyes and all related structures Neck Neck: Yes supple Resp Effort & Inspection: normal respiratory effort, no cough and no stridor Cardio Rhythm: regular rhythm Heart sounds: S1 normal heart sound present and S2 normal heart sound present Skin General skin exam: turgor normal Neuro General: patient oriented x3, tone normal and moves all extremities Extrem Right lower extremity: no edema Left lower extremity: no edema Assessment and Plan Assessment & Plan (1) Hypertension, essential: Code(s): I10 - Essential (primary) hypertension (2) Major depression, recurrent: Code(s): F33.9 - Major depressive disorder, recurrent, unspecified Qualifiers: Active/Remission status: currently active Major depression episode severity: moderate Qualified Code(s): F33.1 - Major depressive disorder, recurrent, moderate (3) Dizziness: Code(s): R42 - Dizziness and giddiness (4) Obesity due to excess calories: Code(s): E66.09 - Other obesity due to excess calories Qualifiers: Obesity classification: adult class 1 (BMI 30 - 34.9) Serious obesity comorbidity presence: with serious comorbidity Body mass index: BMI 30.0-30.9 Qualified Code(s): E66.09 - Other obesity due to excess calories; Z68.30 - Body mass index [BMI] 30.0-30.9, adult Plan Patient is a 43-year-old female came in today for follow-up on hypertension Patient was started on atenolol 25 mg She said that she got this morning with systolic blood pressure above 200 so she took her mother's medication Patient does not know the name of this medication. Heart rate is 52, I am not increasing atenolol further I have added hydrochlorothiazide 12.5 mg, patient will continue to monitor her blood pressure at home Echocardiogram done was within normal limit no valvular pathology ejection fraction 65% Depression is stable Patient has cut down on alcohol consumption She will get back to me if there is any issues with hydrochlorothiazide otherwise continue medication Patient have physical exam appointment in February she will do fasting labs before visit. She is also complaining of dizziness off and on. Which is manageable BMI is elevated 30.3 need to lose weight Orders: Orders Lipid Panel Today E66.3 - Overweight, F33.9 - Major depressive disorder, recurrent, unspecified, I10 - Essential (primary) hypertension, R42 - Dizziness and giddiness TSH reflex Free T4 Today E66.3 - Overweight, F33.9 - Major depressive disorder, recurrent, unspecified, I10 - Essential (primary) hypertension, R42 - Dizziness and giddiness Complete Blood Count Auto Diff Today E66.3 - Overweight, F33.9 - Major depressive disorder, recurrent, unspecified, I10 - Essential (primary) hypertension, R42 - Dizziness and giddiness Comprehensive [place]. Panel Fast Today E66.3 - Overweight, F33.9 - Major depressive disorder, recurrent, unspecified, I10 - Essential (primary) hypertension, R42 - Dizziness and giddiness Medications: New hydrochlorothiazide 12.5 mg PO QAM 30 caps 0RF Refilled atenolol 25 mg PO DAILY 90 tabs 0RF atenolol 25 mg PO DAILY 90 tabs 0RF Coding Level of Care Code Est Pt Level 4 (31766) Diagnoses Hypertension, essential I10 Moderate episode of recurrent major depressive disorder F33.1 Active/Remission status: currently active Major depression episode severity: moderate Dizziness R42 Class 1 obesity due to excess calories with serious comorbidity and body mass index (BMI) of 30.0 to 30.9 in adult E66.09; Z68.30 Obesity classification: adult class 1 (BMI 30 - 34.9) Serious obesity comorbidity presence: with serious comorbidity Body mass index: BMI 30.0-30.9
== END 2023-11-22 15:49 | disposition home or self-care (01) ==
PROVIDERS: PCP Internal Medicine; Visit Provider Internal Medicine
DX: I10 Essential (primary) hypertension (principal); F33.1 Major depressive disorder, recurrent, moderate; R42 Dizziness and giddiness; E66.09 Other obesity due to excess calories; Z68.30 Body mass index [BMI] 30.0-30.9, adult
CPT/HCPCS: 99214

== ENCOUNTER 2024-02-14 08:45 | Outpatient (REF) | payer BC, SELFPAY ==
[2024-02-14 10:31] LABS: MANUAL DIFF FLAG NO
[2024-02-14 10:36] LABS: Basophils Percent Auto 0.5 % (0-2); Eosinophils Absolute Auto 0.1 X10*3/uL (0.0-0.4); Eosinophils Percent Auto 1.5 % (0-4); Hematocrit 40.8 % (37.0-47.0); Hemoglobin 13.6 g/dl (12.0-16.0); Imm Gran Abs Auto 0.02 X10*3/uL (0.00-0.03); Imm Gran Pct Auto 0.5 % (0.0-0.4); Lymphocytes Absolute Auto 1.3 X10*3/uL (1.2-4.9); Lymphocytes Percent Auto 30.8 % (20-40); Mean Corpuscular HGB Conc 33.3 g/dl (31.0-35.0); Mean Corpuscular Hemoglobin 28.6 pg (27.0-33.0); Mean Corpuscular Volume 85.9 fL (80.0-98.0); Mean Platelet Volume 11.7 fL (9.4-12.3); Monocytes Absolute Auto 0.3 X10*3/uL (0.1-1.2); Monocytes Percent Auto 8.3 % (2-11); Neutrophils Absolute Auto 2.4 x10*3/uL (2.0-8.3); Neutrophils Percent Auto 58.4 % (45-73); Platelet Count 226 X10*3/uL (160-400); Red Blood Count 4.75 X10*6/uL (4.20-5.50); Red Cell Distribution Width 12.3 % (11.0-16.0); White Blood Count 4.1 X10*3/uL (4.8-10.8)
[2024-02-14 10:59] LABS: Alanine Aminotransferase 27 U/L (0-31); Albumin Level 4.2 g/dL (3.5-5.0); Alkaline Phosphatase 56 U/L (39-117); Anion Gap 12 (12-20); Aspartate Amino Transferase 18 U/L (5-31); Bilirubin Total 0.4 mg/dL (0.0-1.0); Blood Urea Nitrogen 9 mg/dL (9-16); Calcium 8.7 mg/dL (8.4-10.2); Carbon Dioxide 29 mmol/L (22-29); Chloride 101 mmol/L (96-108); Cholesterol 171 mg/dL (<200); Estimated Glomerular Filt Rate > 60; Glucose Fasting 119 mg/dL (60-99); HDL Cholesterol 46 mg/dL (>40); LDL Cholesterol Calculated 104 mg/dL (<100); Potassium 3.5 mmol/L (3.3-5.1); Sodium 138 mmol/L (135-145); Total Protein 7.2 g/dL (6.5-8.0); Triglycerides 109 mg/dL (<150)
[2024-02-14 11:15] LABS: TSH reflex Free T4 1.21 uIU/mL (0.32-4.0)
== END 2024-02-14 08:46 | disposition home or self-care (01) ==
LOC: HO.HMGCLDS 08:45
PROVIDERS: PCP Internal Medicine; Visit Provider Internal Medicine
DX: F33.9 Major depressive disorder, recurrent, unspecified (principal); I10 Essential (primary) hypertension; E66.3 Overweight; R42 Dizziness and giddiness
CPT/HCPCS: 36415; 80053; 80061; 84443; 85025

== ENCOUNTER 2024-02-20 08:53 | Outpatient (AMB) | payer BC, SELFPAY ==
[2024-02-20 08:58] VITALS: BP 134/86; PULSE 71; O2SAT 98; BMI 31.2
--- NOTE | 2024-02-20 08:58 | A.OFFPC_ITS ---
Vital Signs 02/20/24 08:58 Height 5 ft 2 in Weight 170 lb 6 oz BMI 31.2 BP 134/86 Blood Pressure Location Rt brachial Position Sitting Pulse 71 Pulse Source Pulse Oximeter Pulse Oximetry (%) 98 Oxygen Delivery Method Room Air Intake Visit Reasons: annual PE Allergies No Known Allergies [No Known Allergies*] Allergy (Verified 02/20/24 08:59) Medication List - Last Reconciled 02/20/24 by Kate Ramos MD albuterol sulfate 90 mcg/actuation 2 puffs inhalation Q6H PRN hydrochlorothiazide 12.5 mg PO QAM lorazepam 0.5 mg PO DAILY 2 days omeprazole 20 mg PO DAILY Tobacco use date assessed: 02/20/24 Dental Screening Dental Screen Date: 02/20/24 Did you have a dental visit in the last 12 months?: Yes Did you have a dental problem in the last 6 months where you did not have access to dental care?: No Was dental information given to patient?: Patient has dentist HPI annual PE HPI Details Patient is a 43-year-old female came today for physical examination Patient had labs done recently which shows fasting blood sugar of 119 We did a hemoglobin A1c which came back at 5.8 Diet exercise discussed with the patient in detail Patient says that her blood pressure has been fluctuating a lot between 160-1 30 She has tried atenolol in the past which was causing the same problem blood pressure was not controlled So we switched her to hydrochlorothiazide 12.5 mg Her blood pressure is stable today at 134/86, I am booking appointment with the Nephrology for further evaluation Patient also had a diverticulitis 2 years ago and ended up having surgery She says that she is having left lower quadrant pain off and on and she is concerned she does not have any pain today Showed like to go back and have a consultation by Nephrology Eczema left ear, patient is using clobetasol cream which is not controlling the rash, she has Dr. Live in the past and will go and see her again. Patient sees Dr. Lieberman as OBGYN with [facility], she has appointment coming up in March Pap smear and breast exam through him. BMI is elevated at 30.2, patient is trying to lose weight she goes to gym. Follow-up 6 months for impaired fasting sugar PFSH Medical History Allergy-induced asthma Diverticulitis of intestine with perforation and abscess GERD (gastroesophageal reflux disease) Acute abdomen Diverticulitis Surgical History Hx of colonoscopy History of colostomy reversal (03/21/22) Hx of esophagogastroduodenoscopy History of appendectomy (02/03/22) Status post Zana's procedure Family History Father HTN (hypertension) History of CVA (cerebrovascular accident) Mother No problems noted. Maternal Grandfather Myocardial infarction Paternal Grandfather Myocardial infarction Brother No problems noted. Sister No problems noted. Daughter No problems noted. Daughter No problems noted. Social History Household Members: Spouse and Family Household Members Other:: Mother and children Housing: House Are you a primary child care center assistant director to a significant other at home: No Do you presently have visiting nurse or other home services: Yes (Mary WALKERA- since Sx 01/2022) Patient Tobacco Use Status: Former Tobacco user Quit Date: 01/2022 Tobacco use type: Cigarette Cigarette Packs Per Day: 0.25 Cigarettes Per Day: 5.0 Years Smoked: 25 e-Cigarette/Vaping Use: Never Used service: No Current occupational status: employed Cognitive needs: No Hearing needs: No Vision needs: No Questionnaire PHQ-9 Over the last 2 weeks, how often have you been bothered by any of the following problems? 1. Little interest or pleasure in doing things: not at all 2. Feeling down, depressed, or hopeless: not at all 3. Trouble falling or staying asleep, or sleeping too much: not at all 4. Feeling tired or having little energy: not at all 5. Poor appetite or overeating: not at all 6. Feeling bad about yourself - or that you are a failure or have let yourself or your family down: not at all 7. Trouble concentrating on things, such as reading the newspaper or watching television: not at all 8. Moving or speaking so slowly that other people could have noticed. Or the opposite - being so fidgety or restless that you have been moving around a lot more than usual: not at all 9. Thoughts that you would be better off or of hurting yourself in some way: not at all Total score: 0 Depression Screening Interpretation: Negative Depression Screening Done: Yes 76173 - PHQ-9 Billing: Yes Source: Developed by Drs. Louis Gonzalez, Vani Marrufo, Rex Sprague and colleagues, with an educational easton from [employer]. Thrive Questionnaire Date Thrive assessed: 02/20/24 I am a: Patient What is your living situation today?: I have a steady place to live Within the past 12 months, did the food you bought not last and you didn't have the money to get more?: Sometimes True Within the past 12 months, did you worry whether your food would run out before you got money to buy more?: Never true Do you have trouble paying for medicines?: No Do you have trouble getting transportation to medical appointments?: No Do you have trouble paying your heating and electricity bill?: No Do you have trouble taking care of your child, family member or friend?: No Do you have trouble with day-to-day activities such as bathing, preparing meals, shopping, managing finances, etc.?: No Are you currently unemployed and looking for a job?: No Are you interested in more education?: No Please select the resources that you would like help with: None Currently or been in a relationship where the following occur: no concerns reported THRIVE Score: 1 AUDIT C Alcohol Use Questionnaire (AUDIT-C) 1. How often do you have a drink containing alcohol?: Monthly or less 2. How many drinks containing alcohol do you have on a typical day when you are drinking?: 1 or 2 3. How often do you have six or more drinks on one occasion?: Never Total Score: 1 Score Reviewed/Action Taken: Yes MICAELA-7 AMB Questionnaire MICAELA-7 Date MICAELA - 7 assessed: 09/20/22 Source: Developed by Drs. Louis Gonzalez, Vani Marrufo, Rex Sprague and colleagues, with an educational easton from [employer]. Review of Systems Const Denies chills, Denies fever(s) and Denies headache(s) Eyes Denies blurry vision ENT Denies headache(s), Denies nasal discharge, Denies nasal obstruction, Denies odynophagia and Denies sinus pain Card Denies chest pain at rest and Denies chest pain with activity Resp Denies cough and Denies hemoptysis GI Denies diarrhea, Denies odynophagia, Denies vomiting and Denies hematemesis Reports as per HPI Musc Denies abnormal gait Skin/Breast Reports as per HPI Neuro Denies Neuro-related abnormal movements, Denies Abnormal speech present, Denies abnormal gait, Denies headache(s) and Denies Sensory deficit (Neuro) Psych Denies mood swings and Denies paranoia Endo Reports as per HPI Abraham/Lymph Reports as per HPI Aller/Immun Reports as per HPI Physical exam (Primary Care) Vital Signs: Last Vital Signs Pulse 71 02/20/24 08:58 BP 134/86 02/20/24 08:58 Pulse Ox 98 02/20/24 08:58 Oxygen Delivery Method Room Air 02/20/24 08:58 BMI result Body Mass Index 31.2 Tobacco/Smoking Status: Tobacco use Status Tobacco use date assessed 02/20/24 02/20/24 09:00 Patient Tobacco Use Status Former Tobacco user 02/20/24 09:00 Tobacco use type Cigarette 02/20/24 09:00 e-Cigarette/Vaping Use Never Used 02/20/24 09:00 PHQ-9: PHQ-9 Score PHQ-9: Total score 0 02/20/24 11:25 Depression Screening Interpretation: Negative Thrive Assessment: Date of Thrive Assessment Date Thrive assessed 02/20/24 02/20/24 11:25 Currently or been in a relationship where the following occur: no concerns reported Const General: cooperative, comfortable and no acute distress Orientation/consciousness: patient oriented x3 HENMT Head: Yes normocephalic and Yes atraumatic Eyes General: appearance normal, both eyes and all related structures Pupils: Equal, round and reactive pupils present EOM: EOMs intact bilaterally Neck Neck: Yes supple and No lymphadenopathy Thyroid: Thyroid normal Lymphatic: no lymphadenopathy noted Resp Effort & Inspection: normal respiratory effort and able to speak in complete sentences Auscultation: clear to auscultation bilaterally Cardio Heart sounds: S1 normal heart sound present and S2 normal heart sound present GI Palpation (GI): Soft to palpation and nontender Auscultation: normal bowel sounds General: Yes no CVA tenderness Back/Spine/Pelvis Back: no CVA tenderness Skin Other: Eczematous rash left ear outside ear canal General skin exam: elasticity normal and turgor normal Neuro General: patient oriented x3 and gait normal Cranial nerves: Yes Equal, round and reactive pupils present Speech: No Abnormal speech present Sensory Exam: No Sensory deficit (Neuro) Coordination: tandem gait normal and Romberg test negative Extrem General: Yes normal exam except as noted and No edema Results AMB Hemoglobin A1c AMB Hemoglobin A1c 5.8 % Last Edit by Evelyn Zarate MA on 02/20/24 09:15 Results Reviewed Results Reviewed: Laboratory Last Values Hgb A1c (Clinic) 5.8 % (4.0-6.0) 02/20/24 09:14 Assessment and Plan Assessment & Plan (1) Encounter for general adult medical examination with abnormal findings: Code(s): Z00.01 - Encounter for general adult medical examination with abnormal findings (2) Left lower quadrant pain: Code(s): R10.32 - Left lower quadrant pain (3) Eczema of left external ear: Code(s): H60.542 - Acute eczematoid otitis externa, left ear (4) Labile hypertension: Code(s): R09.89 - Other specified symptoms and signs involving the circulatory and respiratory systems (5) Chronic GERD: Code(s): K21.9 - Gastro-esophageal reflux disease without esophagitis (6) Hypertension, essential: Code(s): I10 - Essential (primary) hypertension (7) Obesity due to excess calories: Code(s): E66.09 - Other obesity due to excess calories Qualifiers: Body mass index: BMI 30.0-30.9 Obesity classification: adult class 1 (BMI 30 - 34.9) Serious obesity comorbidity presence: with serious comorbidity Qualified Code(s): E66.09 - Other obesity due to excess calories; Z68.30 - Body mass index [BMI] 30.0-30.9, adult Plan Patient is a 43-year-old female came today for physical examination Patient had labs done recently which shows fasting blood sugar of 119 We did a hemoglobin A1c which came back at 5.8 Diet exercise discussed with the patient in detail Patient says that her blood pressure has been fluctuating a lot between 160-1 30 She has tried atenolol in the past which was causing the same problem blood pressure was not controlled So we switched her to hydrochlorothiazide 12.5 mg Her blood pressure is stable today at 134/86, I am booking appointment with the Nephrology for further evaluation Patient also had a diverticulitis 2 years ago and ended up having surgery She says that she is having left lower quadrant pain off and on and she is concerned she does not have any pain today Showed like to go back and have a consultation by Nephrology Eczema left ear, patient is using clobetasol cream which is not controlling the rash, she has Dr. Live in the past and will go and see her again. Patient sees Dr. Lieberman as OBGYN with [facility], she has appointment coming up in March Pap smear and breast exam through him. BMI is elevated at 30.2, patient is trying to lose weight she goes to gym. Follow-up 6 months for impaired fasting sugar Orders: Referrals Dermatology Referral H60.542 - Acute eczematoid otitis externa, left ear Gastroenterology Referral R10.32 - Left lower quadrant pain Nephrology Referral R09.89 - Other specified symptoms and signs involving the circulatory and respiratory systems Coding Level of Care Code Est Pt Prev Care 40-64y(16864) Diagnoses Encounter for general adult medical examination with abnormal findings Z00.01 Left lower quadrant pain R10.32 Eczema of left external ear H60.542 Labile hypertension R09.89 Chronic GERD K21.9 Hypertension, essential I10 Class 1 obesity due to excess calories with serious comorbidity and body mass index (BMI) of 30.0 to 30.9 in adult E66.09; Z68.30 Body mass index: BMI 30.0-30.9 Obesity classification: adult class 1 (BMI 30 - 34.9) Serious obesity comorbidity presence: with serious comorbidity
== END 2024-02-20 09:17 | disposition home or self-care (01) ==
PROVIDERS: PCP Internal Medicine; Visit Provider Internal Medicine
DX: Z00.00 Encounter for general adult medical examination without abnormal findings (principal); R10.32 Left lower quadrant pain; H60.542 Acute eczematoid otitis externa, left ear; R09.89 Other specified symptoms and signs involving the circulatory and respiratory systems; K21.9 Gastro-esophageal reflux disease without esophagitis; I10 Essential (primary) hypertension; E66.09 Other obesity due to excess calories; Z68.30 Body mass index [BMI] 30.0-30.9, adult
CPT/HCPCS: 83036; 99396

== ENCOUNTER 2024-03-15 13:51 | Outpatient (AMB) | payer BC, SELFPAY ==
--- NOTE | 2024-03-15 13:52 | MHC.OFFVIS ---
Vital Signs 03/15/24 13:55 Height 5 ft 2 in Weight 163 lb 2.273 oz BMI 29.8 BP 164/85 H Blood Pressure Location Lt brachial Position Sitting Pulse 71 Intake Visit Reasons: Left lower quadrant pain Intake Note: Abby presents in the office as a follow up for LLQ pains. CC: She states that she started having symptoms - she wants to know what is going on. She states that she had a part of her intestine removed due to diverticulitis a couple years ago and was never seen to follow up. 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 Initial visit 08/2022: Patient was last seen in our office in 2017 for abdominal complaints of bloating, and cramping. At that time she underwent an upper endoscopy July 2018 that was positive for gastritis with H pylori positive. Esophageal and duodenal biopsies were negative. Test of cure negative September 2018. Today, she comes in because she has had 2 episodes of rectal bleeding with a bowel movement since March. She said initial episode was within a month after surgery, and she attributed it to postsurgical changes. Then, 3 weeks ago, she had another episode of painless rectal bleeding with a bowel movement. She says blood was on top of a brown stool. Does not report straining, painful defecation, or correlation with her menstrual cycle. She did not see any blood on wiping. No family history inflammatory bowel disease or colon cancer/polyp. 09/30/22: Patient had her colonoscopy on 09/21/22. Excellent prep. No polyps or mucosal abnormalities noted. Evidence of anastomosis in the rectosigmoid. Large hemorrhoids with stigmata of recent bleeding. Patient reports no recurrence of rectal bleeding or discomfort. 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 Has increased fiber in her diet. Also encouraged to take fiber supplementation as needed. No other gastrointestinal issues at this time. 03/15/24: Reports having discomfort at the site of L sided colostomy kanchan after meals within 2-3 hours does not matter what she ate. Started around 5-6 months ago. Has cramping, frequent up to 3 BMs per day. Weight curve stable. Appetite is good. [facility] Medical History Allergy-induced asthma Diverticulitis of intestine with perforation and abscess GERD (gastroesophageal reflux disease) Acute abdomen Diverticulitis Surgical History Hx of colonoscopy History of colostomy reversal (03/21/22) Hx of esophagogastroduodenoscopy History of appendectomy (02/03/22) Status post Zana's procedure Family History Father HTN (hypertension) History of CVA (cerebrovascular accident) Mother No problems noted. Maternal Grandfather Myocardial infarction Paternal Grandfather Myocardial infarction Brother No problems noted. Sister No problems noted. Daughter No problems noted. Daughter No problems noted. Social History Household Members: Spouse and Family Household Members Other:: Mother and children Housing: House Are you a primary attending ambulatory care to a significant other at home: No Do you presently have visiting nurse or other home services: Yes (Mary MADRID- since Sx 01/2022) Patient Tobacco Use Status: Former Tobacco user Tobacco use type: Cigarette Cigarette Packs Per Day: 0.25 Cigarettes Per Day: 5.0 Years Smoked: 25 e-Cigarette/Vaping Use: Never Used service: No Current occupational status: employed Cognitive needs: No Hearing needs: No Vision needs: No Review of Systems Const All systems reviewed & are unremarkable except as noted in HPI and below Physical Exam Vital Signs: Last Vital Signs Pulse 71 03/15/24 13:55 BP 164/85 H 03/15/24 13:55 BMI result Body Mass Index 29.8 No apparent distress Nonicteric Abdomen soft, nondistended Alert and oriented x3, normal gait Assessment & Plan Assessment & Plan (1) History of abdominal surgery: Code(s): Z98.890 - Other specified postprocedural states Category: Medical (2) Abdominal discomfort: Code(s): R10.9 - Unspecified abdominal pain Category: Medical (3) Left lower quadrant pain: Code(s): R10.32 - Left lower quadrant pain Category: Medical Plan Reviewed with the pt that no evidence of anastomotic stenosis or stricture on colo done in September. No significant diverticular burden was noted either. Ddx include SIBO, IBS. Will obtain imaging to r/o any extra luminal causes. (ativan given to be used just prior to CT scan) In the meantime simethicone Rxed per her preference for symptomatic management. If CT Abd/pel negative, low threshold to empirically manage as SIBO with rifaximin or cipro. Follow up 3 months Orders: Orders CT abdomen pelvis w IV con 03/15/24 R10.32 - Left lower quadrant pain, Z98.890 - Other specified postprocedural states Medications: New lorazepam (Ativan) 1 mg PO ONCE PRN 1 tab 0RF anxiety simethicone (Gas Relief (simethicone)) 125 mg PO BID-QID PRN 90 caps 0RF abdominal bloating Coding Level of Care Code Est Pt Level 4 (71885) Diagnoses History of abdominal surgery Z98.890 Abdominal discomfort R10.9 Left lower quadrant pain R10.32
[2024-03-15 13:55] VITALS: BP 164/85; PULSE 71; BMI 29.8
== END 2024-03-15 14:29 | disposition home or self-care (01) ==
PROVIDERS: PCP Internal Medicine; Visit Provider Internal Medicine
DX: Z98.890 Other specified postprocedural states (principal); R10.9 Unspecified abdominal pain; R10.32 Left lower quadrant pain
CPT/HCPCS: 99214

== ENCOUNTER → 2024-03-15 13:51 | Outpatient (BNVA) | payer BC, SELFPAY | PROVIDERS: PCP Internal Medicine; Visit Provider Internal Medicine ==

== ENCOUNTER 2024-03-22 15:00 | Outpatient (AMB) | payer BC, SELFPAY ==
--- NOTE | 2024-03-22 15:04 | HO.NEPHOV_ITS ---
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 She was diagnosed with hypertension and has taken atenolol in the past which was later switched to hydrochlorothiazide. Her blood pressure continues to be labile. She claims to be compliant with the medications. She has no history of hypokalemia, renal dysfunction, hypercalcemia, sleep apnea, palpitation, diarrhea, sweating, orthostatic hypotension, tachycardia. She has 2 children and not have any preeclampsia during pregnancies. She used due consume normal sodium diet which she is working on. She has gained some weight. She does not use any excessive nonsteroidal anti-inflammatories. She has no history of drug use. She denies any chest pain, shortness of breath, paroxysmal nocturnal dyspnea, orthopnea, pedal edema or urinary symptoms. She has no history of coronary artery disease, congestive heart failure, CVA, carotid stenosis, peripheral arterial disease or renal artery stenosis. One of the urine samples in the past showed some proteinuria which was never quantified. She is concerned about the lability of her blood pressure. [facility] Medical History Allergy-induced asthma Diverticulitis of intestine with perforation and abscess GERD (gastroesophageal reflux disease) Acute abdomen Diverticulitis Surgical History Hx of colonoscopy History of colostomy reversal (03/21/22) Hx of esophagogastroduodenoscopy History of appendectomy (02/03/22) Status post Zana's procedure Family History Father HTN (hypertension) History of CVA (cerebrovascular accident) Mother No problems noted. Maternal Grandfather Myocardial infarction Paternal Grandfather Myocardial infarction Brother No problems noted. Sister No problems noted. Daughter No problems noted. Daughter No problems noted. Social History Household Members: Spouse and Family Household Members Other:: Mother and children Housing: House Are you a primary group care worker to a significant other at home: No Do you presently have visiting nurse or other home services: Yes (Mary DENISEA- since Sx 01/2022) Patient Tobacco Use Status: Former Tobacco user Quit Date: 01/2022 Tobacco use type: Cigarette Cigarette Packs Per Day: 0.25 Cigarettes Per Day: 5.0 Years Smoked: 25 e-Cigarette/Vaping Use: Never Used service: No Current occupational status: employed Cognitive needs: No Hearing needs: No Vision needs: No Physical Exam Vital Signs: Last Vital Signs Pulse 68 03/22/24 15:05 BP 150/80 H 03/22/24 15:05 Pulse Ox 98 03/22/24 15:05 Oxygen Delivery Method Room Air 03/22/24 15:05 BMI result Body Mass Index 30.2 Const General: comfortable and no acute distress Orientation/consciousness: patient oriented x3 HEENT Head: Yes normocephalic Mouth: Normal oral and palatal mucosa present Eyes EOM: EOMs intact bilaterally Neck Neck: Yes supple Resp Auscultation: clear to auscultation bilaterally Cardio Jugular venous distension: no JVD Rate: regular rate GI Palpation (GI): Soft to palpation Auscultation: normal bowel sounds General: Yes no CVA tenderness Back/Spine/Pelvis Back: no CVA tenderness Skin General skin exam: no rashes or lesions noted Neuro General: patient oriented x3 and moves all extremities Extrem General: Yes no pedal edema Results Reviewed Nephrology Results: Hgb 13.6 g/dl (12.0-16.0) 02/14/24 WBC 4.1 X10*3/uL (4.8-10.8) L 02/14/24 Plt Count 226 X10*3/uL (160-400) 02/14/24 Sodium 138 mmol/L (135-145) 02/14/24 Potassium 3.5 mmol/L (3.3-5.1) 02/14/24 Chloride 101 mmol/L (96-108) 02/14/24 Carbon Dioxide 29 mmol/L (22-29) 03/27/24 BUN 9 mg/dL (9-16) 02/14/24 Creatinine 0.84 mg/dL (0.5-1.4) 02/14/24 Calcium 8.7 mg/dL (8.4-10.2) 02/14/24 Assessment & Plan Assessment & Plan (1) Proteinuria: Code(s): R80.9 - Proteinuria, unspecified Category: Medical Qualifiers: Proteinuria type: other Qualified Code(s): R80.8 - Other proteinuria (2) Uncontrolled hypertension: Code(s): I10 - Essential (primary) hypertension Category: Medical Plan Abby has diagnosed primary hypertension from before. She was on atenolol which was later changed to hydrochlorothiazide. She had some proteinuria in the past which was not quantified. I ordered urine protein creatinine ratio. I di scontinued her hydrochlorothiazide and started her on losartan 25 mg daily after explaining its side effects. I will be monitoring her serum potassium and renal functions closely. At the next visit I also plan to order Doppler of her renal arteries, renin, aldosterone, thyroid function, cortisol and metanephrines. She is trying to cut back on her sodium in the diet. She does not take any exces sive nonsteroidal anti-inflammatories. I discussed with her regarding the interaction of NSAIDs and ARB. She was encouraged to continue her lifestyle modification and maintain good hydration. All questions answered. Follow-up appointment given. Orders: Orders Protein Creatinine Ratio, Ur 03/22/24 R80.9 - Proteinuria, unspecified Medications: New losartan 25 mg PO DAILY 30 tabs 3RF Discontinued hydrochlorothiazide Discontinued Reason: Doctor's Order 12.5 mg PO QAM 30 caps 0RF Coding Level of Care Code New Pt Level 4 (57679) Diagnoses Other proteinuria R80.8 Proteinuria type: other Uncontrolled hypertension I10
[2024-03-22 15:05] VITALS: BP 150/80; PULSE 68; O2SAT 98; BMI 30.2
== END 2024-03-22 15:46 | disposition home or self-care (01) ==
PROVIDERS: PCP Internal Medicine; Referring Provider Internal Medicine; Visit Provider Internal Medicine Nephrology
DX: R80.8 Other proteinuria (principal); I10 Essential (primary) hypertension
CPT/HCPCS: 99204

== ENCOUNTER → 2024-03-22 15:00 | Outpatient (BNVA) | payer BC, SELFPAY | PROVIDERS: PCP Internal Medicine; Referring Provider Internal Medicine; Visit Provider Internal Medicine Nephrology ==

== ENCOUNTER 2024-04-04 14:41 | Outpatient (REF) | payer BC, SELFPAY | END 2024-04-04 14:42 | disposition home or self-care (01) | LOC: HO.HMGCLDS 14:41 | PROVIDERS: PCP Internal Medicine; Visit Provider Internal Medicine Nephrology | DX: Z13.89 Encounter for screening for other disorder (principal) ==

== ENCOUNTER 2024-04-05 13:43 | Outpatient (AMB) | payer BC, SELFPAY ==
[2024-04-05 13:51] VITALS: BP 130/80; PULSE 75; O2SAT 97
--- NOTE | 2024-04-05 13:51 | HO.NEPHOV_ITS ---
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 She was diagnosed with hypertension and has taken atenolol in the past which was later switched to hydrochlorothiazide. Her blood pressure continues to be labile. She claims to be compliant with the medications. She has no history of hypokalemia, renal dysfunction, hypercalcemia, sleep apnea, palpitation, diarrhea, sweating, orthostatic hypotension, tachycardia. She has 2 children and not have any preeclampsia during pregnancies. She used due consume normal sodium diet which she is working on. She has gained some weight. She does not use any excessive nonsteroidal anti-inflammatories. She has no history of drug use. She denies any chest pain, shortness of breath, paroxysmal nocturnal dyspnea, orthopnea, pedal edema or urinary symptoms. She has no history of coronary artery disease, congestive heart failure, CVA, carotid stenosis, peripheral arterial disease or renal artery stenosis. One of the urine samples in the past showed some proteinuria which was never quantified. She was started on losartan at the last visit and her blood pressure is better. [facility] Medical History Allergy-induced asthma Diverticulitis of intestine with perforation and abscess GERD (gastroesophageal reflux disease) Acute abdomen Diverticulitis Surgical History Hx of colonoscopy History of colostomy reversal (03/21/22) Hx of esophagogastroduodenoscopy History of appendectomy (02/03/22) Status post Zana's procedure Family History Father HTN (hypertension) History of CVA (cerebrovascular accident) Mother No problems noted. Maternal Grandfather Myocardial infarction Paternal Grandfather Myocardial infarction Brother No problems noted. Sister No problems noted. Daughter No problems noted. Daughter No problems noted. Social History Household Members: Spouse and Family Household Members Other:: Mother and children Housing: House Are you a primary care team coordinator scheduler to a significant other at home: No Do you presently have visiting nurse or other home services: Yes (Mary WALKERA- since Sx 01/2022) Patient Tobacco Use Status: Former Tobacco user Quit Date: 01/2022 Tobacco use type: Cigarette Cigarette Packs Per Day: 0.25 Cigarettes Per Day: 5.0 Years Smoked: 25 e-Cigarette/Vaping Use: Never Used service: No Current occupational status: employed Cognitive needs: No Hearing needs: No Vision needs: No Physical Exam Vital Signs: Last Vital Signs Pulse 75 04/05/24 13:51 BP 130/80 04/05/24 13:51 Pulse Ox 97 04/05/24 13:51 Oxygen Delivery Method Room Air 04/05/24 13:51 BMI result Body Mass Index 30.0 Const General: comfortable and no acute distress Orientation/consciousness: patient oriented x3 HEENT Head: Yes normocephalic Mouth: Normal oral and palatal mucosa present Eyes EOM: EOMs intact bilaterally Neck Neck: Yes supple Resp Auscultation: clear to auscultation bilaterally Cardio Jugular venous distension: no JVD Rate: regular rate GI Palpation (GI): Soft to palpation Auscultation: normal bowel sounds General: Yes no CVA tenderness Back/Spine/Pelvis Back: no CVA tenderness Skin General skin exam: no rashes or lesions noted Neuro General: patient oriented x3 and moves all extremities Extrem General: Yes no pedal edema Results Reviewed Nephrology Results: Hgb 13.6 g/dl (12.0-16.0) 02/14/24 WBC 4.1 X10*3/uL (4.8-10.8) L 02/14/24 Plt Count 226 X10*3/uL (160-400) 02/14/24 Sodium 138 mmol/L (135-145) 02/14/24 Potassium 3.5 mmol/L (3.3-5.1) 02/14/24 Chloride 101 mmol/L (96-108) 02/14/24 Carbon Dioxide 29 mmol/L (22-29) 02/14/24 BUN 9 mg/dL (9-16) 02/14/24 Creatinine 0.84 mg/dL (0.5-1.4) 02/14/24 Calcium 8.7 mg/dL (8.4-10.2) 02/14/24 Assessment & Plan Assessment & Plan (1) Proteinuria: Code(s): R80.9 - Proteinuria, unspecified Category: Medical Qualifiers: Proteinuria type: other Qualified Code(s): R80.8 - Other proteinuria (2) Labile hypertension: Code(s): R09.89 - Other specified symptoms and signs involving the circulatory and respiratory systems Category: Medical Plan Abby has diagnosed primary hypertension . She was on atenolol which was later changed to hydrochlorothiazide. She had some proteinuria in the past which was not quantified. I discontinued her hydrochlorothiazide and started her on losartan 25 mg daily after explaining its side effects, at the last visit which I plan to increase at the next visit if needed.. I will be monitoring her serum potassium and renal functions closely. At the next visit I also plan to order Doppler of her renal arteries, renin, aldosterone, thyroid function, cortisol and metanephrines, if her blood pressure continues to be labile. She is trying to cut back on her sodium in the diet. She does not take any excessive nonsteroidal anti-inflammatories. I discussed with her regarding the interaction of NSAIDs and ARB. She was encouraged to continue her lifestyle modification and maintain good hydration. All questions answered. Follow-up appointment given. Orders: Orders Creatinine Today R09.89 - Other specified symptoms and signs involving the circulatory and respiratory systems, R80.8 - Other proteinuria Blood Urea Nitrogen Today R09.89 - Other specified symptoms and signs involving the circulatory and respiratory systems, R80.8 - Other proteinuria Electrolytes Today R09.89 - Other specified symptoms and signs involving the circulatory and respiratory systems, R80.8 - Other proteinuria Protein Creatinine Ratio, Ur Today R09.89 - Other specified symptoms and signs involving the circulatory and respiratory systems, R80.8 - Other proteinuria Coding Level of Care Code Est Pt Level 4 (92821) Diagnoses Other proteinuria R80.8 Proteinuria type: other Labile hypertension R09.89
== END 2024-04-05 14:12 | disposition home or self-care (01) ==
PROVIDERS: PCP Internal Medicine; Visit Provider Internal Medicine Nephrology
DX: R80.8 Other proteinuria (principal); R09.89 Other specified symptoms and signs involving the circulatory and respiratory systems
CPT/HCPCS: 99214

== ENCOUNTER → 2024-04-05 13:43 | Outpatient (BNVA) | payer BC, SELFPAY | PROVIDERS: PCP Internal Medicine; Visit Provider Internal Medicine Nephrology ==

== ENCOUNTER 2024-05-06 15:46 | Outpatient (REF) | payer BC, SELFPAY | END 2024-05-06 15:47 | disposition home or self-care (01) | LOC: HO.CT 15:46 | PROVIDERS: PCP Internal Medicine; Visit Provider Internal Medicine | DX: Z13.89 Encounter for screening for other disorder (principal) ==

== ENCOUNTER 2024-05-10 09:05 | Outpatient (REF) | payer BC, SELFPAY ==
--- NOTE | ~2024-05-10 | CT_ITS ---
EXAMINATION: CT ABDOMEN AND PELVIS WITH CONTRAST CLINICAL INFORMATION: Left lower quadrant pain. COMPARISON: CT abdomen and pelvis 01/21/2022. TECHNIQUE: Multidetector volumetric images were obtained from the superior aspect of the liver through the pubic symphysis following administration 85 mL of Omnipaque 350 intravenous contrast. Sagittal and coronal reformatted images were obtained on the technologist's workstation. Oral contrast: No This CT examination was performed using dose optimization techniques as appropriate, variously including the following: *Automated exposure control *Adjustment of mA and/or kV according to patient size (this includes techniques or standardized protocols for targeted exams where dose is matched to indication/reason for exam; i.e. extremities or head) *Use of iterative reconstruction technique DLP: 435 mGy-cm FINDINGS: LUNG BASES: There has been complete clearing of previously seen bilateral pleural effusions and lower lobe atelectasis. The lung bases now appear normal. LIVER, GALLBLADDER, AND BILIARY TREE: The liver is normal in size, shape, and attenuation. No focal hepatic lesion or biliary ductal dilatation is present. The gallbladder is unremarkable with no evidence of radiopaque gallstones, gallbladder wall thickening, or obvious pericholecystic inflammatory changes. PANCREAS: Unremarkable. SPLEEN: Unremarkable. A splenule is present. ADRENAL GLANDS: Unremarkable. KIDNEYS AND URETERS: The kidneys are normal in size, shape, and attenuation. No hydronephrosis, hydroureter, or calculi seen. No perinephric stranding. A benign 0.6 cm left mid renal Bosniak class I renal cyst is noted which requires no additional imaging or follow up. No solid renal masses are seen. BLADDER: Unremarkable. GASTROINTESTINAL TRACT: Free air previously seen at the time of the older studies is no longer present. The previously seen left lower quadrant colostomy is no longer present. Pericecal inflammatory change is no longer present. A segment of the colon that was thickened previously appears to have been resected. I suspect that this may have been the etiology of the previously demonstrated ruptured bowel rather than the cecum that was speculated to be the cause in the original report. The small and remaining large bowel are now unremarkable. The appendix is not seen but there is no evidence of appendicitis evidence of appendicitis. ABDOMINAL WALL: No significant hernia is appreciated. LYMPH NODES: No retroperitoneal lymphadenopathy. VASCULAR: Unremarkable. PELVIC VISCERA: An anteverted uterus is present which contains an IUD in good position. Uterine fibroids are again seen. An abnormal adnexal mass is not seen. Previous free intraperitoneal fluid has resolved. OSSEOUS STRUCTURES: Unremarkable. CT/CT abdomen pelvis w IV con IMPRESSION: 1. No evidence of bowel perforation. 2. The previously seen pleural effusions and lower lobe atelectasis have resolved. 3. The previously seen left lower quadrant colostomy is no longer present. 4. A segment of the colon that was thickened previously appears to have been resected. I suspect that this may have been the etiology of the previously demonstrated ruptured bowel rather than the cecum that to be the cause in the original report. 5. Incidental note made of uterine fibroids and IUD in good position. Fleischner guidelines were followed.
[2024-05-10] MEDS: iohexoL 350 MG/ML 100 ML INFUS..BTL 85 ML IV (10:12)
== END 2024-05-10 09:06 | disposition home or self-care (01) ==
LOC: HO.CT 09:05
PROVIDERS: PCP Internal Medicine; Visit Provider Internal Medicine
DX: R10.32 Left lower quadrant pain (principal); Z98.890 Other specified postprocedural states
CPT/HCPCS: 74177; Q9967

== ENCOUNTER 2024-06-21 10:23 | Outpatient (AMB) | payer BC, SELFPAY ==
[2024-06-21 10:26] VITALS: BP 128/82; PULSE 63; O2SAT 95; BMI 31.0
--- NOTE | 2024-06-21 10:26 | HO.NEPHOV ---
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 She was diagnosed with hypertension and has taken atenolol in the past which was later switched to hydrochlorothiazide. Her blood pressure continues to be labile. She claims to be compliant with the medications. She has no history of hypokalemia, renal dysfunction, hypercalcemia, sleep apnea, palpitation, diarrhea, sweating, orthostatic hypotension, tachycardia. She has 2 children and not have any preeclampsia during pregnancies. She used due consume normal sodium diet which she is working on. She has gained some weight. She does not use any excessive nonsteroidal anti-inflammatories. She has no history of drug use. She denies any chest pain, shortness of breath, paroxysmal nocturnal dyspnea, orthopnea, pedal edema or urinary symptoms. She has no history of coronary artery disease, congestive heart failure, CVA, carotid stenosis, peripheral arterial disease or renal artery stenosis. One of the urine samples in the past showed some proteinuria which was never quantified. She was started on losartan at the last visit and her blood pressure is at goal [facility] Medical History Allergy-induced asthma Diverticulitis of intestine with perforation and abscess GERD (gastroesophageal reflux disease) Acute abdomen Diverticulitis Surgical History Hx of colonoscopy History of colostomy reversal (03/21/22) Hx of esophagogastroduodenoscopy History of appendectomy (02/03/22) Status post Zana's procedure Family History Father HTN (hypertension) History of CVA (cerebrovascular accident) Mother No problems noted. Maternal Grandfather Myocardial infarction Paternal Grandfather Myocardial infarction Brother No problems noted. Sister No problems noted. Daughter No problems noted. Daughter No problems noted. Social History Household Members: Spouse and Family Household Members Other:: Mother and children Housing: House Are you a primary youth care worker to a significant other at home: No Do you presently have visiting nurse or other home services: Yes (Mary DENISEA- since Sx 01/2022) Patient Tobacco Use Status: Former Tobacco user Tobacco use type: Cigarette Cigarette Packs Per Day: 0.25 Cigarettes Per Day: 5.0 Years Smoked: 25 e-Cigarette/Vaping Use: Never Used service: No Current occupational status: employed Cognitive needs: No Hearing needs: No Vision needs: No Review of Systems Const All systems reviewed & are unremarkable except as noted in HPI and below Physical Exam Vital Signs: Last Vital Signs Pulse 63 06/21/24 10:26 BP 128/82 06/21/24 10:26 Pulse Ox 95 06/21/24 10:26 Oxygen Delivery Method Room Air 06/21/24 10:26 BMI result Body Mass Index 31.0 Const General: comfortable and no acute distress Orientation/consciousness: patient oriented x3 HEENT Head: Yes normocephalic Mouth: Normal oral and palatal mucosa present Eyes EOM: EOMs intact bilaterally Neck Neck: Yes supple Resp Auscultation: clear to auscultation bilaterally Cardio Jugular venous distension: no JVD Rate: regular rate GI Palpation (GI): Soft to palpation Auscultation: normal bowel sounds General: Yes no CVA tenderness Back/Spine/Pelvis Back: no CVA tenderness Skin General skin exam: no rashes or lesions noted Neuro General: patient oriented x3 and moves all extremities Extrem General: Yes no pedal edema Results Reviewed Nephrology Results: Hgb 13.6 g/dl (12.0-16.0) 02/14/24 WBC 4.1 X10*3/uL (4.8-10.8) L 02/14/24 Plt Count 226 X10*3/uL (160-400) 02/14/24 Sodium 138 mmol/L (135-145) 02/14/24 Potassium 3.5 mmol/L (3.3-5.1) 02/14/24 Chloride 101 mmol/L (96-108) 02/14/24 Carbon Dioxide 29 mmol/L (22-29) 02/14/24 BUN 9 mg/dL (9-16) 02/14/24 Creatinine 0.84 mg/dL (0.5-1.4) 02/14/24 Calcium 8.7 mg/dL (8.4-10.2) 02/14/24 Assessment & Plan Assessment & Plan (1) Labile hypertension: Code(s): R09.89 - Other specified symptoms and signs involving the circulatory and respiratory systems Category: Medical Plan Abby has diagnosed primary hypertension . She was on atenolol which was later changed to hydrochlorothiazide. She had some proteinuria in the past which was not quantified. I discontinued her hydrochlorothiazide and started her on losartan 25 mg daily after explaining its side effects, which is controlling her BP to goal. She is trying to cut back on her sodium in the diet. She does not take any excessive nonsteroidal anti-inflammatories. I discussed with her regarding the interaction of NSAIDs and ARB. She was encouraged to continue her lifestyle modification and maintain good hydration. All questions answered. Follow-up appointment given. Orders: Orders Creatinine Today R09.89 - Other specified symptoms and signs involving the circulatory and respiratory systems Blood Urea Nitrogen Today R09.89 - Other specified symptoms and signs involving the circulatory and respiratory systems Electrolytes Today R09.89 - Other specified symptoms and signs involving the circulatory and respiratory systems Protein Creatinine Ratio, Ur Today R09.89 - Other specified symptoms and signs involving the circulatory and respiratory systems Medications: Refilled losartan 25 mg PO DAILY 90 tabs 4RF Coding Level of Care Code Est Pt Level 4 (25749) Diagnoses Labile hypertension R09.89
== END 2024-06-21 10:43 | disposition home or self-care (01) ==
PROVIDERS: PCP Internal Medicine; Visit Provider Internal Medicine Nephrology
DX: R09.89 Other specified symptoms and signs involving the circulatory and respiratory systems (principal)
CPT/HCPCS: 99214

== ENCOUNTER → 2024-06-21 10:23 | Outpatient (BNVA) | payer BC, SELFPAY | PROVIDERS: PCP Internal Medicine; Visit Provider Internal Medicine Nephrology ==

== ENCOUNTER 2024-08-05 11:13 | Outpatient (AMB) | payer BC, SELFPAY ==
--- NOTE | 2024-08-05 11:17 | MHC.OFFVIS ---
Vital Signs 08/05/24 11:18 Height 5 ft 2 in Weight 155 lb BMI 28.3 BP 136/84 Blood Pressure Location Lt brachial Position Sitting Pulse 73 Intake Visit Reasons: ct follow up Intake Note: Patient follow up for CT scan results Patient denies any GI issues for today. 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 Initial visit 08/2022: Patient was last seen in our office in 2017 for abdominal complaints of bloating, and cramping. At that time she underwent an upper endoscopy July 2018 that was positive for gastritis with H pylori positive. Esophageal and duodenal biopsies were negative. Test of cure negative September 2018. Today, she comes in because she has had 2 episodes of rectal bleeding with a bowel movement since March. She said initial episode was within a month after surgery, and she attributed it to postsurgical changes. Then, 3 weeks ago, she had another episode of painless rectal bleeding with a bowel movement. She says blood was on top of a brown stool. Does not report straining, painful defecation, or correlation with her menstrual cycle. She did not see any blood on wiping. No family history inflammatory bowel disease or colon cancer/polyp. 09/30/22: Patient had her colonoscopy on 09/21/22. Excellent prep. No polyps or mucosal abnormalities noted. Evidence of anastomosis in the rectosigmoid. Large hemorrhoids with stigmata of recent bleeding. Patient reports no recurrence of rectal bleeding or discomfort. Has not needed to berry picker and is all suppositories. Has increased fiber in her diet. Also encouraged to take fiber supplementation as needed. No other gastrointestinal issues at this time. 03/15/24: Reports having discomfort at the site of L sided colostomy kanchan after meals within 2-3 hours does not matter what she ate. Started around 5-6 months ago. Has cramping, frequent up to 3 BMs per day. Weight curve stable. Appetite is good. 08/05/24: Pt here for follow up after CT scan done 05/10/24: 1. No evidence of bowel perforation. 2. The previously seen pleural effusions and lower lobe atelectasis have resolved. 3. The previously seen left lower quadrant colostomy is no longer present. 4. A segment of the colon that was thickened previously appears to have been resected. I suspect that this may have been the etiology of the previously demonstrated ruptured bowel rather than the cecum that to be the cause in the original report. 5. Incidental note made of uterine fibroids and IUD in good position. Today pt reports no chronic gastrointestinal issues. Eats very healthy and when she does consume bread/sandwiches notices that it doesnt seem to right with her. Wonders if has celiac. Occ has pulling/tugging sensation at the site of old ostomy kanchan when shes stretching or doing yoga/pilates. Otherwise doing well. CT Abd/pel results reviewed with her. Pt also not bothered by fibroids but plans to duscuss with her [facility]. [facility] Medical History Allergy-induced asthma Diverticulitis of intestine with perforation and abscess GERD (gastroesophageal reflux disease) Acute abdomen Diverticulitis Surgical History Hx of colonoscopy History of colostomy reversal (03/21/22) Hx of esophagogastroduodenoscopy History of appendectomy (02/03/22) Status post Zana's procedure Family History Father HTN (hypertension) History of CVA (cerebrovascular accident) Mother No problems noted. Maternal Grandfather Myocardial infarction Paternal Grandfather Myocardial infarction Brother No problems noted. Sister No problems noted. Daughter No problems noted. Daughter No problems noted. Social History Household Members: Spouse and Family Household Members Other:: Mother and children Housing: House Are you a primary director long term care to a significant other at home: No Do you presently have visiting nurse or other home services: Yes (Mary MADRID- since Sx 01/2022) Patient Tobacco Use Status: Former Tobacco user Tobacco use type: Cigarette Cigarette Packs Per Day: 0.25 Cigarettes Per Day: 5.0 Years Smoked: 25 e-Cigarette/Vaping Use: Never Used service: No Current occupational status: employed Cognitive needs: No Hearing needs: No Vision needs: No Review of Systems Const All systems reviewed & are unremarkable except as noted in HPI and below Physical Exam Vital Signs: Last Vital Signs Pulse 73 08/05/24 11:18 BP 136/84 08/05/24 11:18 BMI result Body Mass Index 28.3 No apparent distress Nonicteric Abdomen soft, nondistended Alert and oriented x3, normal gait Assessment & Plan Assessment & Plan (1) Transient gluten sensitivity: Code(s): K90.0 - Celiac disease Category: Medical (2) Abdominal discomfort: Code(s): R10.9 - Unspecified abdominal pain Category: Medical Plan GIven abd sx that occur intermittently with certain foods, will check US abd for gallstones. Will also get blood work for celiac dz. Pt reminded to do this ON gluten. Pt also has environmental allergies so interested in seeing an brake operator for comprehensive allergy testing including food based allergy testing. She is aware to reach out to her PCP for referral. SHe will also review mgmt of fibroids if needed with her MANAGER LOGISTIC - although this appears to be a largely incidental finding on the CT. Pt comfortable with receiving results via phone/letter. Follow up PRN unless has actionable results on labs/imaging. Orders: Orders Immunoglobulin A Today K90.0 - Celiac disease US abdomen complete Today G89.29 - Other chronic pain, R10.11 - Right upper quadrant pain Transglutaminase IgA Today K90.0 - Celiac disease TSH reflex Free T4 Today K90.0 - Celiac disease Medications: Refilled omeprazole 20 mg PO DAILY 90 caps 0RF Coding Level of Care Code Est Pt Level 4 (73261) Diagnoses Transient gluten sensitivity K90.0 Abdominal discomfort R10.9
[2024-08-05 11:18] VITALS: BP 136/84; PULSE 73; BMI 28.3
== END 2024-08-05 12:50 | disposition home or self-care (01) ==
PROVIDERS: PCP Internal Medicine; Visit Provider Internal Medicine
DX: K90.0 Celiac disease (principal); R10.9 Unspecified abdominal pain
CPT/HCPCS: 99214

== ENCOUNTER → 2024-08-05 11:13 | Outpatient (BNVA) | payer BC, SELFPAY | PROVIDERS: PCP Internal Medicine; Visit Provider Internal Medicine ==

== ENCOUNTER 2024-08-08 08:33 | Outpatient (REF) | payer BC, SELFPAY ==
--- NOTE | ~2024-08-08 | US_ITS ---
EXAMINATION: US ABDOMEN COMPLETE CLINICAL INFORMATION: Right upper quadrant pain. COMPARISON: CT abdomen and pelvis 05/10/2024. Ultrasound abdomen 08/20/2012. TECHNIQUE: Real-time imaging of the abdominal viscera. FINDINGS: PANCREAS: Limited visualization of pancreatic tail and head. Imaged portion of pancreatic body is unremarkable. ABDOMINAL AORTA: The proximal, mid, and distal segments are normal in caliber. INFERIOR VENA CAVA: Visualized portions are normal. LIVER: Mildly increased hepatic parenchymal heterogeneity and echogenicity could be associated with hepatocellular disease/hepatic steatosis and substantially limits visualization. Correlation with liver function tests and clinical exam recommended to determine further management. GALLBLADDER: No gallstones. No gallbladder wall thickening. COMMON BILE DUCT: Normal in caliber measuring 0.42 cm in diameter. RIGHT KIDNEY: No hydronephrosis. No renal calculi. Limited visualization. The kidney measures 10.5 cm in maximum dimension. LEFT KIDNEY: No hydronephrosis. No renal calculi. Limited visualization. The kidney measures 12.4 cm in maximum dimension. SPLEEN: A 1.7 cm soft tissue nodule adjacent to the spleen is characteristic of a splenule. The spleen measures 11.2 cm in maximum dimension. FREE FLUID: None. US/US abdomen complete IMPRESSION: Mildly increased hepatic parenchymal heterogeneity and echogenicity could be associated with hepatocellular disease/hepatic steatosis and substantially limits visualization. Correlation with liver function tests and clinical exam recommended to determine further management. Electronically signed by: Yocasta Vasquez MD 08/13/2024 11:14 AM EDT
== END 2024-08-08 08:34 | disposition home or self-care (01) ==
LOC: HO.HMGCX 08:33
PROVIDERS: PCP Internal Medicine; Visit Provider Internal Medicine
DX: R10.11 Right upper quadrant pain (principal); G89.29 Other chronic pain
CPT/HCPCS: 76700

== ENCOUNTER 2024-08-20 08:51 | Outpatient (AMB) | payer BC, SELFPAY ==
[2024-08-20 08:55] VITALS: BP 142/86; PULSE 78; O2SAT 98; BMI 29.4
--- NOTE | 2024-08-20 08:55 | A.OFFPC_ITS ---
Vital Signs 08/20/24 08:55 Height 5 ft 2 in Weight 160 lb 8 oz BMI 29.4 BP 142/86 H Blood Pressure Location Rt brachial Position Sitting Pulse 78 Pulse Source Pulse Oximeter Pulse Oximetry (%) 98 Oxygen Delivery Method Room Air Intake Visit Reasons: 6 month follow up Allergies No Known Allergies [No Known Allergies*] Allergy (Verified 08/20/24 08:55) Medication List - Last Reconciled 08/20/24 by Kate Ramos MD albuterol sulfate 90 mcg/actuation 2 puffs inhalation Q6H PRN lorazepam 0.5 mg PO DAILY PRN 3 days losartan 25 mg PO DAILY omeprazole 20 mg PO DAILY simethicone (Gas Relief (simethicone)) 125 mg PO BID-QID PRN Tobacco use date assessed: 08/20/24 Dental Screening Dental Screen Date: 08/20/24 Did you have a dental visit in the last 12 months?: Yes Did you have a dental problem in the last 6 months where you did not have access to dental care?: No Was dental information given to patient?: Patient has dentist HPI 6 month follow up HPI Details Patient is a 44-year-old female came in today to talk about few medical problems Patient was started on omeprazole and simethicone by Gastroenterology She also had imaging done which did not show any pathology Patient says that she has been discharged from Gastro, and is asking me to fill her omeprazole and simethicone script which I Patient is also seeing Nephrology at [facility] for the management of high blood pressure She did not respond to atenolol and hydrochlorothiazide, currently taking losartan 25 mg She is monitoring her blood pressure at home every now and then and it runs in 120s systolic she tells me Today her blood pressure is 142/86. Impaired fasting sugar, patient has a family history of diabetes, she is due for labs order placed to be done fasting Patient says that she is allergic to certain foods she feels She is also allergic to environmental allergens but she does not know which 1 In spring she gets swelling of her face She is requesting a referral to water pump servicer Patient is also in need of OBGYN but she does not want to see any mid 5s She managed to lose some weight since last visit, I have encouraged her to cont inue with healthy eating and exercise Patient is also verbalizing feeling anxious and stressed at work and would like to start therapy Our behavior health coordinator is not here today, I have sent her message so she can reach out to patient We talked about medication refills, if she is going to be discharged from Nephrology Patient will need to come in every 4 months for medication refill and monitoring. [facility] Medical History Allergy-induced asthma Diverticulitis of intestine with perforation and abscess GERD (gastroesophageal reflux disease) Acute abdomen Diverticulitis Surgical History Hx of colonoscopy History of colostomy reversal (03/21/22) Hx of esophagogastroduodenoscopy History of appendectomy (02/03/22) Status post Zana's procedure Family History Father HTN (hypertension) History of CVA (cerebrovascular accident) Mother No problems noted. Maternal Grandfather Myocardial infarction Paternal Grandfather Myocardial infarction Brother No problems noted. Sister No problems noted. Daughter No problems noted. Daughter No problems noted. Social History Household Members: Spouse and Family Household Members Other:: Mother and children Housing: House Are you a primary customer care coordinator to a significant other at home: No Do you presently have visiting nurse or other home services: Yes (Mary MADRID- since Sx 01/2022) Patient Tobacco Use Status: Former Tobacco user Tobacco use type: Cigarette Cigarette Packs Per Day: 0.25 Cigarettes Per Day: 5.0 Years Smoked: 25 Packs Per Year: 6 Packs per year/per ci.25 e-Cigarette/Vaping Use: Never Used service: No Current occupational status: employed Cognitive needs: No Hearing needs: No Vision needs: No Questionnaire Thrive Questionnaire Date Thrive assessed: 08/20/24 I am a: Patient What is your living situation today?: I have a steady place to live Within the past 12 months, did the food you bought not last and you didn't have the money to get more?: Never true Within the past 12 months, did you worry whether your food would run out before you got money to buy more?: Never true Do you have trouble paying for medicines?: No Do you have trouble getting transportation to medical appointments?: No Do you have trouble paying your heating and electricity bill?: No Do you have trouble taking care of your child, family member or friend?: No Do you have trouble with day-to-day activities such as bathing, preparing meals, shopping, managing finances, etc.?: No Are you currently unemployed and looking for a job?: No Are you interested in more education?: No Please select the resources that you would like help with: None Currently or been in a relationship where the following occur: No concerns reported THRIVE Score: 0 AUDIT C Alcohol Use Questionnaire (AUDIT-C) 1. How often do you have a drink containing alcohol?: Never 3. How often do you have six or more drinks on one occasion?: Never Total Score: 0 Score Reviewed/Action Taken: Yes MICAELA-7 AMB Questionnaire MICAELA-7 Date MICAELA - 7 assessed: 08/20/24 Feeling nervous, anxious, or on edge: 0 = Not at all Not being able to stop or control worryin = Not at all Worrying too much about different things: 0 = Not at all Trouble relaxin = Not at all Being so restless that it is hard to sit still: 0 = Not at all Becoming easily annoyed or irritable: 0 = Not at all Feeling afraid as if something awful might happen: 0 = Not at all Total MICAELA-7 score (0-4 normal; 5-9 mild; 10-14 moderate; 15-21 severe): 0 Source: Developed by Drs. Louis Gonzalez, Vani Marrufo, Rex Sprague and colleagues, with an educational easton from [employer]. MICAELA-7 Assessment Billing MICAELA-7 Assessment Tool: MICAELA-7 Assessment 24175 Review of Systems Const Denies chills and Denies fever(s) ENT Denies epistaxis and Denies nasal discharge Card Denies chest pain Resp Denies chest congestion, Denies cough and Denies hemoptysis GI Denies diarrhea and Denies nausea Skin/Breast Denies rash Neuro Reports no additional complaints Psych Reports no additional complaints Endo Reports no additional complaints Physical exam (Primary Care) Vital Signs: Last Vital Signs Pulse 78 08/20/24 08:55 BP 142/86 H 08/20/24 08:55 Pulse Ox 98 08/20/24 08:55 Oxygen Delivery Method Room Air 08/20/24 08:55 BMI result Body Mass Index 29.4 Tobacco/Smoking Status: Tobacco use Status Tobacco use date assessed 08/20/24 08/20/24 08:59 Patient Tobacco Use Status Former Tobacco user 08/20/24 08:59 Tobacco use type Cigarette 08/20/24 08:59 e-Cigarette/Vaping Use Never Used 08/20/24 08:59 Thrive Assessment: Date of Thrive Assessment Date Thrive assessed 08/20/24 08/20/24 08:59 Currently or been in a relationship where the following occur: No concerns reported Const General: cooperative, comfortable and no acute distress Orientation/consciousness: patient oriented x3 HENMT Head: Yes normocephalic Eyes General: appearance normal, both eyes and all related structures Neck Neck: Yes supple Resp Effort & Inspection: normal respiratory effort, no cough and no stridor Cardio Rhythm: regular rhythm Heart sounds: S1 normal heart sound present and S2 normal heart sound present Skin General skin exam: turgor normal Neuro General: patient oriented x3, tone normal and moves all extremities Extrem Right lower extremity: no edema Left lower extremity: no edema Coding Level of Care Code Est Pt Level 5 (82212) Diagnoses Hypertension, essential I10 Chronic GERD K21.9 Overweight (BMI 25.0-29.9) E66.3 Food allergy Z91.018 Environmental allergies Z91.09 Bloating R14.0 Impaired fasting blood sugar R73.01 Elevated blood pressure reading R03.0 Stress at work Z56.6 Anxiety, generalized F41.1 Intrinsic eczema L20.84 Eczema type: intrinsic Additional Codes MICAELA-7 Assessment Billing - MICAELA-7 Assessment Tool: MICAELA-7 Assessment [id number] ([id number]) Assessment & Plan Assessment & Plan (1) Hypertension, essential: Code(s): I10 - Essential (primary) hypertension Category: Medical (2) Chronic GERD: Code(s): K21.9 - Gastro-esophageal reflux disease without esophagitis Category: Medical (3) Overweight (BMI 25.0-29.9): Code(s): E66.3 - Overweight Category: Medical (4) Food allergy: Code(s): Z91.018 - Allergy to other foods Category: Medical (5) Environmental allergies: Code(s): Z91.09 - Other allergy status, other than to drugs and biological substances Category: Medical (6) Bloating: Code(s): R14.0 - Abdominal distension (gaseous) Category: Medical (7) Impaired fasting blood sugar: Code(s): R73.01 - Impaired fasting glucose Category: Medical (8) Elevated blood pressure reading: Code(s): R03.0 - Elevated blood-pressure reading, without diagnosis of hypertension Category: Medical (9) Stress at work: Code(s): Z56.6 - Other physical and mental strain related to work Category: Social Hx (10) Anxiety, generalized: Code(s): F41.1 - Generalized anxiety disorder Category: Medical (11) Eczema: Code(s): L30.9 - Dermatitis, unspecified Category: Medical Qualifiers: Eczema type: intrinsic Qualified Code(s): L20.84 - Intrinsic (allergic) eczema Plan Patient is a 44-year-old female came in today to talk about few medical problems Patient was started on omeprazole and simethicone by Gastroenterology She also had imaging done which did not show any pathology Patient says that she has been discharged from Gastro, and is asking me to fill her omeprazole and simethicone script which I Patient is also seeing Nephrology at [facility] for the management of high blood pressure She did not respond to atenolol and hydrochlorothiazide, currently taking losartan 25 mg She is monitoring her blood pressure at home every now and then and it runs in 120s systolic she tells me Today her blood pressure is 142/86. Impaired fasting sugar, patient has a family history of diabetes, she is due for labs order placed to be done fasting Patient says that she is allergic to certain foods she feels She is also allergic to environmental allergens but she does not know which 1 In spring she gets swelling of her face She is requesting a referral to water pump servicer Patient is also in need of OBGYN but she does not want to see any mid 5s She managed to lose some weight since last visit, I have encouraged her to continue with healthy eating and exercise Patient is also verbalizing feeling anxious and stressed at work and would like to start therapy Our behavior health coordinator is not here today, I have sent her message so she can reach out to patient We talked about medication refills, if she is going to be discharged from Nephrology Patient will need to come in every 4 months for medication refill and monitoring. 45 minutes spent in care this patient Including reviewing chart, previous notes, labs, coordination of care Orders: Orders Hemoglobin A1c Today E66.3 - Overweight, F41.1 - Generalized anxiety disorder, I10 - Essential (primary) hypertension, K21.9 - Gastro-esophageal reflux disease without esophagitis, L20.84 - Intrinsic (allergic) eczema, R03.0 - Elevated blood-pressure reading, without diagnosis of hypertension, R14.0 - Abdominal distension (gaseous), R73.01 - Impaired fasting glucose, Z56.6 - Other physical and mental strain related to work, Z91.018 - Allergy to other foods, Z91.09 - Other allergy status, other than to drugs and biological substances Complete Blood Count Auto Diff Today E66.3 - Overweight, F41.1 - Generalized anxiety disorder, I10 - Essential (primary) hypertension, K21.9 - Gastro- esophageal reflux disease without esophagitis, L20.84 - Intrinsic (allergic) eczema, R03.0 - Elevated blood-pressure reading, without diagnosis of hypertension, R14.0 - Abdominal distension (gaseous), R73.01 - Impaired fasting glucose, Z56.6 - Other physical and mental strain related to work, Z91.018 - Allergy to other foods, Z91.09 - Other allergy status, other than to drugs and biological substances Comprehensive [place]. Panel Fast Today E66.3 - Overweight, F41.1 - Generalized anxiety disorder, I10 - Essential (primary) hypertension, K21.9 - Gastro- esophageal reflux disease without esophagitis, L20.84 - Intrinsic (allergic) eczema, R03.0 - Elevated blood-pressure reading, without diagnosis of hypertension, R14.0 - Abdominal distension (gaseous), R73.01 - Impaired fasting glucose, Z56.6 - Other physical and mental strain related to work, Z91.018 - Allergy to other foods, Z91.09 - Other allergy status, other than to drugs and biological substances Lipid Panel Today E66.3 - Overweight, F41.1 - Generalized anxiety disorder, I10 - Essential (primary) hypertension, K21.9 - Gastro-esophageal reflux disease without esophagitis, L20.84 - Intrinsic (allergic) eczema, R03.0 - Elevated blood-pressure reading, without diagnosis of hypertension, R14.0 - Abdominal distension (gaseous), R73.01 - Impaired fasting glucose, Z56.6 - Other physical and mental strain related to work, Z91.018 - Allergy to other foods, Z91.09 - Other allergy status, other than to drugs and biological substances TSH reflex Free T4 Today E66.3 - Overweight, F41.1 - Generalized anxiety disorder, I10 - Essential (primary) hypertension, K21.9 - Gastro-esophageal reflux disease without esophagitis, L20.84 - Intrinsic (allergic) eczema, R03.0 - Elevated blood-pressure reading, without diagnosis of hypertension, R14.0 - Abdominal distension (gaseous), R73.01 - Impaired fasting glucose, Z56.6 - Other physical and mental strain related to work, Z91.018 - Allergy to other foods, Z91.09 - Other allergy status, other than to drugs and biological substances Referrals [facility] Referral Z01.419 - Encounter for gynecological examination (general) (routine) without abnormal findings Allergy & Immunology Referral Z91.018 - Allergy to other foods, Z91.09 - Other allergy status, other than to drugs and biological substances Medications: Refilled omeprazole 20 mg PO DAILY 90 caps 0RF simethicone (Gas Relief (simethicone)) 125 mg PO BID-QID PRN 90 caps 0RF abdominal bloating Discontinued lorazepam Discontinued Reason: Doctor's Order 0.5 mg PO DAILY 3 days PRN 3 tabs 0RF anxiety
== END 2024-08-20 09:15 | disposition home or self-care (01) ==
PROVIDERS: PCP Internal Medicine; Visit Provider Internal Medicine
DX: I10 Essential (primary) hypertension (principal); K21.9 Gastro-esophageal reflux disease without esophagitis; E66.3 Overweight; Z91.018 Allergy to other foods; Z91.09 Other allergy status, other than to drugs and biological substances; R14.0 Abdominal distension (gaseous); R73.01 Impaired fasting glucose; R03.0 Elevated blood-pressure reading, without diagnosis of hypertension; Z56.6 Other physical and mental strain related to work; F41.1 Generalized anxiety disorder; L20.84 Intrinsic (allergic) eczema

== ENCOUNTER → 2024-08-20 08:51 | Outpatient (BNVA) | payer BC, SELFPAY | PROVIDERS: PCP Internal Medicine; Visit Provider Internal Medicine | DX: I10 Essential (primary) hypertension (principal); K21.9 Gastro-esophageal reflux disease without esophagitis; E66.3 Overweight; Z68.29 Body mass index [BMI] 29.0-29.9, adult; R14.0 Abdominal distension (gaseous); R73.01 Impaired fasting glucose; R03.0 Elevated blood-pressure reading, without diagnosis of hypertension; F41.1 Generalized anxiety disorder; L20.84 Intrinsic (allergic) eczema; Z91.018 Allergy to other foods; Z91.09 Other allergy status, other than to drugs and biological substances; Z56.0 Unemployment, unspecified; Z79.899 Other long term (current) drug therapy | CPT/HCPCS: 96127 ==

== ENCOUNTER 2024-09-20 09:28 | Outpatient (AMB) | payer BC, SELFPAY ==
[2024-09-20 09:30] VITALS: BP 126/74; PULSE 72; O2SAT 98; BMI 29.7
--- NOTE | 2024-09-20 09:30 | A.OFFPC_ITS ---
Vital Signs 3 09/20/24 09:30 Height 5 ft 2 in Weight 162 lb 4 oz BMI 29.7 BP 126/74 Blood Pressure Location Rt brachial Position Sitting Pulse 72 Pulse Source Pulse Oximeter Pulse Oximetry (%) 98 Oxygen Delivery Method Room Air Intake Visit Reasons: SomethingGrowingOnBack Allergies No Known Allergies [No Known Allergies*] Allergy (Verified 09/20/24 09:30) Medication List - Last Reconciled 09/20/24 by Kate Ramos MD albuterol sulfate 90 mcg/actuation 2 puffs inhalation Q6H PRN losartan 25 mg PO DAILY omeprazole 20 mg PO DAILY simethicone (Gas Relief (simethicone)) 125 mg PO BID-QID PRN Tobacco use date assessed: 09/20/24 Dental Screening Dental Screen Date: 09/20/24 Did you have a dental visit in the last 12 months?: Yes Did you have a dental problem in the last 6 months where you did not have access to dental care?: No Was dental information given to patient?: Patient has dentist HPI SomethingGrowingOnBack 2 HPI0 Details Patient is a 44-year-old female came in today to be evaluated for a lump she felt left upper back Two weeks ago, patient says that she feels as if it has gotten bigger since 2 weeks It is nontender She also would like to have refill on betamethasone that she is using for eczema Originally prescribed by Dermatology On examination patient has developed a lipoma size of about 1 in x 2 in up long smooth nontender I have placed a referral to surgeon for evaluation. [facility] Medical History Allergy-induced asthma Diverticulitis of intestine with perforation and abscess GERD (gastroesophageal reflux disease) Acute abdomen Diverticulitis Surgical History Hx of colonoscopy History of colostomy reversal (03/21/22) Hx of esophagogastroduodenoscopy History of appendectomy (02/03/22) Status post Zana's procedure Family History Father HTN (hypertension) History of CVA (cerebrovascular accident) Mother No problems noted. Maternal Grandfather Myocardial infarction Paternal Grandfather Myocardial infarction Brother No problems noted. Sister No problems noted. Daughter No problems noted. Daughter No problems noted. Social History Household Members: Spouse and Family Household Members Other:: Mother and children Housing: House Are you a primary healthcare administration internship to a significant other at home: No Do you presently have visiting nurse or other home services: Yes (Mary WALKERA- since Sx 01/2022) Patient Tobacco Use Status: Former Tobacco user Tobacco use type: Cigarette Cigarette Packs Per Day: 0.25 Cigarettes Per Day: 5.0 Years Smoked: 25 e-Cigarette/Vaping Use: Never Used service: No Current occupational status: employed Cognitive needs: No Hearing needs: No Vision needs: No Questionnaire PHQ-9 Over the last 2 weeks, how often have you been bothered by any of the following problems? 1. Little interest or pleasure in doing things: not at all 2. Feeling down, depressed, or hopeless: not at all 3. Trouble falling or staying asleep, or sleeping too much: not at all 4. Feeling tired or having little energy: not at all 5. Poor appetite or overeating: not at all 6. Feeling bad about yourself - or that you are a failure or have let yourself or your family down: not at all 7. Trouble concentrating on things, such as reading the newspaper or watching television: not at all 8. Moving or speaking so slowly that other people could have noticed. Or the opposite - being so fidgety or restless that you have been moving around a lot more than usual: not at all 9. Thoughts that you would be better off or of hurting yourself in some way: not at all Total score: 0 Depression Screening Interpretation: Negative Depression Screening Done: Yes 99258 - PHQ-9 Billing: Yes Source: Developed by Drs. Louis Gonzalez, Vani Marrufo, Rex Sprague and colleagues, with an educational easton from [employer]. Thrive Questionnaire Date Thrive assessed: 09/20/24 I am a: Patient What is your living situation today?: I have a steady place to live Within the past 12 months, did the food you bought not last and you didn't have the money to get more?: Never true Within the past 12 months, did you worry whether your food would run out before you got money to buy more?: Never true Do you have trouble paying for medicines?: No Do you have trouble getting transportation to medical appointments?: No Do you have trouble paying your heating and electricity bill?: No Do you have trouble taking care of your child, family member or friend?: No Do you have trouble with day-to-day activities such as bathing, preparing meals, shopping, managing finances, etc.?: No Are you currently unemployed and looking for a job?: No Are you interested in more education?: No Please select the resources that you would like help with: None Currently or been in a relationship where the following occur: No concerns reported THRIVE Score: 0 AUDIT C Alcohol Use Questionnaire (AUDIT-C) 1. How often do you have a drink containing alcohol?: Never 3. How often do you have six or more drinks on one occasion?: Never Total Score: 0 Score Reviewed/Action Taken: Yes MICAELA-7 AMB Questionnaire MICAELA-7 Date MICAELA - 7 assessed: 08/20/24 Source: Developed by Drs. Louis Gonzalez, Vani Marrufo, Rex Sprague and colleagues, with an educational easton from [employer]. Review of Systems Const Denies chills and Denies fever(s) ENT Denies epistaxis and Denies nasal discharge Card Denies chest pain Resp Denies chest congestion, Denies cough and Denies hemoptysis GI Denies diarrhea and Denies nausea Skin/Breast Denies rash Neuro Reports no additional complaints Psych Reports no additional complaints Endo Reports no additional complaints Physical exam (Primary Care) Vital Signs: Last Vital Signs Pulse 72 09/20/24 09:30 BP 126/74 09/20/24 09:30 Pulse Ox 98 09/20/24 09:30 Oxygen Delivery Method Room Air 09/20/24 09:30 BMI result Body Mass Index 29.7 Tobacco/Smoking Status: Tobacco use Status Tobacco use date assessed 09/20/24 09/20/24 09:31 Patient Tobacco Use Status Former Tobacco user 09/20/24 09:31 Tobacco use type Cigarette 09/20/24 09:31 e-Cigarette/Vaping Use Never Used 09/20/24 09:31 PHQ-9: PHQ-9 Score PHQ-9: Total score 0 09/20/24 09:31 Depression Screening Interpretation: Negative Thrive Assessment: Date of Thrive Assessment Date Thrive assessed 09/20/24 09/20/24 09:31 Currently or been in a relationship where the following occur: No concerns reported Const General: cooperative, comfortable and no acute distress Orientation/consciousness: patient oriented x3 HENMT Head: Yes normocephalic Eyes General: appearance normal, both eyes and all related structures Neck Neck: Yes supple Resp Effort & Inspection: normal respiratory effort, no cough and no stridor Back/Spine/Pelvis Back/spine/pelvis image: 2 1. 1 in x 2 in along smooth lump, nontender no skin changes Skin General skin exam: turgor normal Neuro General: patient oriented x3, tone normal and moves all extremities Extrem Right lower extremity: no edema Left lower extremity: no edema Coding Level of Care Code Est Pt Level 3 (48419) Diagnoses Lipoma of back D17.1 Intrinsic eczema L20.84 Eczema type: intrinsic Assessment & Plan Assessment & Plan (1) Lipoma of back: Code(s): D17.1 - Benign lipomatous neoplasm of skin and subcutaneous tissue of trunk Category: Medical (2) Eczema: Code(s): L30.9 - Dermatitis, unspecified Category: Medical Qualifiers: Eczema type: intrinsic Qualified Code(s): L20.84 - Intrinsic (allergic) eczema Plan Patient is a 44-year-old female came in today to be evaluated for a lump she felt left upper back Two weeks ago, patient says that she feels as if it has gotten bigger since 2 weeks It is nontender She also would like to have refill on betamethasone that she is using for eczema Originally prescribed by Dermatology On examination patient has developed a lipoma size of about 1 in x 2 in up long smooth nontender I have placed a referral to surgeon for evaluation. Orders: Referrals 2 General Surgery Referral D17.1 - Benign lipomatous neoplasm of skin and subcutaneous tissue of trunk Medications: New 2 betamethasone dipropionate 0.05% 1 appl topical DAILY PRN 45 grams 0RF skin irritation
== END 2024-09-20 10:21 | disposition home or self-care (01) ==
LOC: HO.HMCC 09:28
PROVIDERS: PCP Internal Medicine; Visit Provider Internal Medicine
DX: D17.1 Benign lipomatous neoplasm of skin and subcutaneous tissue of trunk (principal); L20.84 Intrinsic (allergic) eczema

== ENCOUNTER → 2024-09-20 09:28 | Outpatient (BNVA) | payer BC, SELFPAY | PROVIDERS: PCP Internal Medicine; Visit Provider Internal Medicine ==

== ENCOUNTER 2024-09-24 09:25 | Outpatient (AMB) | payer BC, SELFPAY ==
[2024-09-24 09:40] VITALS: BP 130/80; PULSE 63; TEMP 36.7; O2SAT 97; BMI 29.6
--- NOTE | 2024-09-24 09:40 | MHC.OFFWIV ---
Intake Vital Signs 09/24/24 09:40 Height 5 ft 2 in Weight 162 lb BMI 29.6 BP 130/80 Blood Pressure Location Rt brachial Position Sitting Pulse 63 Pulse Source Pulse Oximeter Temp 98.0 F Temp Source Oral Pulse Oximetry (%) 97 Intake Visit Reasons: EP Pain on RT ankle Intake Note: pt is here for pain on right ankle due to fall on monday Patient Tobacco Use Status: Former Tobacco user Allergies No Known Allergies [No Known Allergies*] Allergy (Verified 09/24/24 09:40) Do you need a note to return to daycare/school/sports/work: Yes HPI HPI Comments History of Present Illness Details Patient is a 44-year-old female complaining of right ankle pain x3 days. She tells me that she did not see a curb and she twisted her ankle outward with the miss step. She tells me she did the same thing on the left side and did fracture or bone so she is very concerned the bone is fractured. She tells me it is very tender on the outside of her ankle and she has been limping on it for the last 3 days. She has used ice but has not tried using ibuprofen, she has not wrapped it or used a walking boot. [facility] Medical History Allergy-induced asthma Diverticulitis of intestine with perforation and abscess GERD (gastroesophageal reflux disease) Acute abdomen Diverticulitis Surgical History Hx of colonoscopy History of colostomy reversal (03/21/22) Hx of esophagogastroduodenoscopy History of appendectomy (02/03/22) Status post Zana's procedure Family History Father HTN (hypertension) History of CVA (cerebrovascular accident) Mother No problems noted. Maternal Grandfather Myocardial infarction Paternal Grandfather Myocardial infarction Brother No problems noted. Sister No problems noted. Daughter No problems noted. Daughter No problems noted. Social History Household Members: Spouse and Family Household Members Other:: Mother and children Housing: House Are you a primary childcare center administrator to a significant other at home: No Do you presently have visiting nurse or other home services: Yes (Mary JULIUS- since Sx 01/2022) Patient Tobacco Use Status: Former Tobacco user Tobacco use type: Cigarette Cigarette Packs Per Day: 0.25 Cigarettes Per Day: 5.0 Years Smoked: 25 e-Cigarette/Vaping Use: Never Used service: No Current occupational status: employed Cognitive needs: No Hearing needs: No Vision needs: No Review of Systems Const All systems reviewed & are unremarkable except as noted in HPI and below Physical Exam Vital Signs: Last Vital Signs Temp 98.0 F 09/24/24 09:40 Pulse 63 09/24/24 09:40 BP 130/80 09/24/24 09:40 Pulse Ox 97 09/24/24 09:40 BMI result Body Mass Index 29.6 Const General: cooperative, healthy appearing, comfortable and no acute distress Orientation/consciousness: patient oriented x3 Limitations: no limitations HEENT Head: Yes normal to inspection Resp Effort & Inspection: normal respiratory effort and able to speak in complete sentences Neuro General: patient oriented x3 Extrem Right lower extremity: lower leg Details: normal to inspection, ankle Details: tenderness Location: of the lateral malleolus and of the anterior talofibular ligament; not of the medial malleolus, swelling Details: anteriorly and normal ROM (with pain); no unusual warmth, no abrasions, no lacerations, no ecchymosis and achilles tendon exam normal and foot Details: normal capillary refill, normal to inspection, toes with normal ROM, no edema, vascular exam Details: normal capillary refill and motor-sensory exam Details: light-touch normal; no abrasion, no laceration and no ecchymosis Assessment & Plan Assessment & Plan (1) Acute right ankle pain: Code(s): M25.571 - Pain in right ankle and joints of right foot Plan: My read of the ankle or x-ray shows no acute fracture or dislocation. Recommended patient use an Randy wrap, she does have an ankle compression stocking already on and took the RANDY wrap home. Recommended rest and ice and time. Plan see above Orders: Orders XR ankle RT min 3V Today M25.571 - Pain in right ankle and joints of right foot Coding Level of Care Code Est Pt Level 4 (09968) Diagnoses Acute right ankle pain M25.571
== END 2024-09-24 10:17 | disposition home or self-care (01) ==
PROVIDERS: PCP Internal Medicine; Visit Provider Physician Assistant
DX: M25.571 Pain in right ankle and joints of right foot (principal)

== ENCOUNTER 2024-09-24 09:25 | Outpatient (REF) | payer BC, SELFPAY ==
--- NOTE | ~2024-09-24 | XR_ITS ---
EXAMINATION: XR ANKLE, RIGHT CLINICAL INFORMATION: Pain COMPARISON: None available. TECHNIQUE: AP, lateral, and mortise views of the right ankle. FINDINGS: No acute visible fracture or dislocation. Ankle mortise is symmetric. Joint space and alignment are maintained. Slight soft tissue prominence along the medial talus and anterior tibiotalar joint. XR/XR ankle RT min 3V IMPRESSION: 1. No acute visible fracture or dislocation. 2. Slight soft tissue prominence along the medial talus and anterior tibiotalar joint. Electronically signed by: Lenin Ornelas MD 09/24/2024 10:12 AM YI
[2024-09-24 13:30] LABS: MANUAL DIFF FLAG NO
[2024-09-24 13:42] LABS: Basophils Percent Auto 0.8 % (0-2); Eosinophils Absolute Auto 0.1 X10*3/uL (0.0-0.4); Hematocrit 39.8 % (37.0-47.0); Hemoglobin 13.2 g/dl (12.0-16.0); Imm Gran Abs Auto 0.02 X10*3/uL (0.00-0.03); Imm Gran Pct Auto 0.4 % (0.0-0.4); Lymphocytes Absolute Auto 1.6 X10*3/uL (1.2-4.9); Lymphocytes Percent Auto 32.5 % (20-40); Mean Corpuscular HGB Conc 33.2 g/dl (31.0-35.0); Mean Corpuscular Hemoglobin 29.1 pg (27.0-33.0); Mean Corpuscular Volume 87.9 fL (80.0-98.0); Mean Platelet Volume 11.8 fL (9.4-12.3); Monocytes Absolute Auto 0.4 X10*3/uL (0.1-1.2); Monocytes Percent Auto 7.5 % (2-11); Neutrophils Absolute Auto 2.8 x10*3/uL (2.0-8.3); Neutrophils Percent Auto 56.8 % (45-73); Platelet Count 236 X10*3/uL (160-400); Red Blood Count 4.53 X10*6/uL (4.20-5.50); Red Cell Distribution Width 13.3 % (11.0-16.0)
[2024-09-24 13:57] LABS: Estimated Average Glucose 111 mg/dL; Hemoglobin A1C 126.8673 umol/L; Hemoglobin A1c % 5.5 % (<6.0); Total Hemoglobin (HGBA1C) 3483.0866 umol/L
[2024-09-24 14:03] LABS: Alanine Aminotransferase 27 U/L (0-31); Albumin Level 4.1 g/dL (3.5-5.0); Alkaline Phosphatase 48 U/L (39-117); Anion Gap 11 (12-20); Aspartate Amino Transferase 20 U/L (5-31); Bilirubin Total 0.4 mg/dL (0.0-1.0); Blood Urea Nitrogen 11 mg/dL (9-16); Calcium 9.2 mg/dL (8.4-10.2); Carbon Dioxide 26 mmol/L (22-29); Chloride 106 mmol/L (96-108); Cholesterol 192 mg/dL (<200); Estimated Glomerular Filt Rate > 60; Glucose Fasting 107 mg/dL (60-99); HDL Cholesterol 56 mg/dL (>40); LDL Cholesterol Calculated 108 mg/dL (<100); Potassium 4.5 mmol/L (3.3-5.1); Sodium 138 mmol/L (135-145); Triglycerides 143 mg/dL (<150)
[2024-09-24 14:14] LABS: TSH reflex Free T4 1.78 uIU/mL (0.32-4.0)
[2024-09-24 14:38] LABS: Creatinine Urine 103.37 mg/dL; Total Protein Urine Random < 7 mg/dL (<12)
[2024-09-25 08:33] LABS: Immunoglobulin A 193 mg/dL (47-310)
[2024-09-25 13:53] LABS: Transglutaminase IgA <1.0 U/mL
== END 2024-09-24 09:26 | disposition home or self-care (01) ==
LOC: HO.HMGCX 09:25
PROVIDERS: Internal Medicine Nephrology; PCP Internal Medicine; Referring Provider Internal Medicine; Visit Provider Physician Assistant
DX: M25.571 Pain in right ankle and joints of right foot (principal); R80.9 Proteinuria, unspecified; I10 Essential (primary) hypertension; Z91.018 Allergy to other foods; Z91.09 Other allergy status, other than to drugs and biological substances; R14.0 Abdominal distension (gaseous); R73.01 Impaired fasting glucose; R03.0 Elevated blood-pressure reading, without diagnosis of hypertension; Z56.6 Other physical and mental strain related to work; F41.1 Generalized anxiety disorder; L20.84 Intrinsic (allergic) eczema; K21.9 Gastro-esophageal reflux disease without esophagitis; E66.3 Overweight; K90.0 Celiac disease
CPT/HCPCS: 36415; 73610; 80053; 80061; 82570; 82784; 83036; 84156; 84443; 85025; 86364

== ENCOUNTER 2024-10-22 11:24 | Outpatient (AMB) | payer BC, SELFPAY ==
--- NOTE | 2024-10-22 11:40 | A.OFFVIS_ITS ---
Vital Signs 3 10/22/24 11:42 Height 5 ft 2 in Weight 161 lb BMI 29.4 BP 159/88 H Blood Pressure Location Lt brachial Position Sitting Pulse 73 Intake Visit Reasons: Lipoma left upper back Intake Note: Patient is seen in office for evaluation of a lipoma of the upper back. 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 She feels this is been present for several months and has gradually increased in size. She has been exercising and feels this may have led to the increase in size of the lump. She denies any trauma to her left shoulder. [facility] Medical History Allergy-induced asthma Diverticulitis of intestine with perforation and abscess GERD (gastroesophageal reflux disease) Acute abdomen Diverticulitis Surgical History Hx of colonoscopy History of colostomy reversal (03/21/22) Hx of esophagogastroduodenoscopy History of appendectomy (02/03/22) Status post Zana's procedure Family History Father HTN (hypertension) History of CVA (cerebrovascular accident) Mother No problems noted. Maternal Grandfather Myocardial infarction Paternal Grandfather Myocardial infarction Brother No problems noted. Sister No problems noted. Daughter No problems noted. Daughter No problems noted. Social History Household Members: Spouse and Family Household Members Other:: Mother and children Housing: House Are you a primary rn wound care to a significant other at home: No Do you presently have visiting nurse or other home services: Yes (Mary JULIUS- since Sx 01/2022) Patient Tobacco Use Status: Former Tobacco user Tobacco use type: Cigarette Cigarette Packs Per Day: 0.25 Cigarettes Per Day: 5.0 Years Smoked: 25 e-Cigarette/Vaping Use: Never Used service: No Current occupational status: employed Cognitive needs: No Hearing needs: No Vision needs: No Review of Systems Const All systems reviewed & are unremarkable except as noted in HPI and below Physical Exam Vital Signs: Last Vital Signs Pulse 73 10/22/24 11:42 BP 159/88 H 10/22/24 11:42 BMI result Body Mass Index 29.4 Const General: comfortable Nutritional Appearance: well nourished Orientation/consciousness: patient oriented x3 Resp Effort & Inspection: normal respiratory effort, no audible wheezes, no cough and no respiratory distress Neuro General: patient oriented x3 Extrem Other: Left posterior shoulder, with a soft tissue fullness noted posterior to the axilla. Clear margins are not palpable to definitely indicate a lipoma. No overlying skin changes are appreciated. Mass may be be a deep lipoma or muscular lesion. Shoulder/upper arm images: 2 1. Site of palpable lump posterior left shoulder Assessment & Plan Assessment & Plan (1) Lipoma of left shoulder: Code(s): D17.22 - Benign lipomatous neoplasm of skin and subcutaneous tissue of left arm Category: Medical Plan 44-year-old female patient presenting with a soft tissue mass in the posterior left shoulder of unknown etiology. I recommended further evaluation with an ultrasound to confirm the source of the lump. She will return following the study to review the results and discuss treatment options. Orders: Orders 2 US chest Today D17.22 - Benign lipomatous neoplasm of skin and subcutaneous tissue of left arm Coding Level of Care Code Est Pt Level 4 (83627) Diagnoses Lipoma of left shoulder D17.22
[2024-10-22 11:42] VITALS: BP 159/88; PULSE 73; BMI 29.4
== END 2024-10-22 11:44 | disposition home or self-care (01) ==
PROVIDERS: PCP Internal Medicine; Referring Provider Internal Medicine; Visit Provider Surgery
DX: D17.22 Benign lipomatous neoplasm of skin and subcutaneous tissue of left arm (principal)
CPT/HCPCS: 99214

== ENCOUNTER → 2024-10-22 11:24 | Outpatient (BNVA) | payer BC, SELFPAY | PROVIDERS: PCP Internal Medicine; Referring Provider Internal Medicine; Visit Provider Surgery ==

== ENCOUNTER 2024-10-23 12:50 | Outpatient (AMB) | payer BC, SELFPAY ==
--- NOTE | 2024-10-23 13:01 | A.OFFPC_ITS ---
Vital Signs 3 10/23/24 13:05 Height 5 ft 2 in Weight 165 lb 4 oz BMI 30.2 BP 132/84 Blood Pressure Location Rt brachial Position Sitting Pulse 71 Pulse Source Pulse Oximeter Pulse Oximetry (%) 98 Oxygen Delivery Method Room Air Intake Visit Reasons: Ankle Pain Allergies No Known Allergies [No Known Allergies*] Allergy (Verified 10/22/24 11:44) Medication List - Last Reconciled 10/23/24 by Kate Ramos MD albuterol sulfate 90 mcg/actuation 2 puffs inhalation Q6H PRN betamethasone dipropionate 0.05% 1 appl topical DAILY PRN losartan 25 mg PO DAILY omeprazole 20 mg PO DAILY simethicone (Gas Relief (simethicone)) 125 mg PO BID-QID PRN Tobacco use date assessed: 09/20/24 Dental Screening Dental Screen Date: 09/20/24 HPI Ankle Pain 2 HPI0 Details Patient is a 44-year-old female who was seen 09/22/2024 with a chief complaint of right ankle sprain Patient says that few days ago she twisted her ankle, and still have the pain X-ray of ankle was taken which showed 1. No acute visible fracture or disloca tion. 2. Slight soft tissue prominence along the medial talus and anterior tibiotalar joint. She came in today for re-evaluation Continued to have pain right ankle with swelling right malleolus noticed On examination patient is having pain with extension with foot, and inversion, pain is located over lateral malleolus where swelling is Patient is taking ibuprofen for pain Trying to staying off the foot as much as possible And is using Randy wrap to immobilize We will be placing referral request to orthopedic for further management [facility] Medical History Allergy-induced asthma Diverticulitis of intestine with perforation and abscess GERD (gastroesophageal reflux disease) Acute abdomen Diverticulitis Surgical History Hx of colonoscopy History of colostomy reversal (03/21/22) Hx of esophagogastroduodenoscopy History of appendectomy (02/03/22) Status post Zana's procedure Family History Father HTN (hypertension) History of CVA (cerebrovascular accident) Mother No problems noted. Maternal Grandfather Myocardial infarction Paternal Grandfather Myocardial infarction Brother No problems noted. Sister No problems noted. Daughter No problems noted. Daughter No problems noted. Social History Household Members: Spouse and Family Household Members Other:: Mother and children Housing: House Are you a primary transition of care specialist to a significant other at home: No Do you presently have visiting nurse or other home services: Yes (Mary WALKERA- since Sx 01/2022) Patient Tobacco Use Status: Former Tobacco user Tobacco use type: Cigarette Cigarette Packs Per Day: 0.25 Cigarettes Per Day: 5.0 Years Smoked: 25 Packs Per Year: 6 Packs per year/per ci.25 e-Cigarette/Vaping Use: Never Used service: No Current occupational status: employed Cognitive needs: No Hearing needs: No Vision needs: No Questionnaire Thrive Questionnaire Date Thrive assessed: 08/20/24 I am a: Patient What is your living situation today?: I have a steady place to live Within the past 12 months, did the food you bought not last and you didn't have the money to get more?: Never true Within the past 12 months, did you worry whether your food would run out before you got money to buy more?: Never true Do you have trouble paying for medicines?: No Do you have trouble getting transportation to medical appointments?: No Do you have trouble paying your heating and electricity bill?: No Do you have trouble taking care of your child, family member or friend?: No Do you have trouble with day-to-day activities such as bathing, preparing meals, shopping, managing finances, etc.?: No Are you currently unemployed and looking for a job?: No Are you interested in more education?: No Please select the resources that you would like help with: None Currently or been in a relationship where the following occur: No concerns reported THRIVE Score: 0 MICAELA-7 AMB Questionnaire MICAELA-7 Date MICAELA - 7 assessed: 08/20/24 Source: Developed by Drs. Louis Gonzalez, Vain Marrufo, Rex Sprague and colleagues, with an educational easton from [employer] a Division of [employer]. Review of Systems Const All systems reviewed & are unremarkable except as noted in HPI and below Physical exam (Primary Care) Vital Signs: Last Vital Signs Pulse 71 10/23/24 13:05 BP 132/84 10/23/24 13:05 Pulse Ox 98 10/23/24 13:05 Oxygen Delivery Method Room Air 10/23/24 13:05 BMI result Body Mass Index 30.2 Tobacco/Smoking Status: Tobacco use Status Tobacco use date assessed 09/20/24 10/23/24 13:03 Patient Tobacco Use Status Former Tobacco user 10/23/24 13:03 Tobacco use type Cigarette 10/23/24 13:03 e-Cigarette/Vaping Use Never Used 10/23/24 13:03 Thrive Assessment: Date of Thrive Assessment Date Thrive assessed 08/20/24 10/23/24 13:03 Currently or been in a relationship where the following occur: No concerns reported Const General: no acute distress Orientation/consciousness: patient oriented x3 Eyes General: appearance normal, both eyes and all related structures Resp Effort & Inspection: normal respiratory effort and able to speak in complete sentences Neuro General: patient oriented x3 Extrem Ankle/foot/toe images: 2 1. Swelling around lateral malleolus, pain with extension of foot and inversion Psych Mental Status: mental status grossly normal Coding Level of Care Code Est Pt Level 3 (39856) Diagnoses Acute right ankle pain M25.571 Assessment & Plan Assessment & Plan (1) Acute right ankle pain: Code(s): M25.571 - Pain in right ankle and joints of right foot Category: Medical Plan Patient is a 44-year-old female who was seen 09/22/2024 with a chief complaint of right ankle sprain Patient says that few days ago she twisted her ankle, and still have the pain X-ray of ankle was taken which showed 1. No acute visible fracture or dislocation. 2. Slight soft tissue prominence along the medial talus and anterior tibiotalar joint. She came in today for re-evaluation Continued to have pain right ankle with swelling right malleolus noticed On examination patient is having pain with extension with foot, and inversion, pain is located over lateral malleolus where swelling is Patient is taking ibuprofen for pain Trying to staying off the foot as much as possible And is using Randy wrap to immobilize We will be placing referral request to orthopedic for further management Orders: Referrals 2 Orthopedics Referral M25.571 - Pain in right ankle and joints of right foot
[2024-10-23 13:05] VITALS: BP 132/84; PULSE 71; O2SAT 98; BMI 30.2
== END 2024-10-23 14:07 | disposition home or self-care (01) ==
PROVIDERS: PCP Internal Medicine; Visit Provider Internal Medicine
DX: M25.571 Pain in right ankle and joints of right foot (principal)

== ENCOUNTER → 2024-10-23 12:50 | Outpatient (BNVA) | payer BC, SELFPAY | PROVIDERS: PCP Internal Medicine; Visit Provider Internal Medicine ==

== ENCOUNTER 2024-11-01 15:53 | Outpatient (REF) | payer BC, SELFPAY | END 2024-11-01 15:54 | disposition home or self-care (01) | LOC: HO.US 15:53 | PROVIDERS: PCP Internal Medicine; Visit Provider Surgery | DX: D17.22 Benign lipomatous neoplasm of skin and subcutaneous tissue of left arm (principal) | CPT/HCPCS: 76604 ==

== ENCOUNTER 2024-12-06 10:51 | Outpatient (AMB) | payer BC, SELFPAY ==
--- NOTE | 2024-12-06 11:08 | MHC.OFFVIS ---
Vital Signs 12/06/24 11:10 Height 5 ft 2 in Weight 167 lb BMI 30.5 Pulse 62 Intake Visit Reasons: ultrasound results Intake Note: Patient is seen in office for ultrasound results, following lipoma of left shoulder. 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 She feels this is been present for several months and has gradually increased in size. She has been exercising and feels this may have led to the increase in size of the lump. She denies any trauma to her left shoulder. She underwent ultrasound of the left shoulder and returns today to review the results. She continues to feel the lump without any significant change. She is requesting excision of this lump. [facility] Medical History Allergy-induced asthma Diverticulitis of intestine with perforation and abscess GERD (gastroesophageal reflux disease) Acute abdomen Diverticulitis Surgical History Hx of colonoscopy History of colostomy reversal (03/21/22) Hx of esophagogastroduodenoscopy History of appendectomy (02/03/22) Status post Zana's procedure Family History Father HTN (hypertension) History of CVA (cerebrovascular accident) Mother No problems noted. Maternal Grandfather Myocardial infarction Paternal Grandfather Myocardial infarction Brother No problems noted. Sister No problems noted. Daughter No problems noted. Daughter No problems noted. Social History Household Members: Spouse and Family Household Members Other:: Mother and children Housing: House Are you a primary health care social worker to a significant other at home: No Do you presently have visiting nurse or other home services: Yes (Mary MADRID- since Sx 01/2022) Patient Tobacco Use Status: Former Tobacco user Tobacco use type: Cigarette Cigarette Packs Per Day: 0.25 Cigarettes Per Day: 5.0 Years Smoked: 25 e-Cigarette/Vaping Use: Never Used service: No Current occupational status: employed Cognitive needs: No Hearing needs: No Vision needs: No Review of Systems Const All systems reviewed & are unremarkable except as noted in HPI and below Physical Exam Vital Signs: Last Vital Signs Pulse 62 12/06/24 11:10 BMI result Body Mass Index 30.5 Const General: comfortable Nutritional Appearance: well nourished Orientation/consciousness: patient oriented x3 Resp Effort & Inspection: normal respiratory effort, no audible wheezes, no cough and no respiratory distress Neuro General: patient oriented x3 Extrem Other: Left posterior shoulder, with a soft tissue fullness noted posterior to the axilla. Clear margins are not palpable to definitely indicate a lipoma. No overlying skin changes are appreciated. Mass may be be a deep lipoma or muscular lesion. Results Reviewed Results Reviewed: Reviewed the ultrasound of the left posterior shoulder in detail with the patient. Patient was seen to have an approximately 6 cm subcutaneous lipoma corresponding to the palpable lump. Margins do appear discrete. Assessment & Plan Assessment & Plan (1) Lipoma of left shoulder: Code(s): D17.22 - Benign lipomatous neoplasm of skin and subcutaneous tissue of left arm Category: Medical Plan 44-year-old female patient presenting with a soft tissue mass of the posterior left shoulder. Ultrasound confirms a subcutaneous mass consistent with a lipoma. This measures approximately 6 cm in diameter. I recommended an excision of the lipoma as a short-stay surgery and after discussion of the procedure, risks, and alternatives, she consents to the surgery. Coding Level of Care Code Est Pt Level 3 (15035) Diagnoses Lipoma of left shoulder D17.22
[2024-12-06 11:10] VITALS: PULSE 62; BMI 30.5
== END 2024-12-06 12:46 | disposition home or self-care (01) ==
PROVIDERS: PCP Internal Medicine; Visit Provider Surgery
DX: D17.22 Benign lipomatous neoplasm of skin and subcutaneous tissue of left arm (principal)
CPT/HCPCS: 99213

== ENCOUNTER → 2024-12-06 10:51 | Outpatient (BNVA) | payer BC, SELFPAY | PROVIDERS: PCP Internal Medicine; Visit Provider Surgery ==

== ENCOUNTER 2025-01-10 12:02 | Outpatient (AMB) | payer BC, SELFPAY ==
--- NOTE | 2025-01-10 12:06 | HO.NEPHOV_ITS ---
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 She was diagnosed with hypertension and has taken atenolol in the past which was later switched to hydrochlorothiazide. Her blood pressure continues to be labile. Ronnie rodriguez claims to be compliant with the medications. She has no history of hypokalemia, renal dysfunction, hypercalcemia, sleep apnea, palpitation, diarrhea, sweating, orthostatic hypotension, tachycardia. She has 2 children and not have any preeclampsia during pregnancies. She used due consume normal sodium diet which she is working on. She has lost some weight. She does not use any excessive nonsteroidal anti-inflammatories. She has no history of drug use. She denies any chest pain, shortness of breath, paroxysmal nocturnal dyspnea, orthopnea, pedal edema or urinary symptoms. She has no history of coronary artery disease, congestive heart failure, CVA, carotid stenosis, peripheral arterial disease or renal artery stenosis. One of the urine samples in the past showed some proteinuria which was never quantified. She was started on losartan at the last visit and her blood pressure has improved but not at goal [facility] Medical History Allergy-induced asthma Diverticulitis of intestine with perforation and abscess GERD (gastroesophageal reflux disease) Acute abdomen Diverticulitis Surgical History Hx of colonoscopy History of colostomy reversal (03/21/22) Hx of esophagogastroduodenoscopy History of appendectomy (02/03/22) Status post Zana's procedure Family History Father HTN (hypertension) History of CVA (cerebrovascular accident) Mother No problems noted. Maternal Grandfather Myocardial infarction Paternal Grandfather Myocardial infarction Brother No problems noted. Sister No problems noted. Daughter No problems noted. Daughter No problems noted. Social History Household Members: Spouse and Family Household Members Other:: Mother and children Housing: House Are you a primary manager long term care to a significant other at home: No Do you presently have visiting nurse or other home services: Yes ([place] [facility]- since Sx 01/2022) Patient Tobacco Use Status: Former Tobacco user Tobacco use type: Cigarette Cigarette Packs Per Day: 0.25 Cigarettes Per Day: 5.0 Years Smoked: 25 e-Cigarette/Vaping Use: Never Used service: No Current occupational status: employed Cognitive needs: No Hearing needs: No Vision needs: No Review of Systems Const All systems reviewed & are unremarkable except as noted in HPI and below Physical Exam Vital Signs: Last Vital Signs BP 138/90 H 01/10/25 12:07 BMI result Body Mass Index 29.0 Const General: comfortable and no acute distress Orientation/consciousness: patient oriented x3 HEENT Head: Yes normocephalic Mouth: Normal oral and palatal mucosa present Eyes EOM: EOMs intact bilaterally Neck Neck: Yes supple Resp Auscultation: clear to auscultation bilaterally Cardio Jugular venous distension: no JVD Rate: regular rate GI Palpation (GI): Soft to palpation Auscultation: normal bowel sounds General: Yes no CVA tenderness Back/Spine/Pelvis Back: no CVA tenderness Skin General skin exam: no rashes or lesions noted Neuro General: patient oriented x3 and moves all extremities Extrem General: Yes no pedal edema Results Reviewed Nephrology Results: Hgb 13.2 g/dl (12.0-16.0) 09/24/24 WBC 5.0 X10*3/uL (4.8-10.8) 09/24/24 Plt Count 236 X10*3/uL (160-400) 09/24/24 Sodium 138 mmol/L (135-145) 09/24/24 Potassium 4.5 mmol/L (3.3-5.1) 09/24/24 Chloride 106 mmol/L (96-108) 09/24/24 Carbon Dioxide 26 mmol/L (22-29) 09/24/24 BUN 11 mg/dL (9-16) 09/24/24 Creatinine 0.67 mg/dL (0.5-1.4) 09/24/24 Calcium 9.2 mg/dL (8.4-10.2) 09/24/24 Urine Creatinine 103.37 mg/dL 09/24/24 Protein/Creatinin Ratio TNP 09/24/24 Assessment & Plan Assessment & Plan (1) Hypertension, essential: Code(s): I10 - Essential (primary) hypertension Category: Medical Plan Abby has diagnosed primary hypertension . She was on atenolol which was later changed to hydrochlorothiazide. She had some proteinuria in the past which was not quantified. I discontinued her hydrochlorothiazide and started her on losartan 25 mg daily which I increased to bid today. She is trying to cut back on her sodium in the diet. She does not take any excessive nonsteroidal anti- inflammatories. I discussed with her regarding the interaction of NSAIDs and ARB. She was encouraged to continue her lifestyle modification and maintain good hydration. All questions answered. Follow-up appointment given Orders: Orders Creatinine 4 Months I10 - Essential (primary) hypertension Blood Urea Nitrogen 4 Months I10 - Essential (primary) hypertension Electrolytes 4 Months I10 - Essential (primary) hypertension Medications: Changed From losartan 25 mg PO DAILY 90 tabs 4RF To losartan 25 mg PO BID 90 days 180 tabs 4RF Coding Level of Care Code Est Pt Level 4 (62305) Diagnoses Hypertension, essential I10
[2025-01-10 12:07] VITALS: BP 138/90; BMI 29.0
== END 2025-01-10 12:34 | disposition home or self-care (01) ==
PROVIDERS: PCP Internal Medicine; Visit Provider Internal Medicine Nephrology
DX: I10 Essential (primary) hypertension (principal)
CPT/HCPCS: 99214

== ENCOUNTER 2025-01-15 06:03 | Day surgery (SDC) | payer BC, SELFPAY ==
[2025-01-13 10:53] VITALS: BMI 30.5
--- NOTE | 2025-01-13 14:52 | HO.ANESPROP2 ---
Documented by User: Patria Bauer NP 01/13/25 14:53 HPI - Anesthesia Eval Consult details Narrative: 44yo F for Left Excision Lipoma posterior shoulder PMFSH Active Problems Active Problems: All Active Problems Lipoma of left shoulder (Acute) Acute right ankle pain (Acute) Lipoma of back (Acute) Eczema (Acute) Anxiety, generalized (Acute) Stress at work (Acute) Elevated blood pressure reading (Acute) Impaired fasting blood sugar (Acute) Bloating (Acute) Encounter for routine gynecological examination (Acute) Environmental allergies (Acute) Food allergy (Acute) Transient gluten sensitivity (Acute) Proteinuria (Acute) Uncontrolled hypertension (Acute) Labile hypertension (Acute) Eczema of left external ear (Acute) Left lower quadrant pain (Acute) Obesity due to excess calories (Acute) Dizziness (Acute) Allergic conjunctivitis (Acute) Flying phobia (Acute) Sleeping difficulty (Acute) Shortness of breath (Acute) Chest pain (Acute) Abnormal EKG (Acute) Tired (Acute) Hypertension, essential (Acute) Major depression, recurrent (Acute) Wart of hand (Acute) History of abdominal surgery (Acute) Abdominal discomfort (Acute) Rash (Acute) Hemorrhoids (Acute) Depression with anxiety (Acute) Ear disorder (Acute) Rectal bleeding (Acute) Blepharitis of eyelid of right eye (Acute) Conjunctivitis (Acute) Contact dermatitis (Acute) Chronic GERD (Acute) Overweight (BMI 25.0-29.9) (Acute) Encounter for general adult medical examination with abnormal findings (Acute) Alcoholism (Acute) Diverticulitis (Acute) Past Medical History Medical History HTN (hypertension) Allergy-induced asthma Diverticulitis of intestine with perforation and abscess GERD (gastroesophageal reflux disease) Acute abdomen Diverticulitis Family History Family History Father HTN (hypertension) History of CVA (cerebrovascular accident) Mother No problems noted. Maternal Grandfather Myocardial infarction Paternal Grandfather Myocardial infarction Brother No problems noted. Sister No problems noted. Daughter No problems noted. Daughter No problems noted. Family history of problems with anesthesia: No Surgical History Surgical History Hx of colonoscopy History of colostomy reversal (03/21/22) Hx of esophagogastroduodenoscopy History of appendectomy (02/03/22) Status post Zana's procedure History of Problems with Anesthesia: No Social History Social History Household Members: Spouse and Family Household Members Other:: Mother and children Housing: House Are you a primary foster care worker to a significant other at home: No Do you presently have visiting nurse or other home services: Yes (Mary WALKERA- since Sx 01/2022) Patient Tobacco Use Status: Former Tobacco user Tobacco use type: Cigarette Cigarette Packs Per Day: 0.25 Cigarettes Per Day: 5.0 Years Smoked: 25 e-Cigarette/Vaping Use: Never Used Use of substances other than those prescribed or required for medical reasons: No Are you DNR?: No Advance Directives: No Advance Directives Information Provided: Yes service: No Current occupational status: employed Cognitive needs: No Hearing needs: No Vision needs: No Meds Allergies Allergy/AdvReac Type Severity Reaction Status Date / Time No Known Allergies Allergy Verified 01/15/25 06:09 [No Known Allergies*] Home Medications ?Medication ?Instructions ?Recorded ?Confirmed ?Last Taken ?Type calcium PO DAILY 01/15/25 Unknown History multivitamin 1 tab PO DAILY 01/15/25 01/15/25 Unknown History omega-3 fatty acids PO DAILY 01/15/25 Unknown History Exam Height,Weight and Vital Signs: Height 5 ft 2 in Weight 75.75 kg Pertinent Lab Results Pertinent Lab Results: Laboratory Tests 09/24/24 10:25 WBC 5.0 Hgb 13.2 Hct 39.8 Plt Count 236 Sodium 138 Potassium 4.5 D Chloride 106 Carbon Dioxide 26 BUN 11 Creatinine 0.67 Assessment and Plan Assessment Anesthesia Assessment: Chart Reviewed Final Anesthetic Review Family History of Problems with Anesthesia: No History of Problems with Anesthesia: No Documented by User: Henrique Lazaro MD 01/15/25 07:28 [facility] Past Medical History Medical History HTN (hypertension) Allergy-induced asthma Diverticulitis of intestine with perforation and abscess GERD (gastroesophageal reflux disease) Acute abdomen Diverticulitis Patient : No Family History Family History Father HTN (hypertension) History of CVA (cerebrovascular accident) Mother No problems noted. Maternal Grandfather Myocardial infarction Paternal Grandfather Myocardial infarction Brother No problems noted. Sister No problems noted. Daughter No problems noted. Daughter No problems noted. Surgical History Surgical History Hx of colonoscopy History of colostomy reversal (03/21/22) Hx of esophagogastroduodenoscopy History of appendectomy (02/03/22) Status post Zana's procedure Social History Social History Household Members: Spouse and Family Household Members Other:: Mother and children Housing: House Are you a primary foster care worker to a significant other at home: No Do you presently have visiting nurse or other home services: Yes (Mary WALKERA- since Sx 01/2022) Patient Tobacco Use Status: Former Tobacco user Tobacco use type: Cigarette Cigarette Packs Per Day: 0.25 Cigarettes Per Day: 5.0 Years Smoked: 25 e-Cigarette/Vaping Use: Never Used Use of substances other than those prescribed or required for medical reasons: No Are you DNR?: No Advance Directives: No Advance Directives Information Provided: Yes service: No Current occupational status: employed Cognitive needs: No Hearing needs: No Vision needs: No Meds Allergies Allergy/AdvReac Type Severity Reaction Status Date / Time No Known Allergies Allergy Verified 01/15/25 06:09 [No Known Allergies*] Home Medications ?Medication ?Instructions ?Recorded ?Confirmed ?Last Taken ?Type calcium PO DAILY 01/15/25 Unknown History multivitamin 1 tab PO DAILY 01/15/25 01/15/25 Unknown History omega-3 fatty acids PO DAILY 01/15/25 Unknown History Exam Airway Mallampati Class: II TM Dist: <=3cm Neck ROM: Full Loose/Missing/Broken Teeth: No Heart: ok Lungs: ok Assessment and Plan Assessment Anesthesia Assessment: Anesthesia Plan Discussed Final Anesthetic Review NPO: Yes ASA Class: II Final Preanesthetic Review: No Changes in Pt Med Stat, Meds/Allgs Chart Reviewed, Consent Obtained/Reviewed and Anes Risks/Benef Reviewed Patient Risk: Low Procedure Risk: Low Anesthetic Plan Anesthetic Plan: GA and Agree w/ Assess. and Plan Disposition: Standard PACU
[2025-01-15] VITALS (7 sets, daily range): BP systolic 118–153; BP diastolic 71–96; PULSE 55–72; RESP 15–18; TEMP 36.3–36.6; O2SAT 95–98; BMI 28.5
[2025-01-15 06:24] LABS: UPreg QC Valid YES; Urine Pregnancy NEGATIVE (NEGATIVE)
[2025-01-15] MEDS: Lactated Ringers 1,000 ML 100 ML IVCONT (06:32)
[2025-01-15] MEDS: ceFAZolin Sodium/Dextrose,Iso 2 GM/50 ML PIGGYBACK IV (07:25)
--- NOTE | 2025-01-15 07:29 | P.HPSUR_ITS ---
Pre-Procedural Eval Section A - 24 Hr Update-Section A only Date of Service: 01/15/25 The patient is an INPATIENT: No Changes since office visit: Yes Patient answered all questions; No Cold of Flu in the past 2 weeks, No New Medical Problems and No Changes in Medication The patient has been examined within 24 hours of the surgical procedure. The History & Physical has been completed within 30 days and I have reviewed it.: No Section B - Complete if H&P > 30 days Chief Complaint: Benign lipomatous neoplasm of skin and subcutaneou Details of Present Illness: no changes Relevant Family History (Specify if Yes): No Relevant Social History: None Present Medications: None Medical History: No relevant PMH History of Previous Operations: No relevant previous surgery Allergies: Allergies Allergy/AdvReac Type Severity Reaction Status Date / Time No Known Allergies Allergy Verified 01/15/25 06:09 [No Known Allergies*] Review of Systems Sugical H&P ROS: Negative: Constitution, Cardiovascular, Respiratory, Neurological, Psychiatric, Hem-Onc, Allergic/Immunologic, Gastrointestinal, Genitourinary, Musculoskeletal, Integumentary, Endocrine and Eyes/Ears/N ose/Throat Exam Surgical H&P Exam: Normal: HEENT, Normal: Heart, Normal: Lungs, Normal: Extremities, Normal: Abdomen, Normal: Skin and Normal: Neurological Plan Diagnosis/Plan: Unchanged I have reviewed the history and physical and performed a pertinent physical examination on my patient. No changes have occurred unless specified. Time Spent With Patient Time: Total time managing care of this patient today ____ minutes.
--- NOTE | 2025-01-15 08:02 | P.OP_ITS ---
Operative Note Operative Note Date of Service: 01/15/25 Narrative: Preoperative diagnosis: Lipoma left posterior shoulder Postoperative diagnosis: Same Procedure: Excision of lipoma left posterior shoulder Surgeon: Jorge Marrero MD Hospitalist Medical Director: Liliya Ortiz PA-C; DORI Guthrie Anesthesia: General LMA Indications for procedure: 44-year-old female patient presenting with a gradually enlarging soft tissue mass in the left posterior shoulder measuring approximately 6 cm in diameter. Operative findings: 6 cm lipoma of the left posterior shoulder Specimen: Lipoma left posterior shoulder Estimated blood loss: 2 mL Complications: None Procedure details: Patient was brought to the OR and placed in a supine position. After administering general anesthesia the patient was rotated to a right lateral decubitus position. The patient's left posterior shoulder was prepped with ChloraPrep and draped in a sterile fashion. A surgical time-out was called the consent confirmed. Patient received preoperative antibiotics and Venodyne boots were in place. Local anesthesia consisting of 0.5% Sensorcaine was then infiltrated in a longitudinal fashion directly over the lipoma. A 3 cm incision was then created with a scalpel and carried out through subcutaneous tissue down to the lipoma. Lipoma was then dissected from the surrounding subcutaneous tissues electrocautery and sharp dissection. Hemostasis was assured using electrocautery. The lesion was completely excised and sent to pathology for further examination. Wounds were then checked for hemostasis. Wounds were irrigated with saline solution and suctioned dry. Subcutaneous tissue and dermis was then reapproximated using interrupted 3-0 Polysorb sutures. Skin was then closed using a running subcuticular 4-0 Polysorb suture. Steri-Strips, 4 x 4 gauze and Tegaderm were then applied. The patient tolerated the procedure well. Sponge, instrument, needle counts reported as correct. The patient was transferred to PACU in stable condition.
[2025-01-15] MEDS: oxyCODONE HCl Immed Release 5 MG TABLET PO (08:36)
== END 2025-01-15 09:36 | disposition home or self-care (01) ==
PROVIDERS: Nurse Practitioner; PCP Internal Medicine; Visit Provider Surgery
PROC: (CPT 23071; principal; 2025-01-15 07:30)
DX: D17.22 Benign lipomatous neoplasm of skin and subcutaneous tissue of left arm (principal); R10.0 Acute abdomen; J45.909 Unspecified asthma, uncomplicated; J82.83 Eosinophilic asthma; K21.9 Gastro-esophageal reflux disease without esophagitis; Z87.19 Personal history of other diseases of the digestive system; Z79.899 Other long term (current) drug therapy; Z98.890 Other specified postprocedural states; Z87.891 Personal history of nicotine dependence
CPT/HCPCS: 23071; 81025; 88304; J0690; J1885; J2003; J2405; J2704; J3010

== ENCOUNTER → 2025-01-15 06:03 | Outpatient (BNV) | payer BC, SELFPAY | PROVIDERS: PCP Internal Medicine; Visit Provider Surgery | DX: D17.22 Benign lipomatous neoplasm of skin and subcutaneous tissue of left arm (principal) | CPT/HCPCS: 23071 ==

== ENCOUNTER 2025-01-24 10:15 | Outpatient (AMB) | payer BC, SELFPAY ==
--- NOTE | 2025-01-24 10:16 | MHC.OFFVIS ---
Vital Signs 01/24/25 10:21 Height 5 ft 2 in Weight 153 lb BMI 28.0 BP 140/81 H Blood Pressure Location Lt brachial Position Sitting Pulse 80 Intake Visit Reasons: S/P excision lipoma Lt posterior shoulder Intake Note: Patient is seen in office for post op assessment post excision of lipoma left posterior shoulder. 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 She tolerated the procedure well and denies any ongoing symptoms. Pathology confirmed a lipoma. She returns today for wound check. [facility] Medical History HTN (hypertension) Allergy-induced asthma Diverticulitis of intestine with perforation and abscess GERD (gastroesophageal reflux disease) Acute abdomen Diverticulitis Surgical History Status post excision of lipoma (01/15/25) Hx of colonoscopy History of colostomy reversal (03/21/22) Hx of esophagogastroduodenoscopy History of appendectomy (02/03/22) Status post Zana's procedure Family History Father HTN (hypertension) History of CVA (cerebrovascular accident) Mother No problems noted. Maternal Grandfather Myocardial infarction Paternal Grandfather Myocardial infarction Brother No problems noted. Sister No problems noted. Daughter No problems noted. Daughter No problems noted. Social History Household Members: Spouse and Family Household Members Other:: Mother and children Housing: House Are you a primary career professional to a significant other at home: No Do you presently have visiting nurse or other home services: Yes (Mary MADRID- since Sx 01/2022) Patient Tobacco Use Status: Former Tobacco user Tobacco use type: Cigarette Cigarette Packs Per Day: 0.25 Cigarettes Per Day: 5.0 Years Smoked: 25 e-Cigarette/Vaping Use: Never Used service: No Current occupational status: employed Cognitive needs: No Hearing needs: No Vision needs: No Physical Exam Vital Signs: Last Vital Signs Pulse 80 01/24/25 10:21 BP 140/81 H 01/24/25 10:21 BMI result Body Mass Index 28.0 Const General: comfortable Nutritional Appearance: well nourished Orientation/consciousness: patient oriented x3 Resp Effort & Inspection: normal respiratory effort Back/Spine/Pelvis Other: Well-healed incision in the left mid back without redness or discharge. Back/spine/pelvis image: 1. Neuro General: patient oriented x3 Assessment & Plan Assessment & Plan (1) Lipoma of back: Code(s): D17.1 - Benign lipomatous neoplasm of skin and subcutaneous tissue of trunk Category: Medical Plan 44-year-old female patient presenting with a soft tissue mass of the left midback. She is now 1 week status post excision and tolerated the procedure well. Her wounds are clean, dry, and intact. She should follow up as needed. Coding Level of Care Code Global (32227) Diagnoses Lipoma of back D17.1
[2025-01-24 10:21] VITALS: BP 140/81; PULSE 80; BMI 28.0
== END 2025-01-24 10:37 | disposition home or self-care (01) ==
PROVIDERS: PCP Internal Medicine; Visit Provider Surgery
DX: D17.1 Benign lipomatous neoplasm of skin and subcutaneous tissue of trunk (principal)
CPT/HCPCS: 99024

== ENCOUNTER → 2025-01-24 10:15 | Outpatient (BNVA) | payer BC, SELFPAY | PROVIDERS: PCP Internal Medicine; Visit Provider Surgery ==

== ENCOUNTER 2025-05-21 08:40 | Outpatient (AMB) | payer BC, SELFPAY ==
--- NOTE | 2025-05-21 08:10 | MHC.PC.OV ---
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: No Is last menstrual period known: Yes Post menopausal: No Patient : No Allergies No Known Allergies (No Known Allergies*) Allergy (Verified 05/21/25 08:46) Medication List - Last Reconciled 05/21/25 by Kate Ramos MD albuterol sulfate 90 mcg/actuation 2 puffs inhalation Q6H PRN betamethasone dipropionate 0.05% 1 appl topical DAILY PRN [calcium PO DAILY] lorazepam 0.5 mg PO DAILY PRN 2 days losartan 25 mg PO BID 90 days multivitamin 1 tab PO DAILY omega-3 fatty acids PO DAILY omeprazole 20 mg PO DAILY simethicone (Gas Relief (simethicone)) 125 mg PO BID-QID PRN Tobacco use date assessed: 05/21/25 Dental Screening Dental Screen Date: 09/20/24 Did you have a dental visit in the last 12 months?: Yes Did you have a dental problem in the last 6 months where you did not have access to dental care?: No Was dental information given to patient?: Patient has dentist HPI Annual PE - see comments HPI Details Physical exam appointment - The patient is a 45-year-old female presenting with a follow-up visit for chronic medical conditions including hypertension and GERD management, discussion of headaches, and healthcare maintenance needs. - The patient reports recurrent headaches, notably severe in the morning, potentially related to elevated blood pressure. She describes a sensation of head boiling and popping during these episodes. - She has been diagnosed with prediabetes, which she understands as a permanent risk factor despite weight loss and dietary improvements. - The patient was known to have elevated blood pressure readings at her last visit and continues to experience high readings. She is under the management of her management services technician for the same. - GERD is being managed with omeprazole. However, the patient reports ineffective symptom control when trying to reduce medication intake. - She mentions a skin rash diagnosed as allergic dermatitis, managed with hydrocodone cream and dermatological prescriptions. - Past colonoscopy and related surgery in 2021 due to intestinal problems; was followed by colonoscopy and cleared for five years. Medical History: - Prediabetes - Essential Hypertension - Gastroesophageal Reflux Disease (GERD) - Allergic Dermatitis Surgical History: - Intestinal surgery (date unspecified) Social History: - Employed in the [employer] industry; was formerly with [employer], now works in [place]. Family History: - Both parents have a history of high blood pressure. Health Maintenance - Mammogram last conducted in 2019, now due for another. - Follow-up colonoscopy not required until 2026. - Blood pressure monitoring suggested, particularly during headache episodes, to enhance management. - due for OBGYN visit, referral placed [place] of Care : Nephrology for blood pressure management [facility] Medications - Losartan for hypertension - Omeprazole for GERD, taken daily - Topical cream for allergic dermatitis Patient Instructions - Monitor blood pressure at home, especially when headaches occur. - Continue taking omeprazole daily for GERD management. - Complete the recommended blood work and mammogram. - Coordinate with Dr. Cruz for hypertension management. Review of Systems - General: No fever no chills - Neurological: No headaches no dizziness - Ear nose throat: No sore throat no hearing difficulty no ear pain - Cardiovascular: No syncope, no chest pain, no palpitations - Gastrointestinal: No nausea vomiting or diarrhea - Endocrine: No polyuria polydipsia no heat intolerance - Genitourinary: No dysuria - Skin: No new complaints Physical Exam General: Cooperative, healthy appearing, comfortable, no acute distress Orientation: Patient oriented x3 Head: Normal to inspection Ears: Within normal limit visually Nose: Normal external nose present Face and sinus: Normal facial exam Eyes: Appearance normal, extraocular movement intact pupils reactive Neck: Normal visual inspection and supple Respiratory: Normal respiratory effort and able to speak in complete sentences. Clear to auscultation, no stridor Cardiovascular: S1 and S2 RRR Breast exam through OBGYN as per patient GI: Normal to inspection. Soft to palpation and nontender Skin: Turgor normal, rash present on face, allergic in nature Neuro: Patient oriented x3, motor sensory intact, balance intact, tandem pass Extremities: Normal to inspection [facility] Medical History HTN (hypertension) Allergy-induced asthma Diverticulitis of intestine with perforation and abscess GERD (gastroesophageal reflux disease) Acute abdomen Diverticulitis Surgical History Status post excision of lipoma (01/15/25) Hx of colonoscopy History of colostomy reversal (03/21/22) Hx of esophagogastroduodenoscopy History of appendectomy (02/03/22) Status post Zana's procedure Family History Father HTN (hypertension) History of CVA (cerebrovascular accident) Mother No problems noted. Maternal Grandfather Myocardial infarction Paternal Grandfather Myocardial infarction Brother No problems noted. Sister No problems noted. Daughter No problems noted. Daughter No problems noted. Social History Household Members: Spouse and Family Household Members Other:: Mother and children Housing: House Are you a primary plant care worker to a significant other at home: No Do you presently have visiting nurse or other home services: Yes (Mary WALKERA- since Sx 01/2022) Patient Tobacco Use Status: Former Tobacco user Tobacco use type: Cigarette Cigarette Packs Per Day: 0.25 Cigarettes Per Day: 5.0 Years Smoked: 25 e-Cigarette/Vaping Use: Never Used service: No Current occupational status: employed Cognitive needs: No Hearing needs: No Vision needs: No Questionnaire PHQ-9 Over the last 2 weeks, how often have you been bothered by any of the following problems? 1. Little interest or pleasure in doing things: not at all 2. Feeling down, depressed, or hopeless: not at all 3. Trouble falling or staying asleep, or sleeping too much: several days 4. Feeling tired or having little energy: not at all 5. Poor appetite or overeating: not at all 6. Feeling bad about yourself - or that you are a failure or have let yourself or your family down: not at all 7. Trouble concentrating on things, such as reading the newspaper or watching television: not at all 8. Moving or speaking so slowly that other people could have noticed. Or the opposite - being so fidgety or restless that you have been moving around a lot more than usual: not at all 9. Thoughts that you would be better off or of hurting yourself in some way: not at all Total score: 1 Depression Screening Interpretation: Negative Depression Screening Done: Yes 04619 - PHQ-9 Billing: Yes Source: Developed by Drs. Louis Gonzalez, Vani Marrufo, Rex Sprague and colleagues, with an educational easton from [employer]. Thrive Questionnaire Date Thrive assessed: 08/20/24 What is your living situation today?: I have a steady place to live Within the past 12 months, did the food you bought not last and you didn't have the money to get more?: Never true Within the past 12 months, did you worry whether your food would run out before you got money to buy more?: Never true Do you have trouble paying for medicines?: No Do you have trouble getting transportation to medical appointments?: No Do you have trouble paying your heating and electricity bill?: No Do you have trouble taking care of your child, family member or friend?: No Are you currently unemployed and looking for a job?: No Are you interested in more education?: No Currently or been in a relationship where the following occur: No concerns reported THRIVE Score: 0 MICAELA-7 AMB Questionnaire MICAELA-7 Date MICAELA - 7 assessed: 08/20/24 Source: Developed by Drs. Louis Gonzalez, Vani Marrufo, Rex Sprague and colleagues, with an educational easton from [employer]. Physical exam (Primary Care) Vital Signs: Last Vital Signs Temp 98.1 F 05/21/25 08:43 Pulse 65 05/21/25 08:43 BP 158/98 H 05/21/25 08:43 Pulse Ox 97 05/21/25 08:43 Oxygen Delivery Method Room Air 05/21/25 08:43 BMI result Body Mass Index 28.2 Tobacco/Smoking Status: Tobacco use Status Tobacco use date assessed 05/21/25 05/21/25 08:52 Patient Tobacco Use Status Former Tobacco user 05/21/25 08:11 Tobacco use type Cigarette 05/21/25 08:11 e-Cigarette/Vaping Use Never Used 05/21/25 08:11 PHQ-9: PHQ-9 Score PHQ-9: Total score 1 05/21/25 09:03 Depression Screening Interpretation: Negative Thrive Assessment: Date of Thrive Assessment Date Thrive assessed 08/20/24 05/21/25 08:11 Currently or been in a relationship where the following occur: No concerns reported Coding Level of Care Code Est Pt Level 3 (10085) Est Pt Prev Care 40-64y(67136) Diagnoses Encounter for general adult medical examination with abnormal findings Z00.01 Hypertension, essential I10 Chronic GERD K21.9 Impaired fasting blood sugar R73.01 Environmental allergies Z91.09 Additional Codes PHQ-9 - 66501 - PHQ-9 Billing: Yes ([id number]) Assessment & Plan Assessment & Plan (1) Encounter for general adult medical examination with abnormal findings: Code(s): Z00.01 - Encounter for general adult medical examination with abnormal findings Category: Medical (2) Hypertension, essential: Code(s): I10 - Essential (primary) hypertension Category: Medical (3) Chronic GERD: Code(s): K21.9 - Gastro-esophageal reflux disease without esophagitis Category: Medical (4) Impaired fasting blood sugar: Code(s): R73.01 - Impaired fasting glucose Category: Medical (5) Environmental allergies: Code(s): Z91.09 - Other allergy status, other than to drugs and biological substances Category: Medical Plan Physical exam appointment - The patient is a 45-year-old female presenting with a follow-up visit for chronic medical conditions including hypertension and GERD management, discussion of headaches, and healthcare maintenance needs. - The patient reports recurrent headaches, notably severe in the morning, potentially related to elevated blood pressure. She describes a sensation of head boiling and popping during these episodes. - She has been diagnosed with prediabetes, which she understands as a permanent risk factor despite weight loss and dietary improvements. - The patient was known to have elevated blood pressure readings at her last visit and continues to experience high readings. She is under the management of her management services technician for the same. - GERD is being managed with omeprazole. However, the patient reports ineffective symptom control when trying to reduce medication intake. - She mentions a skin rash diagnosed as allergic dermatitis, managed with hydrocodone cream and dermatological prescriptions. - Past colonoscopy and related surgery in 2021 due to intestinal problems; was followed by colonoscopy and cleared for five years. 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 Family History: - Both parents have a history of high blood pressure. Health Maintenance - Mammogram last conducted in 2019, now due for another. - Follow-up colonoscopy not required until 2026. - Blood pressure monitoring suggested, particularly during headache episodes, to enhance management. - due for OBGYN visit, referral placed [place] of Care : Nephrology for blood pressure management [facility] Medications - Losartan for hypertension - Omeprazole for GERD, taken daily - Topical cream for allergic dermatitis Patient Instructions - Monitor blood pressure at home, especially when headaches occur. - Continue taking omeprazole daily for GERD management. - Complete the recommended blood work and mammogram. - Coordinate with Dr. Cruz for hypertension management. Orders: Orders Complete Blood Count Auto Diff Today I10 - Essential (primary) hypertension, K21.9 - Gastro-esophageal reflux disease without esophagitis, R73.01 - Impaired fasting glucose, Z00.01 - Encounter for general adult medical examination with abnormal findings, Z91.09 - Other allergy status, other than to drugs and biological substances Comprehensive [facility]. Panel Fast Today I10 - Essential (primary) hypertension, K21.9 - Gastro-esophageal reflux disease without esophagitis, R73.01 - Impaired fasting glucose, Z00.01 - Encounter for general adult medical examination with abnormal findings, Z91.09 - Other allergy status, other than to drugs and biological substances Lipid Panel Today I10 - Essential (primary) hypertension, K21.9 - Gastro-esophageal reflux disease without esophagitis, R73.01 - Impaired fasting glucose, Z00.01 - Encounter for general adult medical examination with abnormal findings, Z91.09 - Other allergy status, other than to drugs and biological substances Vitamin D 25-OH (D2 and D3) Today I10 - Essential (primary) hypertension, K21.9 - Gastro-esophageal reflux disease without esophagitis, R73.01 - Impaired fasting glucose, Z00.01 - Encounter for general adult medical examination with abnormal findings, Z91.09 - Other allergy status, other than to drugs and biological substances TSH reflex Free T4 Today I10 - Essential (primary) hypertension, K21.9 - Gastro-esophageal reflux disease without esophagitis, R73.01 - Impaired fasting glucose, Z00.01 - Encounter for general adult medical examination with abnormal findings, Z91.09 - Other allergy status, other than to drugs and biological substances Hemoglobin A1c Today I10 - Essential (primary) hypertension, K21.9 - Gastro-esophageal reflux disease without esophagitis, R73.01 - Impaired fasting glucose, Z00.01 - Encounter for general adult medical examination with abnormal findings, Z91.09 - Other allergy status, other than to drugs and biological substances MM tomosynthesis screening BI Today Z12.31 - Encounter for screening mammogram for malignant neoplasm of breast 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
[2025-05-21 08:43] VITALS: BP 158/98; PULSE 65; TEMP 36.7; O2SAT 97; BMI 28.2
== END 2025-05-21 09:06 | disposition home or self-care (01) ==
LOC: HO.HMCC 08:41
PROVIDERS: PCP Internal Medicine; Visit Provider Internal Medicine
DX: Z00.01 Encounter for general adult medical examination with abnormal findings (principal); I10 Essential (primary) hypertension; K21.9 Gastro-esophageal reflux disease without esophagitis; R73.01 Impaired fasting glucose; Z91.09 Other allergy status, other than to drugs and biological substances

== ENCOUNTER → 2025-05-21 08:40 | Outpatient (BNVA) | payer BC, SELFPAY | PROVIDERS: PCP Internal Medicine; Visit Provider Internal Medicine | DX: Z00.01 Encounter for general adult medical examination with abnormal findings (principal); I10 Essential (primary) hypertension; K21.9 Gastro-esophageal reflux disease without esophagitis; R73.01 Impaired fasting glucose; Z91.09 Other allergy status, other than to drugs and biological substances | CPT/HCPCS: 96127 ==

== ENCOUNTER 2025-06-04 16:14 | Outpatient (AMB) | payer BC, SELFPAY ==
--- NOTE | 2025-06-04 16:21 | HO.NEPHOV ---
Vital Signs 06/04/25 16:24 Height 5 ft 2 in Weight 147 lb 6 oz BMI 27.0 BP 126/90 H Blood Pressure Location Rt brachial Position Sitting Intake Visit Reasons: Hypertension-LVM Catheter Builder Required: No Accompanied by: Self / Same As Patient Allergies No Known Allergies (No Known Allergies*) Allergy (Verified 06/04/25 16:23) HPI Comments Details: I had the privilege of seeing Abby in follow up for hypertension. She was diagnosed with hypertension and has taken atenolol in the past which was later switched to hydrochlorothiazide. Her blood pressure continues to be labile. She claims to be compliant with the medications. She has no history of hypokalemia, renal dysfunction, hypercalcemia, sleep apnea, palpitation, diarrhea, sweating, orthostatic hypotension, tachycardia. She has 2 children and not have any preeclampsia during pregnancies. She used due consume normal sodium diet which she is working on. She has lost some weight. She does not use any excessive nonsteroidal anti-inflammatories. She has no history of drug use. She denies any chest pain, shortness of breath, paroxysmal nocturnal dyspnea, orthopnea, pedal edema or urinary symptoms. She has no history of coronary artery disease, congestive heart failure, CVA, carotid stenosis, peripheral arterial disease or renal artery stenosis. One of the urine samples in the past showed some proteinuria which was never quantified. She was started on losartan at the last visit and her blood pressure has improved [facility] Medical History HTN (hypertension) Allergy-induced asthma Diverticulitis of intestine with perforation and abscess GERD (gastroesophageal reflux disease) Acute abdomen Diverticulitis Surgical History Status post excision of lipoma (01/15/25) Hx of colonoscopy History of colostomy reversal (03/21/22) Hx of esophagogastroduodenoscopy History of appendectomy (02/03/22) Status post Zana's procedure Family History Father HTN (hypertension) History of CVA (cerebrovascular accident) Mother No problems noted. Maternal Grandfather Myocardial infarction Paternal Grandfather Myocardial infarction Brother No problems noted. Sister No problems noted. Daughter No problems noted. Daughter No problems noted. Social History Household Members: Spouse and Family Household Members Other:: Mother and children Housing: House Are you a primary childcare center administrator to a significant other at home: No Do you presently have visiting nurse or other home services: Yes (Mary WALKERPage- since Sx 01/2022) Patient Tobacco Use Status: Former Tobacco user Tobacco use type: Cigarette Cigarette Packs Per Day: 0.25 Cigarettes Per Day: 5.0 Years Smoked: 25 e-Cigarette/Vaping Use: Never Used service: No Current occupational status: employed Cognitive needs: No Hearing needs: No Vision needs: No Review of Systems Const All systems reviewed & are unremarkable except as noted in HPI and below Physical Exam Const General: comfortable and no acute distress Orientation/consciousness: patient oriented x3 HEENT Head: Yes normocephalic Mouth: Normal oral and palatal mucosa present Eyes EOM: EOMs intact bilaterally Neck Neck: Yes supple Resp Auscultation: clear to auscultation bilaterally Cardio Jugular venous distension: no JVD Rate: regular rate GI Palpation (GI): Soft to palpation Auscultation: normal bowel sounds General: Yes no CVA tenderness Back/Spine/Pelvis Back: no CVA tenderness Skin General skin exam: no rashes or lesions noted Neuro General: patient oriented x3 and moves all extremities Extrem General: Yes no pedal edema Assessment & Plan Assessment & Plan (1) Hypertension, essential: Code(s): I10 - Essential (primary) hypertension Category: Medical Plan Abby has diagnosed primary hypertension . She was on atenolol which was later changed to hydrochlorothiazide. She had some proteinuria in the past which was not quantified. I discontinued her hydrochlorothiazide and started her on losartan 25 mg daily which I increased to bid at the last visit which she forgot in increase. After a few days of increase in dosage she can take 50 mg once daily. She is trying to cut back on her sodium in the diet. She does not take any excessive nonsteroidal anti-inflammatories. I discussed with her regarding the interaction of NSAIDs and ARB. She was encouraged to continue her lifestyle modification and maintain good hydration. All questions answered. Follow-up appointment given Orders: Orders Creatinine 4 Months I10 - Essential (primary) hypertension Electrolytes 4 Months I10 - Essential (primary) hypertension Blood Urea Nitrogen 4 Months I10 - Essential (primary) hypertension Medications: Refilled losartan 25 mg PO BID 180 tabs 4RF 90 days Coding Level of Care Code Est Pt Level 4 (98770) Diagnoses Hypertension, essential I10
[2025-06-04 16:24] VITALS: BP 126/90; BMI 27.0
== END 2025-06-04 16:37 | disposition home or self-care (01) ==
LOC: HO.HKA 16:15
PROVIDERS: PCP Internal Medicine; Visit Provider Internal Medicine Nephrology
DX: I10 Essential (primary) hypertension (principal)
CPT/HCPCS: 99214

== ENCOUNTER 2025-07-18 16:23 | Outpatient (REF) | payer BC, SELFPAY | END 2025-07-18 16:24 | disposition home or self-care (01) | LOC: HO.MAMMO 16:23 | PROVIDERS: PCP Internal Medicine; Visit Provider Internal Medicine | DX: Z12.31 Encounter for screening mammogram for malignant neoplasm of breast (principal) | CPT/HCPCS: 77063; 77067 ==

== ENCOUNTER → 2025-07-18 16:25 | Outpatient (BNV) | payer BC, SELFPAY | PROVIDERS: PCP Internal Medicine; Visit Provider Internal Medicine | DX: Z12.31 Encounter for screening mammogram for malignant neoplasm of breast (principal) | CPT/HCPCS: 77063; 77067 ==

== ENCOUNTER 2025-10-13 09:16 | Outpatient (REF) | payer BC, SELFPAY ==
[2025-10-13 10:08] LABS: MANUAL DIFF FLAG NO
[2025-10-13 10:19] LABS: Hematocrit 42.3 % (37.0-47.0); Hemoglobin 13.9 g/dl (12.0-16.0); Imm Gran Abs Auto 0.02 X10*3/uL (0.00-0.03); Imm Gran Pct Auto 0.3 % (0.0-0.4); Lymphocytes Absolute Auto 2.0 X10*3/uL (1.2-4.9); Mean Corpuscular HGB Conc 32.9 g/dl (31.0-35.0); Mean Corpuscular Hemoglobin 29.5 pg (27.0-33.0); Mean Corpuscular Volume 89.8 fL (80.0-98.0); NRBC Abs Auto 0.000 X10*3/uL (0.0-0.012); NRBC Pct Auto 0.0 /100WBC (0.0-0.2); Platelet Count 280 X10*3/uL (160-400); Red Blood Count 4.71 X10*6/uL (4.20-5.50); White Blood Count 6.3 X10*3/uL (4.8-10.8)
[2025-10-13 11:28] LABS: Alanine Aminotransferase 25 U/L (0-31); Albumin Level 4.4 g/dL (3.5-5.0); Alkaline Phosphatase 56 U/L (39-117); Anion Gap 9 (12-20); Aspartate Amino Transferase 20 U/L (5-31); Blood Urea Nitrogen 17 mg/dL (9-16); Calcium 9.0 mg/dL (8.4-10.2); Carbon Dioxide 29 mmol/L (22-29); Chloride 104 mmol/L (96-108); Cholesterol 205 mg/dL (<200); Estimated Glomerular Filt Rate > 60; HDL Cholesterol 67 mg/dL (>40); Potassium 4.4 mmol/L (3.3-5.1); Sodium 138 mmol/L (135-145); Total Protein 7.0 g/dL (6.5-8.0); Triglycerides 108 mg/dL (<150)
[2025-10-18 15:54] LABS: Vitamin D 25-OH, D2 <4 ng/mL; Vitamin D 25-OH, D3 29 ng/mL; Vitamin D 25-OH, Total 29 ng/mL (30-100)
== END 2025-10-13 09:17 | disposition home or self-care (01) ==
LOC: HO.HMGCLDS 09:16
PROVIDERS: PCP Internal Medicine; Visit Provider Internal Medicine
DX: Z00.00 Encounter for general adult medical examination without abnormal findings (principal); I10 Essential (primary) hypertension; K21.9 Gastro-esophageal reflux disease without esophagitis; R73.01 Impaired fasting glucose; Z91.09 Other allergy status, other than to drugs and biological substances
CPT/HCPCS: 36415; 80053; 80061; 82306; 83036; 84443; 85025

== ENCOUNTER 2025-10-15 15:44 | Outpatient (AMB) | payer BC, SELFPAY ==
--- NOTE | 2025-10-15 15:44 | HO.NEPHOV ---
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 She was diagnosed with hypertension and has taken atenolol in the past which was later switched to hydrochlorothiazide. Her blood pressure continued to be labile. She has no history of hypokalemia, renal dysfunction, hypercalcemia, sleep apnea, palpitation, diarrhea, sweating, orthostatic hypotension, tachycardia. She has 2 children and not have any preeclampsia during pregnancies. She used due consume normal sodium diet which she is working on. She has lost some weight. She does not use any excessive nonsteroidal anti-inflammatories. She has no history of drug use. She denies any chest pain, shortness of breath, paroxysmal nocturnal dyspnea, orthopnea, pedal edema or urinary symptoms. She has no history of coronary artery disease, congestive heart failure, CVA, carotid stenosis, peripheral arterial disease or renal artery stenosis. One of the urine samples in the past showed some proteinuria which was never quantified. She was started on losartan and her blood pressure has improved [facility] Medical History HTN (hypertension) Allergy-induced asthma Diverticulitis of intestine with perforation and abscess GERD (gastroesophageal reflux disease) Acute abdomen Diverticulitis Surgical History Status post excision of lipoma (01/15/25) Hx of colonoscopy History of colostomy reversal (03/21/22) Hx of esophagogastroduodenoscopy History of appendectomy (02/03/22) Status post Zana's procedure Family History Father HTN (hypertension) History of CVA (cerebrovascular accident) Mother No problems noted. Maternal Grandfather Myocardial infarction Paternal Grandfather Myocardial infarction Brother No problems noted. Sister No problems noted. Daughter No problems noted. Daughter No problems noted. Social History Household Members: Spouse and Family Household Members Other:: Mother and children Housing: House Are you a primary complex care nurse to a significant other at home: No Do you presently have visiting nurse or other home services: Yes (Mary MADRID- since Sx 01/2022) Patient Tobacco Use Status: Former Tobacco user Tobacco use type: Cigarette Cigarette Packs Per Day: 0.25 Cigarettes Per Day: 5.0 Years Smoked: 25 e-Cigarette/Vaping Use: Never Used service: No Current occupational status: employed Cognitive needs: No Hearing needs: No Vision needs: No Review of Systems Const All systems reviewed & are unremarkable except as noted in HPI and below Physical Exam Const General: comfortable and no acute distress Orientation/consciousness: patient oriented x3 HEENT Head: Yes normocephalic Mouth: Normal oral and palatal mucosa present Eyes EOM: EOMs intact bilaterally Neck Neck: Yes supple Resp Auscultation: clear to auscultation bilaterally Cardio Jugular venous distension: no JVD Rate: regular rate GI Palpation (GI): Soft to palpation Auscultation: normal bowel sounds General: Yes no CVA tenderness Back/Spine/Pelvis Back: no CVA tenderness Skin General skin exam: no rashes or lesions noted Neuro General: patient oriented x3 and moves all extremities Extrem General: Yes no pedal edema Results Reviewed Nephrology Results: Hgb, (12.0-16.0) 13.9 g/dl 10/13/25 WBC, (4.8-10.8) 6.3 X10*3/uL 10/13/25 Plt Count, (160-400) 280 X10*3/uL 10/13/25 Sodium, (135-145) 138 mmol/L 10/13/25 Potassium, (3.3-5.1) 4.4 mmol/L 10/13/25 Chloride, (96-108) 104 mmol/L 10/13/25 Carbon Dioxide, (22-29) 29 mmol/L 10/13/25 BUN, (9-16) 17 mg/dL H 10/13/25 Creatinine, (0.5-1.4) 0.70 mg/dL 10/13/25 Calcium, (8.4-10.2) 9.0 mg/dL 10/13/25 Assessment & Plan Assessment & Plan (1) Labile hypertension: Code(s): R09.89 - Other specified symptoms and signs involving the circulatory and respiratory systems Category: Medical Plan Abby has primary hypertension . She was on atenolol which was later changed to hydrochlorothiazide. She had some proteinuria in the past which was not quantified. I discontinued her hydrochlorothiazide and started her on losartan 25 mg daily which I increased to 50 mg twice daily today. She is trying to cut back on her sodium in the diet. She does not take any excessive nonsteroidal anti-inflammatories. I discussed with her regarding the interaction of NSAIDs and ARB. She was encouraged to continue her lifestyle modification and maintain good hydration. All recent labs reviewed. All questions answered. Follow-up appointment given Medications: Changed From losartan 25 mg PO BID 90 days 180 tabs 4RF To losartan 50 mg PO BID 90 days 180 tabs 4RF Refilled losartan 50 mg PO BID 180 tabs 4RF 90 days Coding Level of Care Code Est Pt Level 4 (82541) Diagnoses Labile hypertension R09.89
[2025-10-15 15:46] VITALS: BP 144/90; BMI 28.5
== END 2025-10-15 15:58 | disposition home or self-care (01) ==
LOC: HO.HKA 15:44
PROVIDERS: PCP Internal Medicine; Visit Provider Internal Medicine Nephrology
DX: R09.89 Other specified symptoms and signs involving the circulatory and respiratory systems (principal)
CPT/HCPCS: 99214

== ENCOUNTER 2025-10-21 08:26 | Outpatient (AMB) | payer BC, SELFPAY ==
[2025-10-21 08:27] VITALS: BP 122/78; PULSE 70; O2SAT 98; BMI 28.3
--- NOTE | 2025-10-21 08:27 | MHC.PC.OV ---
Vital Signs 10/21/25 08:27 Height 5 ft 2 in Weight 155 lb BMI 28.3 BP 122/78 Blood Pressure Location Lt brachial Position Sitting Pulse 70 Pulse Source Pulse Oximeter Pulse Oximetry (%) 98 Intake Visit Reasons: major hair loss Allergies No Known Allergies (No Known Allergies*) Allergy (Verified 10/21/25 08:27) Medication List - Last Reconciled 10/21/25 by Kate Ramos MD albuterol sulfate 90 mcg/actuation 2 puffs inhalation Q6H PRN betamethasone dipropionate 0.05% 1 appl topical DAILY PRN [calcium PO DAILY] lorazepam 0.5 mg PO DAILY PRN 2 days losartan 50 mg PO BID 90 days multivitamin 1 tab PO DAILY omega-3 fatty acids PO DAILY omeprazole 20 mg PO DAILY simethicone (Gas Relief (simethicone)) 125 mg PO BID-QID PRN Tobacco use date assessed: 05/21/25 Dental Screening Dental Screen Date: 10/21/25 Did you have a dental visit in the last 12 months?: Yes Did you have a dental problem in the last 6 months where you did not have access to dental care?: No Was dental information given to patient?: Patient has dentist HPI HPI Comments History of Present Illness Details History of Present Illness The patient is a 45 year old individual presenting with major hair loss. Alopecia: - The patient first noticed major hair loss approximately one to two months ago. - The patient reports a significant decrease in hair volume, noting a reduction from a previously big ponytail. - The patient has tried biotin supplements and pumpkin seed oil without improvement. Prediabetes: - Recent lab results confirm an ongoing status of prediabetes. Vitamin D Deficiency: - Recent lab work revealed a slightly low vitamin D level. - The patient reports currently taking vitamin D supplements. Irregular Menstruation: - The patient's periods have become irregular, with increased frequency. - The patient has an upcoming appointment with an HOME AND SCHOOL VISITOR in two weeks to address this. History of Skin Tags: - The patient had multiple skin tags removed by a visual supervisor one day prior to the visit. Medical History: - Prediabetes - Vitamin D deficiency - Irregular menstruation - History of skin tags Surgical History: - Recent removal of skin tags by a visual supervisor Medications: - Vitamin D supplement Family History: - The patient's daughter has alopecia and was prescribed minoxidil. Diagnostic Results: - Labs: - CBC is normal with no evidence of anemia. - Kidney function tests are normal. - Liver enzymes are normal. - LDL cholesterol is 117 mg/dL. - Total cholesterol is normal. - Vitamin D level is slightly low. [facility] Medical History HTN (hypertension) Allergy-induced asthma Diverticulitis of intestine with perforation and abscess GERD (gastroesophageal reflux disease) Acute abdomen Diverticulitis Surgical History Status post excision of lipoma (01/15/25) Hx of colonoscopy History of colostomy reversal (03/21/22) Hx of esophagogastroduodenoscopy History of appendectomy (02/03/22) Status post Zana's procedure Family History Father HTN (hypertension) History of CVA (cerebrovascular accident) Mother No problems noted. Maternal Grandfather Myocardial infarction Paternal Grandfather Myocardial infarction Brother No problems noted. Sister No problems noted. Daughter No problems noted. Daughter No problems noted. Social History Household Members: Spouse and Family Household Members Other:: Mother and children Housing: House Are you a primary health care liaison to a significant other at home: No Do you presently have visiting nurse or other home services: Yes (Mary WALKER- since Sx 01/2022) Patient Tobacco Use Status: Former Tobacco user Tobacco use type: Cigarette Cigarette Packs Per Day: 0.25 Cigarettes Per Day: 5.0 Years Smoked: 25 e-Cigarette/Vaping Use: Never Used service: No Current occupational status: employed Cognitive needs: No Hearing needs: No Vision needs: No Questionnaire PHQ-9 Over the last 2 weeks, how often have you been bothered by any of the following problems? 1. Little interest or pleasure in doing things: not at all 2. Feeling down, depressed, or hopeless: not at all 3. Trouble falling or staying asleep, or sleeping too much: several days 4. Feeling tired or having little energy: not at all 5. Poor appetite or overeating: not at all 6. Feeling bad about yourself - or that you are a failure or have let yourself or your family down: not at all 7. Trouble concentrating on things, such as reading the newspaper or watching television: not at all 8. Moving or speaking so slowly that other people could have noticed. Or the opposite - being so fidgety or restless that you have been moving around a lot more than usual: not at all 9. Thoughts that you would be better off or of hurting yourself in some way: not at all Total score: 1 Depression Screening Interpretation: Negative Depression Screening Done: Yes 50410 - PHQ-9 Billing: Yes Source: Developed by Drs. Louis Gonzalez, Vani Marrufo, Rex Sprague and colleagues, with an educational easton from [employer] Thrive Questionnaire Date Thrive assessed: 10/21/25 I am a: Patient What is your living situation today?: I have a steady place to live Within the past 12 months, did the food you bought not last and you didn't have the money to get more?: Never true Within the past 12 months, did you worry whether your food would run out before you got money to buy more?: Never true Do you have trouble paying for medicines?: No Do you have trouble getting transportation to medical appointments?: No Do you have trouble paying your heating and electricity bill?: No Do you have trouble taking care of your child, family member or friend?: No Do you have trouble with day-to-day activities such as bathing, preparing meals, shopping, managing finances, etc.?: No Are you currently unemployed and looking for a job?: No Are you interested in more education?: No Please select the resources that you would like help with: None Currently or been in a relationship where the following occur: No concerns reported THRIVE Score: 0 AUDIT C Alcohol Use Questionnaire (AUDIT-C) 1. How often do you have a drink containing alcohol?: Never 3. How often do you have six or more drinks on one occasion?: Never Total Score: 0 Score Reviewed/Action Taken: Yes MICAELA-7 AMB Questionnaire MICAELA-7 Date MICAELA - 7 assessed: 10/21/25 Feeling nervous, anxious, or on edge: 0 = Not at all Not being able to stop or control worryin = Not at all Worrying too much about different things: 0 = Not at all Trouble relaxin = Not at all Being so restless that it is hard to sit still: 0 = Not at all Becoming easily annoyed or irritable: 0 = Not at all Feeling afraid as if something awful might happen: 0 = Not at all Total MICAELA-7 score (0-4 normal; 5-9 mild; 10-14 moderate; 15-21 severe): 0 Source: Developed by Drs. Louis Gonzalez, Vani Marrufo, Rex Sprague and colleagues, with an educational easton from [employer] MICAELA-7 Assessment Billing MICAELA-7 Assessment Tool: MICAELA-7 Assessment 77564 Review of Systems Narrative Review of Systems - General: No fever no chills - Neurological: No headaches no dizziness - Ear nose throat: No sore throat no hearing difficulty no ear pain - Cardiovascular: No syncope, no chest pain, no palpitations - Gastrointestinal: No nausea vomiting or diarrhea - Endocrine: No polyuria polydipsia no heat intolerance - Genitourinary: No dysuria , no blood in urine Physical exam (Primary Care) Vital Signs: Last Vital Signs Pulse 70 10/21/25 08:27 BP 122/78 10/21/25 08:27 Pulse Ox 98 10/21/25 08:27 BMI result Body Mass Index 28.3 Tobacco/Smoking Status: Tobacco use Status Tobacco use date assessed 05/21/25 10/21/25 08:31 Patient Tobacco Use Status Former Tobacco user 10/21/25 08:31 Tobacco use type Cigarette 10/21/25 08:31 e-Cigarette/Vaping Use Never Used 10/21/25 08:31 PHQ-9: PHQ-9 Score PHQ-9: Total score 1 10/21/25 08:31 Depression Screening Interpretation: Negative Thrive Assessment: Date of Thrive Assessment Date Thrive assessed 10/21/25 10/21/25 08:31 Currently or been in a relationship where the following occur: No concerns reported Narrative Physical Exam General: No acute distress HEENT: No acute findings, female pattern hair lose present Neck: Supple Respiratory system: Able to talk in full sentences, no audible wheeze Cardiovascular: S1-S2 regular in rate and rhythm Gastrointestinal: No pain Extremities: No new findings ROAD CROSSING GUARD: Alert awake oriented x3 motor intact Skin: Skin tags removed yesterday left side of neck, normal turgor Coding Level of Care Code Est Pt Level 3 (18873) Diagnoses Alopecia L65.9 Impaired fasting blood sugar R73.01 Vitamin D deficiency E55.9 Irregular menses N92.6 Additional Codes MICAELA-7 Assessment Billing - MICAELA-7 Assessment Tool: MICAELA-7 Assessment 75807 ([id number]) PHQ-9 - 99160 - PHQ-9 Billing: Yes ([id number]) Assessment & Plan Assessment & Plan (1) Alopecia: Code(s): L65.9 - Nonscarring hair loss, unspecified Category: Medical (2) Impaired fasting blood sugar: Code(s): R73.01 - Impaired fasting glucose Category: Medical (3) Vitamin D deficiency: Code(s): E55.9 - Vitamin D deficiency, unspecified Category: Medical (4) Irregular menses: Code(s): N92.6 - Irregular menstruation, unspecified Category: Medical Plan Problem List - Alopecia - Prediabetes - Vitamin D deficiency - Irregular menstruation - History of skin tags Plan - Prescribed minoxidil 2.5 mg oral daily for alopecia. - The patient is instructed to take minoxidil for one week and then add finasteride 5 mg. - Advised that it may take up to four months to see results from the medication. - Recommended to continue taking vitamin D supplements. - Patient may take a multivitamin supplement as desired. - The patient will follow up with the HOME AND SCHOOL VISITOR in two weeks for irregular menstruation. - Schedule a follow-up appointment in three to four months to assess treatment response. Medications: New finasteride 5 mg PO DAILY 90 tabs 0RF minoxidil 2.5 mg PO DAILY 90 tabs 0RF Discontinued lorazepam 1 hour before travel, medication will make you extremely drowsy, no driving Discontinued Reason: Doctor's Order 0.5 mg PO DAILY 2 days PRN 2 tabs 0RF anxiety
== END 2025-10-21 08:56 | disposition home or self-care (01) ==
LOC: HO.HMCC 08:26
PROVIDERS: PCP Internal Medicine; Visit Provider Internal Medicine
DX: L65.9 Nonscarring hair loss, unspecified (principal); R73.01 Impaired fasting glucose; E55.9 Vitamin D deficiency, unspecified; N92.6 Irregular menstruation, unspecified

== ENCOUNTER → 2025-10-21 08:26 | Outpatient (BNVA) | payer BC, SELFPAY | PROVIDERS: PCP Internal Medicine; Visit Provider Internal Medicine | DX: L65.9 Nonscarring hair loss, unspecified (principal); R73.01 Impaired fasting glucose; E55.9 Vitamin D deficiency, unspecified; N92.6 Irregular menstruation, unspecified; J45.998 Other asthma; Z87.2 Personal history of diseases of the skin and subcutaneous tissue; Z87.19 Personal history of other diseases of the digestive system; Z13.31 Encounter for screening for depression; Z13.39 Encounter for screening examination for other mental health and behavioral disorders | CPT/HCPCS: 96127 ==